=== PATIENT | female | born 1930 | race Caucasian/White ===

== ENCOUNTER 2017-01-08 12:24 | Emergency (ER) | payer MEDICARE, OTHER ==
[~2017-01-08] VITALS: Ht 167.6 cm; Wt 46.7 kg
[~2017-01-08 12:24] MED LIST: ACDPT; ASPI-999 PO; CPR250T; HYDR-757 PO; HYDR12.5 PO; HYDR12.56 PO; LEVO100T46; LEVO112T24; LEVO125T6 PO; LEVO150T PO; LISI10TA2 PO; METO-272 PO; MTP25TSR; MULT-608; PIND5TAB PO
--- OUTSIDE RECORDS SUMMARY | 2017-01-08 12:29 | XMS REPORT | Continuity of Care Document ---
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 Supervisor Name Role Phone LB BENITEZ MD PCP Insurance Providers Payer Name Policy Number Subscriber Name Relationship [employer] [id number] Kayleigh Mello 18 Self / Same As Patient Comm Crossover Enter Ins Name [id number] Diana,Mrs Irwin Yip 18 Self / Same As Patient For Life [id number] Irwin Mello 01 Advance Directives Directive Response Recorded Date/Time Advance Directives Yes 08/28/16 2:48am Resuscitation Status Full Code 08/28/16 2:48am Chief Complaint and Reason for Visit Chief Complaint SVT-UTI-HTN Reason for Visit Hypertension SVT (supraventricular tachycardia) UTI (urinary tract infection) Problems Active Problems Medical Problem Onset Date Status Fracture of phalanx of hand Unknown Acute Hypertension Unknown Acute SVT (supraventricular tachycardia) Unknown Acute UTI (urinary tract infection) Unknown Acute Medications Current Home Medications Medication Dose Units Route Directions Days/Qty Instructions Start Date Lisinopril 10 Mg 10 Mg Oral Daily 08/28/16 Hydrochlorothiazide 12.5 Mg 12.5 Mg Oral Daily 08/28/16 Metoprolol Succinate 50 Mg 50 Mg Oral Daily 30 08/29/16 Aspirin 81 Mg 81 Mg Oral Daily 30 08/29/16 Levothyroxine Sodium 150 Mcg 150 Mcg Oral Daily@0630 30 08/29/16 Past Home Medications Medication Directions Ordered Status Ciprofloxacin Hcl 250 Mg Tablet, 05/10/09 Discontinued Multivitamins 1 Tab Tablet, 05/10/09 Discontinued Levothyroxine Sodium 112 Mcg Tablet, 05/10/09 Discontinued Levothyroxine Sodium 100 Mcg Tablet, 05/10/09 Discontinued Metoprolol Succinate (Metoprolol Er 25MG) 25 Mg Tab, 05/10/09 Discontinued Acetaminophen/Diphenhydramine 1 Ea Tab, 05/10/09 Discontinued Hydrocodone Bit/Acetaminophen 1 Each Tablet, 1 Ea Oral Every 6 Hours as needed for Mild Pain 10/10/13 Discontinued Hydrochlorothiazide 12.5 Mg Tablet, 12.5 Mg Oral Daily 08/28/16 Discontinued Pindolol 5 Mg Tablet, 5 Mg Oral Daily 08/28/16 Discontinued Levothyroxine Sodium 125 Mcg Tablet, 125 Mcg Oral Daily 08/28/16 Discontinued Social History Social History Problem Response Recorded Date/Time Alcohol Use Occasionally Uses 10/10/2013 3:44pm Recreational Drug Use Yes 10/10/2013 3:44pm Recent Foreign Travel No 08/28/2016 2:52am Recent Infectious Disease Exposure No 08/28/2016 2:52am Smoking Status Current Everyday Smoker 08/28/2016 2:51am Type Used Cigarettes 08/29/2016 11:23am Recent Hopitalizations Yes 08/28/2016 2:49am Query Response Start Date Stop Date Smoking Status Current Everyday Smoker Hospital Discharge Instructions Patient Instructions Physician Instructions New, Converted or Re-Newed RX: Transmitted to Pharmacy Goal/Follow Up Appt: Dr Benitez next week Dr Durham in 2 weeks Patient Instructions: Stop smoking Take medicine as directed Discharge Diet: Cardiac Diet Activity as Tolerated: Yes Care Plan Patient Instructions:: Stop smokingTake medicine as directed Goal:: Dr Benitez next weekDr Durham in 2 weeks Plan of Care Discharge Date 08/29/16 11:05am Disposition 01 HOME, SELF-CARE Instructions/Education Provided Palpitations (GEN) Prescriptions See Medication Section Care Plan and Goals See Discharge Instructions Section Functional Status Query Response Date Recorded Patient Orientation Person Place Time Situation Normal For Age August 29, 2016 11:22am Comprehension Ability Understands Concepts August 29, 2016 9:34am Allergies, Adverse Reactions, Alerts No known allergies. Immunizations Name Given Type FLU TRIvalent 5 years - Adult 08/29/16 Administered Vital Signs Acute Vital Signs Vital Response Date/Time Temperature (Fahrenheit) 96.2 degrees F (97.6 - 99.5) 08/29/2016 11:05am Temperature (Calculated Celsius) 35.48203 degrees C (36.4 - 37.5) 08/29/2016 8:00am Temperature Source Tympanic 08/29/2016 11:05am Pulse Rate (adult) 61 bpm (60 - 90) 08/29/2016 11:05am Respiratory Rate 19 bpm (12 - 24) 08/29/2016 11:05am O2 Sat by Pulse Oximetry 97 % (88 - 100) 08/29/2016 11:05am Blood Pressure 166/81 mm Hg 08/29/2016 11:05am Blood Pressure Mean 109 mm Hg 08/29/2016 8:00am Pain Numeric Pain Scale 0-No Pain 08/29/2016 11:05am Height (Feet) 5 feet 08/28/2016 2:52am Height (Inches) 5.00 inches 08/28/2016 2:52am Height (Calculated Centimeters) 165.523135 cm 08/28/2016 2:52am Weight (Pounds) 103 pounds 08/28/2016 6:00am Weight (Ounces) 3.0 oz 08/28/2016 6:00am Weight (Calculated Grams) 47828.063 gm 08/28/2016 6:00am Weight (Calculated Kilograms) 46.962002 kilograms 08/28/2016 6:00am Calculated BMI 17.2 08/28/2016 2:52am Capillary Refill Capillary Refill Less Than 3 Seconds 08/29/2016 9:34am Results Laboratory Results Test Name Result Units Flags Reference Collection Date/Time Result Date/ Time Comments White Blood Count 4.4 10^3/uL 4.3-11.0 08/29/2016 5:38am 08/29/2016 5: 51am Red Blood Count 3.63 10^6/uL L 4.35-5.85 08/29/2016 5:38am 08/29/2016 5: 51am Hemoglobin 11.8 G/DL 11.5-16.0 08/29/2016 5:38am 08/29/2016 5:51am Hematocrit 36 % 35-52 08/29/2016 5:38am 08/29/2016 5:51am Mean Corpuscular Volume 100 FL H 80-99 08/29/2016 5:38am 08/29/2016 5: 51am Mean Corpuscular Hemoglobin 33 PG 25-34 08/29/2016 5:38am 08/29/2016 5: 51am Mean Corpuscular Hemoglobin Concent 33 G/DL 32-36 08/29/2016 5:38am 5:51am Red Cell Distribution Width 13.1 % 10.0-14.5 08/29/2016 5:38am 2015 5:51am Platelet Count 196 10^3/uL 130-400 08/29/2016 5:38am 08/29/2016 5:51am Mean Platelet Volume 9.6 FL 7.4-10.4 08/29/2016 5:38am 08/29/2016 5: 51am Neutrophils (%) (Auto) 60 % 42-75 08/29/2016 5:38am 08/29/2016 5:51am Lymphocytes (%) (Auto) 23 % 12-44 08/29/2016 5:38am 08/29/2016 5:51am Monocytes (%) (Auto) 8 % 0-12 08/29/2016 5:38am 08/29/2016 5:51am Eosinophils (%) (Auto) 8 % 0-10 08/29/2016 5:38am 08/29/2016 5:51am Basophils (%) (Auto) 1 % 0-10 08/29/2016 5:38am 08/29/2016 5:51am Neutrophils # (Auto) 2.7 X 10^3 1.8-7.8 08/29/2016 5:38am 08/29/2016 5: 51am Lymphocytes # (Auto) 1.0 X 10^3 1.0-4.0 08/29/2016 5:38am 08/29/2016 5: 51am Monocytes # (Auto) 0.4 X 10^3 0.0-1.0 08/29/2016 5:38am 08/29/2016 5: 51am Eosinophils # (Auto) 0.4 10^3/uL H 0.0-0.3 08/29/2016 5:38am 08/29/2016 5 :51am Basophils # (Auto) 0.0 10^3/uL 0.0-0.1 08/29/2016 5:38am 08/29/2016 5: 51am D-Dimer 0.39 UG/ML 0.00-0.49 08/27/2016 11:45pm 08/28/2016 12:46am Urine Color YELLOW 08/27/2016 11:59pm 08/28/2016 12:18am Urine Clarity CLEAR 08/27/2016 11:59pm 08/28/2016 12:18am Urine pH 8 5-9 08/27/2016 11:59pm 08/28/2016 12:18am Urine Specific [place] 1.015 * 1.016-1.022 08/27/2016 11:59pm 2015 12:18am Urine Protein NEGATIVE NEGATIVE 08/27/2016 11:59pm 08/28/2016 12: 18am Urine Glucose (UA) NEGATIVE NEGATIVE 08/27/2016 11:59pm 08/28/2016 12 :18am Urine RBC (Auto) 1+ * NEGATIVE 08/27/2016 11:59pm 08/28/2016 12:18am Urine Ketones 1+ * NEGATIVE 08/27/2016 11:59pm 08/28/2016 12:18am Urine Nitrite POSITIVE * NEGATIVE 08/27/2016 11:59pm 08/28/2016 12: 18am Urine Bilirubin NEGATIVE NEGATIVE 08/27/2016 11:59pm 08/28/2016 12: 18am Urine Urobilinogen NORMAL MG/DL NORMAL 08/27/2016 11:59pm 08/28/2016 12 :18am Urine Leukocyte Esterase 1+ * NEGATIVE 08/27/2016 11:59pm 08/28/2016 12 :18am Urine RBC 0-2 /HPF 08/27/2016 11:59pm 08/28/2016 12:18am Urine WBC 0-2 /HPF 08/27/2016 11:59pm 08/28/2016 12:18am Urine Bacteria LARGE /HPF * 08/27/2016 11:59pm 08/28/2016 12:18am Urine Crystals NONE /LPF 08/27/2016 11:59pm 08/28/2016 12:18am Urine Casts NONE /LPF 08/27/2016 11:59pm 08/28/2016 12:18am Urine Mucus NEGATIVE /LPF 08/27/2016 11:59pm 08/28/2016 12:18am Urine Culture Indicated YES 08/27/2016 11:59pm 08/28/2016 12:18am Sodium Level 142 MMOL/L 135-145 08/29/2016 5:38am 08/29/2016 6:11am Potassium Level 4.0 MMOL/L 3.6-5.0 08/29/2016 5:38am 08/29/2016 6:11am Chloride Level 113 MMOL/L H 98-107 08/29/2016 5:38am 08/29/2016 6:11am Carbon Dioxide Level 23 MMOL/L 21-32 08/29/2016 5:38am 08/29/2016 6: 11am Anion Gap 6 MMOL/L 5-14 08/29/2016 5:38am 08/29/2016 6:11am Blood Urea Nitrogen 13 MG/DL 7-18 08/29/2016 5:38am 08/29/2016 6:11am Creatinine 0.68 MG/DL 0.60-1.30 08/29/2016 5:38am 08/29/2016 6:11am BUN/Creatinine Ratio 19 08/29/2016 5:38am 08/29/2016 6:11am Estimat Glomerular Filtration Rate > 60 08/29/2016 5:38am 2015 6:11am GFR INTERPRETIVE DATA UNITS FOR ESTIMATED GFR (eGFR): mL/min/1.73 M2 REFERENCE RANGE FOR ESTIMATED GFR (eGFR) eGFR NORMAL eGFR >60 MODERATELY DECREASED eGFR 30-59 SEVERLY DECREASED eGFR 15-29 KIDNEY FAILURE <15 (OR DIALYSIS) Glucose Level 92 MG/DL 70-105 08/29/2016 5:38am 08/29/2016 6:11am Calcium Level 8.1 MG/DL L 8.5-10.1 08/29/2016 5:38am 08/29/2016 6:11am Magnesium Level 2.2 MG/DL 1.8-2.4 08/29/2016 5:38am 08/29/2016 6:11am Total Bilirubin 0.4 MG/DL 0.1-1.0 08/27/2016 11:45pm 08/28/2016 12: 26am Alkaline Phosphatase 74 U/L 40-136 08/27/2016 11:45pm 08/28/2016 12: 26am Aspartate Amino Transf (AST/SGOT) 61 U/L H 5-34 08/27/2016 11:45pm 2015 12:26am Alanine Aminotransferase (ALT/SGPT) 42 U/L 0-55 08/27/2016 11:45pm 10/2016 12:26am Troponin I < 0.30 NG/ML <0.30 08/27/2016 11:45pm 08/28/2016 12:46am B-Type Natriuretic Peptide 166.4 PG/ML H <100.0 08/27/2016 11:45pm 2015 12:46am Total Protein 6.8 G/DL 6.4-8.2 08/27/2016 11:45pm 08/28/2016 12:26am Albumin 4.1 G/DL 3.2-4.5 08/27/2016 11:45pm 08/28/2016 12:26am Thyroid Stimulating Hormone (TSH) 42.55 UIU/ML H 0.35-4.94 08/27/2016 11: 45pm 08/28/2016 12:46am Free Thyroxine 0.81 NG/DL 0.70-1.48 08/28/2016 10:05am 08/28/2016 10: 50am Microbiology Results Procedure Source Result Collection Date/Time Result Date/Time Urine Culture Urine, Clean Catch KLEBSIELLA PNEUMONIAE 08/27/2016 11:59pm 08/29/2016 11:13am Procedures Procedure Status Date Provider(s) Tracing only of electrocardiogram Completed 08/27/16 MAYTE BAXTER DO Color Doppler echocardiography Active 08/28/16 KOBY DURHAM MD FAC FAC CCDS Encounters Encounter Location Arrival/Admit Date Discharge/Depart Date Attending Provider Discharged Inpatient (obs) [facility] 08/28/16 1:05am 11:05am LB BENITEZ MD Recent Diagnosis Hypertension SVT (supraventricular tachycardia) UTI (urinary tract infection)
--- NOTE | 2017-01-08 12:50 | ED Fall/Injury ---
General Chief Complaint: Trauma-Non Activation Stated Complaint: FALL/LEFT HIP PAIN Source: patient, family (DAUGHTERS), EMS History of Present Illness Time seen by provider: 12:24 Initial Comments PT ARRIVES VIA EMS FROM HOME PT STATES SHE WAS GETTING INTO BED AND MISSED THE BED AND FELL, LANDING ON LEFT HIP WAS ABLE TO GET HERSELF UP AT THAT TIME, BUT LATER SHE FELL AGAIN AND COULD NOT GET UP AND LAID ON THE FLOOR ALL NIGHT LONG C/O LEFT HIP PAIN ON STANDING. NO PAIN AT REST. HAS NOT TAKEN ANYTHING FOR PAIN STATES SHE DID NOT HIT HER HEAD AND NO LOSS OF CONSCIOUSNESS NO OTHER INJURIES OR PAIN NO PARESTHESIAS OR MOTOR DEFICITS PT STATES SHE HAS BALANCE PROBLEMS AND DOES FALL OCCASIONALLY, BUT REFUSES TO USE A WALKER OR CANE AND REFUSES TO GET A "LIFE ALERT" DEVICE--PT LIVES ALONE PT ALSO STATES SHE HAS BEEN SICK SINCE Friday01/03/17 WITH COUGH/CONGESTION AND FEVER OF AT LEAST 101--STATES "MIGHT HAVE BEEN HIGHER, BUT I DIDN'T CHECK IT ANY MORE" NO CHEST PAIN OR SHORTNESS OF BREATH NO NAUSEA/VOMITING/DIARRHEA PCP: DR. BENITEZ Allergies and Home Medications Allergies Coded Allergies: No Known Drug Allergies (Verified , 05/10/09) Home Medications Aspirin 81 Mg Tab.chew #30 81 MG PO DAILY Prescribed by: FUNMI LANDIN on 08/29/16 1031 Hydrochlorothiazide 12.5 Mg Capsule 12.5 MG PO DAILY (Reported) Ketorolac Tromethamine 10 Mg Tablet #15 10 MG PO Q6H Prescribed by: WES NICHOLAS on 01/08/17 1601 Levothyroxine Sodium 150 Mcg Tablet #30 150 MCG PO DAILY@0630 Prescribed by: FUNMI LANDIN on 08/29/16 1031 Lisinopril 10 Mg Tablet 10 MG PO DAILY (Reported) Metoprolol Succinate 50 Mg Tab.er.24h #30 50 MG PO DAILY Prescribed by: FUNMI LANDIN on 08/29/16 1031 Nitrofurantoin Monohyd/M-Cryst 100 Mg Capsule #20 100 MG PO BID Prescribed by: WES NICHOLAS on 01/08/17 1601 Tramadol HCl 50 Mg Tablet #20 50 MG PO Q4H Prescribed by: WES NICHOLAS on 01/08/17 1601 Constitutional: see HPI fever weakness Eyes: No Symptoms Reported Ears, Nose, Mouth, Throat: see HPI Respiratory: see HPI cough Cardiovascular: no symptoms reported other (HAS HISTORY OF IRREGULAR HEART BEAT BUT NO SYMPTOMS RECENTLY) Gastrointestinal: no symptoms reported Genitourinary: no symptoms reported Musculoskeletal: see HPINo neck pain Skin: no symptoms reported Psychiatric/Neurological: No Symptoms ReportedDenies Headache Past Jndphjp-Lyfyan-Tkrjbj Hx Patient Social History Alcohol Use: Occasionally Uses Recreational Drug Use: No Smoking Status: Current Everyday Smoker (1/2 PPD--USED TO SMOKE MORE BUT NOT SURE HOW MUCH--"DAY AND NIGHT") Type Used: Cigarettes Recent Hopitalizations: Yes Immunizations Up To Date Date of Pneumonia Vaccine: Sep 17, 2011 Seasonal Allergies Seasonal Allergies: No Surgeries HX Surgeries: Yes (HEMORROIDECTOMY, HYSTERECTOMY/BSO) Surgeries: Adenoidectomy, Appendectomy, Hysterectomy, Oophorectomy, Rectal, Tonsillectomy Respiratory Hx Respiratory Disorders: No Cardiovascular Hx Cardiac Disorders: Yes Cardiac Disorders: Hypertension, Irregular Heartbeat Neurological Hx Neurological Disorders: Yes (TREMORS) Reproductive System Hx 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, 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 Genitourinary Hx Genitourinary Disorders: No Gastrointestinal Hx Gastrointestinal Disorders: Yes Gastrointestinal Disorders: Chronic Constipation, Hemorrhoids Musculoskeletal Hx Musculoskeletal Disorders: Yes (RIGHT CARPAL TUNNEL--NO SURGERY) Musculoskeletal Disorders: Arthritis, Chronic Back Pain Endocrine Hx Endocrine Disorders: Yes Endocrine Disorders: Hypothyroidsim HEENT HX ENT Disorders: No Cancer Hx Cancer: No Psychosocial Hx Psychiatric Problems: No Integumentary HX Skin/Integumentary Disorder: No Blood Transfusions Hx Blood Disorders: Yes Physical Exam Vital Signs Vital Sign - Last 12Hours 01/08/17 12:42 Temp 100.5 Pulse 72 Resp 18 B/P 110/61 O2 Delivery Room Air O2 Flow Rate 2 Capillary Refill : General Appearance: no apparent distress thin HEENT: PERRL/EOMI normal ENT inspection Neck: non-tender full range of motion supple normal inspectionNo carotid bruit Cardiovascular: normal peripheral pulses regular rate, rhythm no edema no JVD no murmur Respiratory: no respiratory distress no accessory muscle use rales (IN RIGHT BASE) rhonchi (IN RIGHT BASE) Gastrointestinal: normal bowel sounds non tender soft Back: normal inspection no CVA tenderness no vertebral tenderness Extremities: no pedal edema no calf tenderness normal capillary refill other ( TENDERNESS OVER LEFT HIP; LEFT BUTTOCK WITH FIRM SWELLING AND MUCH TENDERNSS. 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 no motor/sensory deficits alert normal mood/affect oriented x 3 Skin: normal color warm/dry [place] Coma Score Best Eye Response: (4) Open Spontaneously Best Verbal Response: (5) Oriented Best Motor Response: (6) Obeys Commands Faith Total: 15 Progress/Results/Core Measures Results/Orders Lab Results Laboratory Tests Test 01/08/17 13:19 01/08/17 14:17 Range/Units Activated Partial Thromboplast Time 29 24-35 SEC Alanine Aminotransferase (ALT/SGPT) 19 0-55 U/L Albumin 3.7 3.2-4.5 G/DL Alkaline Phosphatase 55 40-136 U/L Anion Gap 12 5-14 MMOL/L Aspartate Amino Transf (AST/SGOT) 34 5-34 U/L BUN/Creatinine Ratio 26 Band Neutrophils 9 % Basophils # (Auto) 0.0 0.0-0.1 10^3/uL Basophils % (Manual) 0 % Basophils (%) (Auto) 0 0-10 % Blood Urea Nitrogen 23 H 7-18 MG/DL Calcium Level 8.3 L 8.5-10.1 MG/DL Carbon Dioxide Level 24 21-32 MMOL/L Chloride Level 98 98-107 MMOL/L Creatinine 0.88 0.60-1.30 MG/DL Eosinophils # (Auto) 0.0 0.0-0.3 10^3/uL Eosinophils % (Manual) 0 % Eosinophils (%) (Auto) 0 0-10 % Estimat Glomerular Filtration Rate > 60 Glucose Level 118 H 70-105 MG/DL Hematocrit 35 35-52 % Hemoglobin 11.7 11.5-16.0 G/DL INR Comment 1.1 0.8-1.4 Lymphocytes # (Auto) 0.5 L 1.0-4.0 X 10^3 Lymphocytes % (Manual) 8 % Lymphocytes (%) (Auto) 6 L 12-44 % Mean Corpuscular Hemoglobin 32 25-34 PG Mean Corpuscular Hemoglobin Concent 34 32-36 G/DL Mean Corpuscular Volume 95 80-99 FL Mean Platelet Volume 10.3 7.4-10.4 FL Monocytes # (Auto) 0.5 0.0-1.0 X 10^3 Monocytes % (Manual) 4 % Monocytes (%) (Auto) 6 0-12 % Neutrophils # (Auto) 7.3 1.8-7.8 X 10^3 Neutrophils % (Manual) 79 % Neutrophils (%) (Auto) 88 H 42-75 % Platelet Count 166 130-400 10^3/uL Poikilocytosis SLIGHT Potassium Level 4.2 3.6-5.0 MMOL/L Prothrombin Time 13.4 12.2-14.7 SEC Red Blood Count 3.67 L 4.35-5.85 10^6/uL Red Cell Distribution Width 13.3 10.0-14.5 % Sodium Level 134 L 135-145 MMOL/L Total Bilirubin 0.4 0.1-1.0 MG/DL Total Protein 6.1 L 6.4-8.2 G/DL White Blood Count 8.3 4.3-11.0 10^3/uL Urine Bacteria LARGE H /HPF Urine Bilirubin NEGATIVE NEGATIVE Urine Casts PRESENT /LPF Urine Clarity CLEAR Urine Color YELLOW Urine Crystals NONE /LPF Urine Culture Indicated YES Urine Glucose (UA) NEGATIVE NEGATIVE Urine Hyaline Casts 2-5 H /LPF Urine Ketones NEGATIVE NEGATIVE Urine Leukocyte Esterase 3+ H NEGATIVE Urine Mucus NEGATIVE /LPF Urine Nitrite NEGATIVE NEGATIVE Urine Protein 1+ H NEGATIVE Urine RBC 10-25 H /HPF Urine RBC (Auto) 4+ H NEGATIVE Urine Specific [place] 1.020 1.016-1.022 Urine Urobilinogen NORMAL NORMAL MG/DL Urine WBC 25-50 H /HPF Urine pH 5 5-9 Micro Results Microbiology 01/08/17 Influenza Types A,B Antigen (ROSALES) - Final, Complete My Orders Orders-WES NICHOLAS DO Saline Lock/Iv-Start (01/08/17 12:39) O2 (01/08/17 12:39) Monitor-Rhythm Ecg Trace Only (01/08/17 12:39) Cbc With Automated Diff (01/08/17 12:39) Comprehensive Metabolic Panel (01/08/17 12:39) Protime With Inr (01/08/17 12:39) Partial Thromboplastin Time (01/08/17 12:39) Ua Culture If Indicated (01/08/17 12:39) Blood Culture (01/08/17 12:39) Influenza A And B Antigens (01/08/17 12:39) Chest Pa/Lat (2 View) (01/08/17 12:39) Pelvis (01/08/17 12:39) Hip, Left, 2 Views (01/08/17 12:39) Ketorolac Injection (Toradol Injection) (01/08/17 13:30) Manual Differential (01/08/17 13:19) Ct Chest/Abdomen/Pelvis W (01/08/17 13:58) Iohexol Injection (Omnipaque 350 Mg/Ml 1 (01/08/17 14:30) Ns (Ivpb) (Sodium Chloride 0.9% Ivpb Bag (01/08/17 14:30) Urine Culture (01/08/17 14:17) Ceftriaxone Injection (Rocephin Injectio (01/08/17 15:45) Walker (01/08/17 16:02) Accucheck Stat ONCE (01/08/17 16:06) Saline Lock/Iv-Start (01/08/17 16:06) Medications Given in ED Current Medications Medications Dose Ordered Sig/Lesly Route Start Time Stop Time Status Last Admin Dose Admin Ceftriaxone Sodium/Sodium Chloride 50 ml @ 100 mls/hr ONCE ONCE IV 01/08/17 15:45 01/08/17 16:14 01/08/17 15:51 100 MLS/HR Iohexol 100 ml ONCE ONCE IV 01/08/17 14:30 01/08/17 14:31 DC 01/08/17 14:30 100 ML Ketorolac Tromethamine 30 mg ONCE ONCE IVP 01/08/17 13:30 01/08/17 13:31 DC 01/08/17 13:32 30 MG Sodium Chloride 100 ml 100 ml ONCE ONCE IV 01/08/17 14:30 01/08/17 14:31 DC 01/08/17 14:30 100 ML Vital Signs/I&O Vital Sign - Last 12Hours 01/08/17 01/08/17 12:42 12:42 Temp 100.5 Pulse 72 Resp 18 B/P 110/61 O2 Delivery Room Air Nasal Cannula O2 Flow Rate 2 Progress Note : Progress Note PAIN EASED WITH PAIN MEDICATION--TORADOL PT AND FAMILY COMFORTABLE WITH PT GOING HOME--WILL SEND PT HOME WITH A WALKER Diagnostic Imaging Comments CXR--NO ACUTE PROCESS XRAYS PELVIS AND LEFT HIP--NO ACUTE PROCESS PER RADIOLOGIST REPORTS @ 1350 CT CHEST / ABDOMEN/ PELVIS--LEFT BUTTOCK HEMATOMA, OTHERWISE NO ACUTE PROCESS, PER RADIOLOGIST REPORT @ 1553 Reviewed: Reviewed by Me Departure Impression Impression: Primary Impression: Status post fall Additional Impressions: Contusion of left hip, initial encounter HEMATOMA LEFT BUTTOCK UTI (urinary tract infection) Disposition: 01 HOME, SELF-CARE Condition: Stable Departure-Patient Inst. Referrals: LB BENITEZ MD (PCP/Family) Primary Care Physician Patient Instructions: Contusion (DC), Getting Up From a Fall, HEMATOMA, Preventing Falls in the Older Adult, Urinary Tract Infection, Adult (DC) Add. Discharge Instructions: USE WALKER AT ALL TIMES ALTERNATE ICE AND HEAT TO SORE AREAS AT 20 MINUTE INTERVALS FOLLOW UP WITH YOUR DR IN 3-4 DAYS FOR FURTHER CARE All discharge instructions reviewed with patient and/or family. Voiced understanding. Scripts Tramadol HCl (Ultram)50 Mg [id number] Mg PO Q4H #20 TAB Prov:WES NICHOLAS DO 01/08/17 Ketorolac Tromethamine 10 Mg [id number] Mg PO Q6H Pain #15 TAB Prov:WES NICHOLAS DO 01/08/17 Nitrofurantoin Monohyd/M-Cryst (Macrobid 100 mg Capsule)100 Mg [id number] Mg PO BID #20 CAP Prov:WES NICHOLAS DO 01/08/17 WES NICHOLAS DO Jan 08, 2017 12:50
--- NOTE | 2017-01-08 13:29 | Diagnostic Imaging Report ---
INDICATION: Fall with left hip pain. TECHNIQUE: AP and oblique views of the left hip were obtained. FINDINGS: No fracture or acute bony abnormality is seen. There is no dislocation. There is mild joint space narrowing. IMPRESSION: No acute fracture is visualized. Mild joint space narrowing of the left hip. Dictated by: Dictated on workstation # [id number]
--- NOTE | 2017-01-08 13:29 | Diagnostic Imaging Report ---
INDICATION: Status post fall with chest discomfort. TECHNIQUE: PA and lateral views of the chest were obtained at 1:15 PM. FINDINGS: The heart and mediastinal silhouette are unremarkable. There is hyperinflation, compatible with COPD. There is no acute infiltrate, pneumothorax, or pleural fluid. There is no overt bony abnormality in the chest. IMPRESSION: COPD changes with no acute process in the chest. Dictated by: Dictated on workstation # [id number]
--- NOTE | 2017-01-08 13:29 | Diagnostic Imaging Report ---
INDICATION: Fall with left pelvic and hip pain. FINDINGS: No symphyseal or SI joint diastasis. Obturator rings intact. The femoral head is directed into the acetabula. Fracture is not identified. No pathological displacement of air-containing pelvic bowel loops. IMPRESSION: Unremarkable AP pelvic radiograph complete. Dictated by: Dictated on workstation # [id number]
[2017-01-08 13:30] LABS: BASOPHILS % (AUTO) 0 % (0-10); EOSINOPHILS % (AUTO) 0 % (0-10); LYMPHOCYTES # (AUTO) 0.5 X 10^3 (1.0-4.0); LYMPHOCYTES % (AUTO) 6 % (12-44); MEAN CORPUSCULAR HEMOGLOBIN 32 PG (25-34); MEAN CORPUSCULAR HGB CONC 34 G/DL (32-36); MEAN CORPUSCULAR VOLUME 95 FL (80-99); MEAN PLATELET VOLUME 10.3 FL (7.4-10.4); MONOCYTES # (AUTO) 0.5 X 10^3 (0.0-1.0); MONOCYTES % (AUTO) 6 % (0-12); NEUTROPHILS # (AUTO) 7.3 X 10^3 (1.8-7.8); NEUTROPHILS % (AUTO) 88 % (42-75); PLATELET COUNT 166 10^3/uL (130-400); RED BLOOD COUNT 3.67 10^6/uL (4.35-5.85); RED CELL DISTRIBUTION WIDTH 13.3 % (10.0-14.5); WHITE BLOOD COUNT 8.3 10^3/uL (4.3-11.0)
[2017-01-08] MEDS ORDERED: KETOROLAC 30 MG/ML VIAL IVP ONE (13:30)
[2017-01-08 13:49] LABS: INR 1.1 (0.8-1.4); PROTHROMBIN TIME PATIENT 13.4 SEC (12.2-14.7)
[2017-01-08 13:57] LABS: ALANINE AMINOTRANSFERASE 19 U/L (0-55); ALBUMIN 3.7 G/DL (3.2-4.5); ANION GAP 12 MMOL/L (5-14); ASPARTATE AMINO TRANSFERASE 34 U/L (5-34); BILIRUBIN,TOTAL 0.4 MG/DL (0.1-1.0); BLOOD UREA NITROGEN 23 MG/DL (7-18); BUN/CREATININE RATIO 26; CALCIUM 8.3 MG/DL (8.5-10.1); CARBON DIOXIDE 24 MMOL/L (21-32); CHLORIDE 98 MMOL/L (98-107); CREATININE SERUM 0.88 MG/DL (0.60-1.30); GFR ESTIMATED > 60; GLUCOSE 118 MG/DL (70-105); POTASSIUM 4.2 MMOL/L (3.6-5.0); SODIUM 134 MMOL/L (135-145); TOTAL PROTEIN 6.1 G/DL (6.4-8.2)
[2017-01-08 14:25] LABS: BILIRUBIN,URINE NEGATIVE (NEGATIVE); KETONES,URINE NEGATIVE (NEGATIVE); LEUKOCYTE ESTERASE ,URINE 3+ (NEGATIVE); NITRITE,URINE NEGATIVE (NEGATIVE); PH,URINE 5 (5-9); PROTEIN,URINE 1+ (NEGATIVE); UROBILINOGEN,URINE NORMAL (NORMAL)
[2017-01-08 14:26] LABS: BAND NEUTROPHILS 9 %; BASOPHILS % (MANUAL) 0 %; EOSINOPHILS % (MANUAL) 0 %; LYMPHOCYTES % (MANUAL) 8 %; NEUTROPHILS % (MANUAL) 79 %; POIKILOCYTOSIS SLIGHT
[2017-01-08] MEDS ORDERED: NS 100 ML (IVPB) BAG IV ONE (14:30)
[2017-01-08] MEDS ORDERED: IOHEXOL 350 MG/ML 100 ML (OMNIPAQUE 350) VIAL IV ONE (14:30)
[2017-01-08 14:33] LABS: WBC,URINE 25-50 /HPF
[2017-01-08] MEDS ORDERED: cefTRIAXone INJECTION 1,000 MG in NS (IVPB) 50 ML IV ONE (15:45)
--- NOTE | 2017-01-08 15:49 | Diagnostic Imaging Report ---
PROCEDURE: CT chest, abdomen, and pelvis with contrast. TECHNIQUE: Multiple contiguous axial images were obtained through the chest, abdomen, and pelvis after the administration of intravenous contrast. INDICATION: Fall with left hip and chest pain. COMPARISON: Exam compared with chest CT study of 05/10/2009. FINDINGS: Chest: There is no pneumothorax. There is no hemothorax. Cyst formation, most notably in the left lower lobe, is a chronic finding. No findings suggestive of lung contusion. There is trace dependent basilar atelectasis, greater on the left. The atherosclerotic aorta is nonaneurysmal, intact, and showed no intimal injury or rupture. There is no rib fracture deformity. No evidence for pleural hematoma. No mass or lymphadenopathy. The pericardium is unremarkable. Partially visualized shoulders are nonacute, where included in the [id number]. Abdomen and pelvis: There is no intraperitoneal fluid or findings of hemoperitoneum. There is no evidence of a hollow viscus rupture. There is atherosclerosis. Dense calcifications and ectasia of the splenic arterial structures. The spleen itself is unremarkable with old benign granulomatous disease noted. Liver and spleen are nonacute and the kidneys are unobstructed and appeared well perfused. There is no adrenal mass or hematoma. The pancreas is normal. The atherosclerotic abdominal aorta shows some fusiform ectasia of its infrarenal segment at the level of the takeoff of the ANNA measuring 2.4 cm. No chiqui aneurysm formation. There is no extravasation of contrast from the urinary bladder on the delayed images. The bladder appeared unremarkable. Superior and inferior pubic rami are intact. Symphyseal and SI joint degenerative changes are chronic without diastasis. No pelvic or hip fractures identified. There is swelling and enlargement of the left gluteus medius and arlette musculature with some mild induration of the superficial subcutaneous fat in the left buttock. There was no extravasation of contrast media to suggest active bleeding and the adjacent osseous structures aside from degenerative change appeared otherwise unremarkable. IMPRESSION: 1. Chest: Chronic cystic changes. Atherosclerosis. No fracture deformity or findings of pulmonary parenchymal or pleural injury. No mediastinal hematoma or acute traumatic sequelae. 2. Abdomen and pelvis: Left gluteal swelling, in the setting of trauma presumed from intramuscular hemorrhage. No extravasation of contrast to suggest active bleeding at the time of the study and no demonstrated pelvic fracture. 3. No findings of abdominopelvic solid or hollow visceral injury. No hemoperitoneum. Dictated by: Dictated on workstation # [id number]
[2017-01-08] MEDS ORDERED: KETO10TA PO (16:01)
[2017-01-08] MEDS ORDERED: TRAM-42 PO (16:01)
[2017-01-08] MEDS ORDERED: NITR-65 PO (16:01)
[2017-01-08] MEDS ORDERED: NS IV 1000 ML 1,000 ML IV ONE (16:06)
[2017-01-08] MEDS ORDERED: inSUlin (REGULAR) HUMAN 1 UNIT/0.01 ML (CHARGE PER UNIT) IV ONE (16:15)
[2017-01-08 16:30] VITALS: BP 113/76
== END 2017-01-08 16:30 | disposition home or self-care (01) ==
LOC: EDUNIT# 12:24 → ER 12:26
DX: S70.02XA Contusion of left hip, initial encounter (principal); N39.0 Urinary tract infection, site not specified; I70.91 Generalized atherosclerosis; I10 Essential (primary) hypertension; J44.9 Chronic obstructive pulmonary disease, unspecified; F17.210 Nicotine dependence, cigarettes, uncomplicated; Z79.82 Long term (current) use of aspirin; Z79.899 Other long term (current) drug therapy; W01.0XXA Fall on same level from slipping, tripping and stumbling without subsequent striking against object, initial encounter; Y92.013 Bedroom of single-family (private) house as the place of occurrence of the external cause; Y99.8 Other external cause status
CPT/HCPCS: 36415; 71020; 71260; 72170; 73502; 74177; 80053; 81000; 85007; 85027; 85610; 85730; 87040; 87088; 87186; 87804; 93041; 96365; 96375

== ENCOUNTER 2017-04-12 06:19 | Emergency (ER) | payer MEDICARE, OTHER ==
[~2017-04-12] VITALS: Ht 165.1 cm; Wt 46.3 kg
[~2017-04-12 06:19] MED LIST changes: +KETO10TA PO; +NITR-65 PO; +TRAM-42 PO
[2017-04-12 06:50] LABS: BASOPHILS % (AUTO) 1 % (0-10); EOSINOPHILS # (AUTO) 0.4 10^3/uL (0.0-0.3); EOSINOPHILS % (AUTO) 8 % (0-10); LYMPHOCYTES # (AUTO) 1.1 X 10^3 (1.0-4.0); LYMPHOCYTES % (AUTO) 19 % (12-44); MEAN CORPUSCULAR HEMOGLOBIN 32 PG (25-34); MEAN CORPUSCULAR HGB CONC 33 G/DL (32-36); MEAN CORPUSCULAR VOLUME 97 FL (80-99); MONOCYTES # (AUTO) 0.4 X 10^3 (0.0-1.0); MONOCYTES % (AUTO) 8 % (0-12); NEUTROPHILS # (AUTO) 3.6 X 10^3 (1.8-7.8); NEUTROPHILS % (AUTO) 65 % (42-75); PLATELET COUNT 269 10^3/uL (130-400); RED BLOOD COUNT 4.02 10^6/uL (4.35-5.85); WHITE BLOOD COUNT 5.5 10^3/uL (4.3-11.0)
[2017-04-12 07:02] LABS: ALANINE AMINOTRANSFERASE 19 U/L (0-55); ALBUMIN 3.9 G/DL (3.2-4.5); ANION GAP 11 MMOL/L (5-14); ASPARTATE AMINO TRANSFERASE 28 U/L (5-34); BILIRUBIN,TOTAL 0.2 MG/DL (0.1-1.0); BLOOD UREA NITROGEN 15 MG/DL (7-18); BUN/CREATININE RATIO 20; CALCIUM 9.2 MG/DL (8.5-10.1); CARBON DIOXIDE 24 MMOL/L (21-32); CHLORIDE 105 MMOL/L (98-107); CREATININE SERUM 0.74 MG/DL (0.60-1.30); GFR ESTIMATED > 60; GLUCOSE 99 MG/DL (70-105); POTASSIUM 3.9 MMOL/L (3.6-5.0); SODIUM 140 MMOL/L (135-145); TOTAL PROTEIN 6.7 G/DL (6.4-8.2)
[2017-04-12 07:07] LABS: TROPONIN I < 0.30 NG/ML (<0.30)
[2017-04-12 07:10] LABS: BILIRUBIN,URINE NEGATIVE (NEGATIVE); KETONES,URINE NEGATIVE (NEGATIVE); LEUKOCYTE ESTERASE ,URINE 1+ (NEGATIVE); NITRITE,URINE NEGATIVE (NEGATIVE); PH,URINE 7 (5-9); PROTEIN,URINE NEGATIVE (NEGATIVE); UROBILINOGEN,URINE NORMAL (NORMAL)
[2017-04-12 07:26] LABS: HYALINE CASTS, URINE RARE /LPF; SQUAMOUS EPITHELIAL CELL,UR RARE /HPF
--- NOTE | 2017-04-12 07:26 | ED Cardiac General ---
History of Present Illness General Chief Complaint: Cardiac/General Problems Stated Complaint: CP Nursing Triage Note: Pt brought to ED by EMS with c/o intermittent chest heaviness that began at approx 0200.Hx of afib, was in afib upon EMS arrival with HR of 148. Source: patient Exam Limitations: no limitations History of Present Illness Time seen by provider: 07:22 Initial Comments The patient is an 86-year-old white female who presented by ambulance this morning. She is a bit loose on the chronology but apparently she became aware at about 0200 of a pounding in her chest. She has a past history of atrial fibrillation but states she has never had pounding before. After a bit she noted a pressure sensation in her chest and felt short of breath. She denies sweating or radiation of pain. There is no past history of heart attack or stroke. 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 Timing/Duration: 4-6 hours Location: central Prior CP/Workup: echocardiography Allergies and Home Medications Allergies Coded Allergies: No Known Drug Allergies (Verified , 05/10/09) Home Medications Aspirin 81 Mg Tab.chew, 81 MG PO DAILY, #30 Prescribed by: FUNMI LANDIN on 08/29/16 1031 Hydrochlorothiazide 12.5 Mg Capsule, 12.5 MG PO DAILY, (Reported) Ketorolac Tromethamine 10 Mg Tablet, 10 MG PO Q6H, #15 Prescribed by: WES NICHOLAS on 01/08/17 1601 Levothyroxine Sodium 150 Mcg Tablet, 150 MCG PO DAILY@0630, #30 Prescribed by: FUNMI LANDIN on 08/29/16 1031 Lisinopril 10 Mg Tablet, 10 MG PO DAILY, (Reported) Metoprolol Succinate 50 Mg Tab.er.24h, 50 MG PO DAILY, #30 Prescribed by: FUNMI LANDIN on 08/29/16 1031 Review of Systems Constitutional: see HPI EENTM: No Symptoms Reported Respiratory: SOA at Rest Cardiovascular: Chest Pain, Palpitations Gastrointestinal: No Symptoms Reported Genitourinary: No Symptoms Reported Musculoskeletal: no symptoms reported Skin: no symptoms reported Psychiatric/Neurological: No Symptoms Reported Endocrine: No Symptoms Reported Past Oqjrolv-Xufjsj-Brurba Hx Patient Social History Alcohol Use: Occasionally Uses Recreational Drug Use: Yes Smoking Status: Current Everyday Smoker Type Used: Cigarettes 2nd Hand Smoke Exposure: No Recent Foreign Travel: No Contact w/Someone Who Travel: No Recent Infectious Disease Expo: No Recent Hopitalizations: No Immunizations Up To Date Tetanus Booster (TDap): Less than 5yrs Date of Pneumonia Vaccine: Sep 17, 2011 Seasonal Allergies Seasonal Allergies: No Surgeries HX Surgeries: Yes (HEMORROIDECTOMY, HYSTERECTOMY/BSO) Surgeries: Adenoidectomy, Appendectomy, Hysterectomy, Oophorectomy, Rectal, Tonsillectomy Respiratory Hx Respiratory Disorders: No Cardiovascular Hx Cardiac Disorders: Yes Cardiac Disorders: Hypertension, Irregular Heartbeat Neurological Hx Neurological Disorders: Yes (TREMORS) Reproductive System Hx 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 Genitourinary Hx Genitourinary Disorders: No Gastrointestinal Hx Gastrointestinal Disorders: Yes Gastrointestinal Disorders: Chronic Constipation, Hemorrhoids Musculoskeletal Hx Musculoskeletal Disorders: Yes (RIGHT CARPAL TUNNEL--NO SURGERY) Musculoskeletal Disorders: Arthritis, Chronic Back Pain Endocrine Hx Endocrine Disorders: Yes Endocrine Disorders: Hypothyroidsim HEENT HX ENT Disorders: No Cancer Hx Cancer: No Psychosocial Hx Psychiatric Problems: No Integumentary HX Skin/Integumentary Disorder: No Blood Transfusions Hx Blood Disorders: Yes Physical Exam Vital Signs Vital Sign - Last 12Hours 04/12/17 06:20 Temp 97.8 Pulse 57 Resp 18 B/P (MAP) 156/86 Pulse Ox 98 Capillary Refill : Less Than 3 Seconds General Appearance: Mild Distress HEENT: Normal ENT Inspection Neck: Normal Inspection Respiratory: Chest Non Tender, Lungs Clear, Normal Breath Sounds, No Accessory Muscle Use, No Respiratory Distress Cardiovascular: Regular Rate, Rhythm, No Edema, No Gallop, No JVD, No Murmur, Normal Peripheral Pulses Gastrointestinal: Normal Bowel Sounds, No Organomegaly, No Pulsatile Mass, Non Tender Extremity: Normal Capillary Refill, Normal Inspection, Normal Range of Motion, Non Tender, No Calf Tenderness, No Pedal Edema Neurologic/Psychiatric: Alert, Oriented x3, No Motor/Sensory Deficits, Normal Mood/Affect Skin: Normal Color, Warm/Dry Lymphatic: No Adenopathy Other comments The patient had a monitor strip on EMS arrival which was nearly regular and was consistent with atrial fibrillation-flutter and RVR. The initial strip in the emergency room was that of sinus rhythm. Progress/Results/Core Measures Results/Orders Lab Results Laboratory Tests Test 04/12/17 06:20 04/12/17 06:53 Range/Units White Blood Count 5.5 4.3-11.0 10^3/uL Red Blood Count 4.02 L 4.35-5.85 10^6/uL Hemoglobin 12.8 11.5-16.0 G/DL Hematocrit 39 35-52 % Mean Corpuscular Volume 97 80-99 FL Mean Corpuscular Hemoglobin 32 25-34 PG Mean Corpuscular Hemoglobin Concent 33 32-36 G/DL Red Cell Distribution Width 13.0 10.0-14.5 % Platelet Count 269 130-400 10^3/uL Mean Platelet Volume 10.0 7.4-10.4 FL Neutrophils (%) (Auto) 65 42-75 % Lymphocytes (%) (Auto) 19 12-44 % Monocytes (%) (Auto) 8 0-12 % Eosinophils (%) (Auto) 8 0-10 % Basophils (%) (Auto) 1 0-10 % Neutrophils # (Auto) 3.6 1.8-7.8 X 10^3 Lymphocytes # (Auto) 1.1 1.0-4.0 X 10^3 Monocytes # (Auto) 0.4 0.0-1.0 X 10^3 Eosinophils # (Auto) 0.4 H 0.0-0.3 10^3/uL Basophils # (Auto) 0.0 0.0-0.1 10^3/uL Sodium Level 140 135-145 MMOL/L Potassium Level 3.9 3.6-5.0 MMOL/L Chloride Level 105 98-107 MMOL/L Carbon Dioxide Level 24 21-32 MMOL/L Anion Gap 11 5-14 MMOL/L Blood Urea Nitrogen 15 7-18 MG/DL Creatinine 0.74 0.60-1.30 MG/DL Estimat Glomerular Filtration Rate > 60 BUN/Creatinine Ratio 20 Glucose Level 99 70-105 MG/DL Calcium Level 9.2 8.5-10.1 MG/DL Total Bilirubin 0.2 0.1-1.0 MG/DL Aspartate Amino Transf (AST/SGOT) 28 5-34 U/L Alanine Aminotransferase (ALT/SGPT) 19 0-55 U/L Alkaline Phosphatase 62 40-136 U/L Troponin I < 0.30 <0.30 NG/ML Total Protein 6.7 6.4-8.2 G/DL Albumin 3.9 3.2-4.5 G/DL Urine Color YELLOW Urine Clarity SLIGHTLY CLOUDY Urine pH 7 5-9 Urine Specific [place] 1.010 L 1.016-1.022 Urine Protein NEGATIVE NEGATIVE Urine Glucose (UA) NEGATIVE NEGATIVE Urine Ketones NEGATIVE NEGATIVE Urine Nitrite NEGATIVE NEGATIVE Urine Bilirubin NEGATIVE NEGATIVE Urine Urobilinogen NORMAL NORMAL MG/DL Urine Leukocyte Esterase 1+ H NEGATIVE Urine RBC (Auto) NEGATIVE NEGATIVE Urine RBC NONE /HPF Urine WBC 2-5 /HPF Urine Squamous Epithelial Cells RARE /HPF Urine Crystals NONE /LPF Urine Bacteria MODERATE H /HPF Urine Casts PRESENT /LPF Urine Hyaline Casts RARE /LPF Urine Mucus NEGATIVE /LPF Urine Culture Indicated YES My Orders Orders - ALISSON KOVACS MD Cbc With Automated Diff (04/12/17 06:41) Comprehensive Metabolic Panel (04/12/17 06:41) Troponin I (04/12/17 06:41) Ekg Tracing (04/12/17 06:41) Chest 1 View, Ap/Pa Only (04/12/17 06:41) Ua Culture If Indicated (04/12/17 07:05) Urine Culture (04/12/17 06:53) Vital Signs/I&O Vital Sign - Last 12Hours 04/12/17 06:20 Temp 97.8 Pulse 57 Resp 18 B/P (MAP) 156/86 Pulse Ox 98 Blood Pressure Mean: 109 Departure Communication Progress Notes The laboratory shows nothing of import. The troponin is negative. The patient remains in sinus rhythm. She takes metoprolol but at a minimum dose and this will be increased Impression Impression: Primary Impression: paroxysmal atrial fibrillation with RVR Disposition: 01 HOME, SELF-CARE Condition: Improved Departure-Patient Inst. Decision time for Depature: 08:12 Referrals: LB BENITEZ MD (PCP/Family) Primary Care Physician Patient Instructions: Paroxysmal Supraventricular Tachycardia (DC) Add. Discharge Instructions: All discharge instructions reviewed with patient and/or family. Voiced understanding. Increase your metoprolol to twice daily beginning today Make an appointment for with your provider for next week to discuss blood thinners If recurrence return to ER ALISSON KOVACS MD April 12, 2017 07:26
--- NOTE | 2017-04-12 09:50 | Diagnostic Imaging Report ---
INDICATION: Chest pain. COMPARISON: 01/08/2017. FINDINGS: Right basilar ill-defined reticulonodular opacities are new since prior examination. No pleural effusion or pneumothorax. Stable borderline cardiomegaly. Atherosclerotic aorta is unchanged. Normal pulmonary vasculature. IMPRESSION: 1. New ill-defined reticulonodular opacities in the right lung base are likely due to an infectious bronchiolitis or aspiration bronchiolitis. Dictated by: Dictated on workstation # [id number]
[2017-04-12 10:15] VITALS: BP 138/75
== END 2017-04-12 10:15 | disposition home or self-care (01) ==
LOC: EDUNIT# 06:19 → ER 06:20
DX: I48.0 Paroxysmal atrial fibrillation (principal); E03.9 Hypothyroidism, unspecified; F17.210 Nicotine dependence, cigarettes, uncomplicated; Z79.899 Other long term (current) drug therapy; Z79.82 Long term (current) use of aspirin
CPT/HCPCS: 36415; 71010; 80053; 81000; 84484; 85025; 87077; 87088; 87186; 93005

== ENCOUNTER → 2017-04-23 | Outpatient (CLI) | payer MEDICARE, OTHER ==
--- NOTE | 2017-04-23 14:28 | Diagnostic Imaging Report ---
EXAMINATION: PA and lateral views of the chest. INDICATION: Shortness of breath. FINDINGS: The lungs are hyperinflated. The previously seen interstitial thickening in the right lung base has resolved with remaining linear atelectasis. There is minimal atelectasis and scarring suggested in the left lung base. Tiny bilateral effusions are noted. The heart size is at the upper limits of normal. No pneumothorax. IMPRESSION: COPD. Tiny pleural effusions with bibasilar atelectasis. Dictated by: Dictated on workstation # [id number]
== END ==
LOC: RAD 09:43
PROVIDERS: ATTEND Nurse Practitioner
DX: J44.0 Chronic obstructive pulmonary disease with (acute) lower respiratory infection (principal); J18.9 Pneumonia, unspecified organism
CPT/HCPCS: 71020

== ENCOUNTER → 2017-04-30 | Outpatient (CLI) | payer MEDICARE, OTHER ==
--- NOTE | 2017-04-30 12:55 | Diagnostic Imaging Report ---
INDICATION: Lower respiratory infection. PA and lateral chest. Heart size and pulmonary vascularity are normal. Lungs are clear. There are no effusions or pneumothoraces. IMPRESSION: Negative chest. Dictated by: Dictated on workstation # [id number]
== END ==
LOC: RAD 12:24
PROVIDERS: ATTEND Nurse Practitioner
DX: J18.9 Pneumonia, unspecified organism (principal)
CPT/HCPCS: 71020

== ENCOUNTER 2018-01-19 07:29 | Inpatient (IN) | payer MEDICARE, OTHER ==
[~2018-01-19] VITALS: Ht 165.1 cm; Wt 46.0 kg
[2018-01-19] VITALS (15 sets, daily range): BP systolic 106–164; BP diastolic 72–91
[~2018-01-19 07:29] MED LIST changes: -METO-272 PO; +METO-370 PO
--- OUTSIDE RECORDS SUMMARY | 2018-01-19 07:35 | XMS REPORT | Continuity of Care Document ---
Author Author [facility] Organization [facility] Address Unknown Phone Unavailable Allergies Active Description Code Type Severity Reaction Onset Reported/Identified Relationship to Patient Clinical Status Yes No Known Drug Allergies [id number] Drug Allergy Unknown N/A 05/10/2009 Medications There is no data. 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 08/29/2016 LB BENITEZ MD Ot I10 ESSENTIAL (PRIMARY) HYPERTENSION 08/29/2016 LB BENITEZ MD Ot I47.1 SUPRAVENTRICULAR TACHYCARDIA 08/29/2016 LB BENITEZ MD Ot R07.89 OTHER CHEST PAIN 08/29/2016 LB BENITEZ MD Ot R63.6 UNDERWEIGHT 08/29/2016 LB BENITEZ MD Ot R94.31 ABNORMAL ELECTROCARDIOGRAM [ECG] [EKG] 08/29/2016 LB BENITEZ MD Ot Z23 ENCOUNTER FOR IMMUNIZATION 08/29/2016 LB BENITEZ MD Ot Z68.1 BODY MASS INDEX (BMI) 19 OR LESS, ADULT 08/29/2016 LB BENITEZ MD Ot Z91.14 PATIENT'S OTHER NONCOMPLIANCE WITH MEDIC 09/25/2016 JESUS SMALL FACC, KOBY CUNHAP CCDS Ot I47.1 SUPRAVENTRICULAR TACHYCARDIA 09/25/2016 JESUS SMALL FACC, ALI GUERLINEP CCDS Ot R07.89 OTHER CHEST PAIN 09/25/2016 JESUS SMALL FACC, KOBY FACP CCDS Ot Z72.0 TOBACCO USE 10/15/2016 LB BENITEZ MD Ot E03.9 HYPOTHYROIDISM, UNSPECIFIED 10/15/2016 LB BENITEZ MD Ot F17.210 NICOTINE DEPENDENCE, CIGARETTES, UNCOMPL 10/15/2016 LB BENITEZ MD Ot 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 10/15/2016 LB BENITEZ MD Ot I10 ESSENTIAL (PRIMARY) HYPERTENSION 10/15/2016 LB BENITEZ MD Ot I47.1 SUPRAVENTRICULAR TACHYCARDIA 10/15/2016 LB BENITEZ MD Ot R07.89 OTHER CHEST PAIN 10/15/2016 LB BENITEZ MD Ot R63.6 UNDERWEIGHT 10/15/2016 LB BENITEZ MD Ot R94.31 ABNORMAL ELECTROCARDIOGRAM [ECG] [EKG] 10/15/2016 LB BENITEZ MD Ot Z23 ENCOUNTER FOR IMMUNIZATION 10/15/2016 LB BENITEZ MD Ot Z68.1 BODY MASS INDEX (BMI) 19 OR LESS, ADULT 10/15/2016 LB BENITEZ MD Ot Z91.14 PATIENT'S OTHER NONCOMPLIANCE WITH MEDIC 10/17/2016 JESUS SMALL FACC, KOBY FACP CCDS Ot I47.1 SUPRAVENTRICULAR TACHYCARDIA 10/17/2016 JESUS SMALL FACC, KOBY FACP CCDS Ot R07.89 OTHER CHEST PAIN 10/17/2016 JESUS SMALL FACC, ALI FACP CCDS Ot Z72.0 TOBACCO USE 11/12/2016 JESUS SMALL FACC ALI FACP CCDS Ot I47.1 SUPRAVENTRICULAR TACHYCARDIA 11/12/2016 JESUS SMALL FACC, ALI FACP CCDS Ot R07.89 OTHER CHEST PAIN 11/12/2016 JESUS SMALL FACC, ALI FACP CCDS Ot Z72.0 TOBACCO USE 01/08/2017 JESUS SMALL FACC, ALI FACP CCDS Ot I47.1 SUPRAVENTRICULAR TACHYCARDIA 01/08/2017 JESUS SMALL FACC, ALI FACP CCDS Ot R07.89 OTHER CHEST PAIN 01/08/2017 JESUS SMALL FACC, ALI FACP CCDS Ot Z72.0 TOBACCO USE 01/08/2017 WES NICHOLAS DO Ot F17.210 NICOTINE DEPENDENCE, CIGARETTES, UNCOMPL 01/08/2017 WES NICHOLAS DO Ot I10 ESSENTIAL (PRIMARY) HYPERTENSION 01/08/2017 YU OSCARWES Ot I70.91 GENERALIZED ATHEROSCLEROSIS 01/08/2017 YU OSCAR WES Leann Ot J44.9 CHRONIC OBSTRUCTIVE PULMONARY DISEASE, U 01/08/2017 WES NICHOLAS DO Leann Cook N39.0 URINARY TRACT INFECTION, SITE NOT SPECIF 01/08/2017 WES NICHOLAS DO Leann Ot S70.02XA CONTUSION OF LEFT HIP, INITIAL ENCOUNTER 01/08/2017 YU OSCAR WES Leann Cook S79.912A UNSPECIFIED INJURY OF LEFT HIP, INITIAL 01/08/2017 YU OSCAR WES Leann Ot W01.0XXA FALL SAME LEV FROM SLIP/TRIP W/O STRIKE 01/08/2017 YU OSCARWES Ot Y92.013 BEDROOM OF SINGLE-FAMILY (PRIVATE) HOUSE 01/08/2017 YU OSCAR WES K Ot Y99.8 OTHER EXTERNAL CAUSE STATUS 01/08/2017 YU DOWES Ot Z79.82 CORRECTION (CURRENT) USE OF ASPIRIN 01/08/2017 WES NICHOLAS DO Ot 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 01/08/2017 JESUS SMALL FAC, ALI FACP CCDS Ot I47.1 SUPRAVENTRICULAR TACHYCARDIA 01/08/2017 JESUS SMALL FACC, ALI FACP CCDS Ot R07.89 OTHER CHEST PAIN 01/08/2017 JESUS SMALL FAC, ALI FACP CCDS Ot Z72.0 TOBACCO USE 04/12/2017 ALISSON KOVACS MD Ot E03.9 HYPOTHYROIDISM, UNSPECIFIED 04/12/2017 ALISSON KOVACS MD Ot F17.210 NICOTINE DEPENDENCE, CIGARETTES, UNCOMPL 04/12/2017 ALISSON KOVACS MD Ot I48.0 PAROXYSMAL ATRIAL FIBRILLATION 04/12/2017 ALISSON KOVACS MD Ot R07.9 CHEST PAIN, UNSPECIFIED 04/12/2017 ALISSON KOVACS MD Ot Z79.82 CORRECTION (CURRENT) USE OF ASPIRIN 04/12/2017 ALISSON KOVACS MD Ot Z79.899 OTHER CORRECTION (CURRENT) DRUG THERAPY 04/15/2017 ALISSON KOVACS MD Ot E03.9 HYPOTHYROIDISM, UNSPECIFIED 04/15/2017 ALISSON KOVACS MD Ot F17.210 NICOTINE DEPENDENCE, CIGARETTES, UNCOMPL 04/15/2017 ALISSON KOVACS MD Ot I48.0 PAROXYSMAL ATRIAL FIBRILLATION 04/15/2017 ALISSON KOVACS MD Ot R07.9 CHEST PAIN, UNSPECIFIED 04/15/2017 ALISSON KOVACS MD Ot 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 04/15/2017 ALISSON KOVACS MD Ot Z79.899 OTHER CORRECTION (CURRENT) DRUG THERAPY 04/16/2017 ALISSON KOVACS MD Ot E03.9 HYPOTHYROIDISM, UNSPECIFIED 04/16/2017 ALISSON KOVACS MD Ot F17.210 NICOTINE DEPENDENCE, CIGARETTES, UNCOMPL 04/16/2017 ALISSON KOVACS MD Ot I48.0 PAROXYSMAL ATRIAL FIBRILLATION 04/16/2017 ALISSON KOVACS MD Ot R07.9 CHEST PAIN, UNSPECIFIED 04/16/2017 ALISSON KOVACS MD Ot Z79.82 CORRECTION (CURRENT) USE OF ASPIRIN 04/16/2017 ALISSON KOVACS MD Ot Z79.899 OTHER CORRECTION (CURRENT) DRUG THERAPY 04/25/2017 ROSALINO [employer]BER Ot J18.9 PNEUMONIA, UNSPECIFIED ORGANISM 04/25/2017 ROASLINO [employer] Ot J44.0 CHRONIC OBSTRUCTIVE PULMON DISEASE [facility] 05/02/2017 ROSALINO [employer] Ot J18.9 PNEUMONIA, UNSPECIFIED ORGANISM 05/22/2017 ROSALINO [employer] Ot J18.9 PNEUMONIA, UNSPECIFIED ORGANISM 05/22/2017 ROSALINO [employer]BER Ot J44.0 CHRONIC OBSTRUCTIVE PULMON DISEASE [facility] 05/26/2017 ROSALINO [employer] Ot J18.9 PNEUMONIA, UNSPECIFIED ORGANISM 06/23/2017 KIRSTY [employer]BER Ot J18.9 PNEUMONIA, UNSPECIFIED ORGANISM 06/23/2017 ROSALINO [employer] Ot J18.9 PNEUMONIA, UNSPECIFIED ORGANISM 06/23/2017 ROSALINO [employer]BER Ot J44.0 CHRONIC OBSTRUCTIVE PULMON DISEASE W [facility] 06/23/2017 ROSALINO [employer] Ot J18.9 PNEUMONIA, UNSPECIFIED ORGANISM Procedures There is no data. Results Test Result Range Complete blood count (CBC) with automated white blood cell (WBC) differential - 08/27/16 23:45 Blood leukocytes automated count (number/volume) 4.9 10*3/uL 4.3-11.0 Blood erythrocytes automated count (number/volume) 3.97 10*6/uL 4.35-5.85 Venous blood hemoglobin measurement (mass/volume) 12.9 g/dL 11.5-16.0 Blood hematocrit (volume fraction) 39 % 35-52 Automated erythrocyte mean corpuscular volume 98 [foz_us] 80-99 Automated erythrocyte mean corpuscular hemoglobin (mass per erythrocyte) 33 pg 25-34 Automated erythrocyte mean corpuscular hemoglobin concentration measurement ( mass/volume) 33 g/dL 32-36 Automated erythrocyte distribution width ratio 12.9 % 10.0-14.5 Automated blood platelet count (count/volume) 204 10*3/uL 130-400 Automated blood platelet mean volume measurement 10.2 [foz_us] 7.4-10.4 Automated blood neutrophils/100 leukocytes 54 % 42-75 Automated blood lymphocytes/100 leukocytes 30 % 12-44 Blood monocytes/100 leukocytes 9 % 0-12 Automated blood eosinophils/100 leukocytes 8 % 0-10 Automated blood basophils/100 leukocytes 1 % 0-10 Blood neutrophils automated count (number/volume) 2.6 10*3 1.8-7.8 Blood lymphocytes automated count (number/volume) 1.5 10*3 1.0-4.0 Blood monocytes automated count (number/volume) 0.4 10*3 0.0-1.0 Automated eosinophil count 0.4 10*3/uL 0.0-0.3 Automated blood basophil count (count/volume) 0.0 10*3/uL 0.0-0.1 Comprehensive metabolic panel - 08/27/16 23:45 Serum or plasma sodium measurement (moles/volume) 138 mmol/L 135-145 Serum or plasma potassium measurement (moles/volume) 4.3 mmol/L 3.6-5.0 Serum or plasma chloride measurement (moles/volume) 104 mmol/L 98-107 Carbon dioxide 19 mmol/L 21-32 Serum or plasma anion gap determination (moles/volume) 15 mmol/L 5-14 Serum or plasma urea nitrogen measurement (mass/volume) 23 mg/dL 7-18 Serum or plasma creatinine measurement (mass/volume) 0.86 mg/dL 0.60-1.30 Serum or plasma urea nitrogen/creatinine mass ratio 27 NRG Serum or plasma creatinine measurement with calculation of estimated glomerular filtration rate > NRG Serum or plasma glucose measurement (mass/volume) 127 mg/dL 70-105 Serum or plasma calcium measurement (mass/volume) 9.4 mg/dL 8.5-10.1 Serum or plasma total bilirubin measurement (mass/volume) 0.4 mg/dL 0.1-1.0 Serum or plasma alkaline phosphatase measurement (enzymatic activity/volume) 74 U/L 40-136 Serum or plasma aspartate aminotransferase measurement (enzymatic activity/ volume) 61 U/L 5-34 Serum or plasma alanine aminotransferase measurement (enzymatic activity/volume ) 42 U/L 0-55 Serum or plasma protein measurement (mass/volume) 6.8 g/dL 6.4-8.2 Serum or plasma albumin measurement (mass/volume) 4.1 g/dL 3.2-4.5 Magnesium - 08/27/16 23:45 Magnesium 2.3 mg/dL 1.8-2.4 Fibrin D-dimer FEU measurement in platelet poor plasma (mass/volume) - 23:45 Fibrin D-dimer FEU measurement in platelet poor plasma (mass/volume) 0.39 ug/mL 0.00-0.49 Serum or plasma lithium measurement (moles/volume) - 08/27/16 23:45 BNP level 166.4 pg/mL <100.0 Serum or plasma troponin i.cardiac measurement (mass/volume) - 08/27/16 23:45 Serum or plasma troponin i.cardiac measurement (mass/volume) < ng/ mL <0.30 THYROID STIMULATING HORMONE - 08/27/16 23:45 THYROID STIMULATING HORMONE 42.55 u[iU]/mL 0.35-4.94 Complete urinalysis with reflex to culture - 08/27/16 23:59 Urine color determination YELLOW NRG Urine clarity determination CLEAR NRG Urine pH measurement by test strip 8 5-9 Specific gravity of urine by test strip 1.015 1.016- 1.022 Urine protein assay by test strip, semi-quantitative NEGATIVE NEGATIVE Urine glucose detection by automated test strip NEGATIVE NEGATIVE Erythrocytes detection in urine sediment by light microscopy 1+ NEGATIVE Urine ketones detection by automated test strip 1+ NEGATIVE Urine nitrite detection by test strip POSITIVE NEGATIVE Urine total bilirubin detection by test strip NEGATIVE NEGATIVE Urine urobilinogen measurement by automated test strip (mass/volume) NORMAL NORMAL Urine leukocyte esterase detection by dipstick 1+ NEGATIVE Automated urine sediment erythrocyte count by microscopy (number/high power field) [HPF] NRG Automated urine sediment leukocyte count by microscopy (number/high power field ) [HPF] NRG Bacteria detection in urine sediment by light microscopy LARGE NRG Crystals detection in urine sediment by light microscopy NONE NRG Casts detection in urine sediment by light microscopy NONE NRG Mucus detection in urine sediment by light microscopy NEGATIVE NRG Complete urinalysis with reflex to culture YES NRG Bacterial urine culture - 08/27/16 23:59 Bacterial urine culture [id number] NRG COLONY COUNT >100,000/ML NRG FTX;REPORTABLE SENSITIVITY REPORTED AT 1744, 08-28-16 NRG URINE CULTURE RESULTS PLUS NRG Bacterial susceptibility panel - 08/27/16 23:59 Gentamicin susceptibility test by minimum inhibitory concentration < = NRG Trimethoprim/sulfamethoxazole susceptibility test by minimum inhibitoryconcentration <= NRG Ampicillin susceptibility test by minimum inhibitory concentration R NRG Tobramycin susceptibility test by minimum inhibitory concentration < = NRG Cefazolin susceptibility test by minimum inhibitory concentration < = NRG Ceftriaxone susceptibility test by minimum inhibitory concentration <= NRG Ampicillin/sulbactam susceptibility test by minimum inhibitory concentration 4 NRG Piperacillin/tazobactam susceptibility test by minimum inhibitory concentration <= NRG Ciprofloxacin susceptibility test by minimum inhibitory concentration <= NRG Meropenem susceptibility test by minimum inhibitory concentration < = NRG Nitrofurantoin susceptibility test by minimum inhibitory concentration <= NRG Aztreonam susceptibility test by minimum inhibitory concentration < = NRG Extended spectrum beta lactamase (ESBL) producing bacteria susceptibility test by minimum inhibitory concentration - NRG Serum or plasma thyroxine (T4) free measurement (mass/volume) - 08/28/16 10:05 Serum or plasma thyroxine (T4) free measurement (mass/volume) 0.81 ng/dL 0.70-1.48 Complete blood count (CBC) with automated white blood cell (WBC) differential - 08/29/16 05:38 Blood leukocytes automated count (number/volume) 4.4 10*3/uL 4.3-11.0 Blood erythrocytes automated count (number/volume) 3.63 10*6/uL 4.35-5.85 Venous blood hemoglobin measurement (mass/volume) 11.8 g/dL 11.5-16.0 Blood hematocrit (volume fraction) 36 % 35-52 Automated erythrocyte mean corpuscular volume 100 [foz_us] 80-99 Automated erythrocyte mean corpuscular hemoglobin (mass per erythrocyte) 33 pg 25-34 Automated erythrocyte mean corpuscular hemoglobin concentration measurement ( mass/volume) 33 g/dL 32-36 Automated erythrocyte distribution width ratio 13.1 % 10.0-14.5 Automated blood platelet count (count/volume) 196 10*3/uL 130-400 Automated blood platelet mean volume measurement 9.6 [foz_us] 7.4-10.4 Automated blood neutrophils/100 leukocytes 60 % 42-75 Automated blood lymphocytes/100 leukocytes 23 % 12-44 Blood monocytes/100 leukocytes 8 % 0-12 Automated blood eosinophils/100 leukocytes 8 % 0-10 Automated blood basophils/100 leukocytes 1 % 0-10 Blood neutrophils automated count (number/volume) 2.7 10*3 1.8-7.8 Blood lymphocytes automated count (number/volume) 1.0 10*3 1.0-4.0 Blood monocytes automated count (number/volume) 0.4 10*3 0.0-1.0 Automated eosinophil count 0.4 10*3/uL 0.0-0.3 Automated blood basophil count (count/volume) 0.0 10*3/uL 0.0-0.1 Whole blood basic metabolic panel - 08/29/16 05:38 Serum or plasma sodium measurement (moles/volume) 142 mmol/L 135-145 Serum or plasma potassium measurement (moles/volume) 4.0 mmol/L 3.6-5.0 Serum or plasma chloride measurement (moles/volume) 113 mmol/L 98-107 Carbon dioxide 23 mmol/L 21-32 Serum or plasma anion gap determination (moles/volume) 6 mmol/L 5-14 Serum or plasma urea nitrogen measurement (mass/volume) 13 mg/dL 7-18 Serum or plasma creatinine measurement (mass/volume) 0.68 mg/dL 0.60-1.30 Serum or plasma urea nitrogen/creatinine mass ratio 19 NRG Serum or plasma creatinine measurement with calculation of estimated glomerular filtration rate > NRG Serum or plasma glucose measurement (mass/volume) 92 mg/dL 70-105 Serum or plasma calcium measurement (mass/volume) 8.1 mg/dL 8.5-10.1 Magnesium - 08/29/16 05:38 Magnesium 2.2 mg/dL 1.8-2.4 Complete blood count (CBC) with automated white blood cell (WBC) differential - 01/08/17 13:19 Blood leukocytes automated count (number/volume) 8.3 10*3/uL 4.3-11.0 Blood erythrocytes automated count (number/volume) 3.67 10*6/uL 4.35-5.85 Venous blood hemoglobin measurement (mass/volume) 11.7 g/dL 11.5-16.0 Blood hematocrit (volume fraction) 35 % 35-52 Automated erythrocyte mean corpuscular volume 95 [foz_us] 80-99 Automated erythrocyte mean corpuscular hemoglobin (mass per erythrocyte) 32 pg 25-34 Automated erythrocyte mean corpuscular hemoglobin concentration measurement ( mass/volume) 34 g/dL 32-36 Automated erythrocyte distribution width ratio 13.3 % 10.0-14.5 Automated blood platelet count (count/volume) 166 10*3/uL 130-400 Automated blood platelet mean volume measurement 10.3 [foz_us] 7.4-10.4 Automated blood neutrophils/100 leukocytes 88 % 42-75 Automated blood lymphocytes/100 leukocytes 6 % 12-44 Blood monocytes/100 leukocytes 6 % 0-12 Automated blood eosinophils/100 leukocytes 0 % 0-10 Automated blood basophils/100 leukocytes 0 % 0-10 Blood neutrophils automated count (number/volume) 7.3 10*3 1.8-7.8 Blood lymphocytes automated count (number/volume) 0.5 10*3 1.0-4.0 Blood monocytes automated count (number/volume) 0.5 10*3 0.0-1.0 Automated eosinophil count 0.0 10*3/uL 0.0-0.3 Automated blood basophil count (count/volume) 0.0 10*3/uL 0.0-0.1 Comprehensive metabolic panel - 01/08/17 13:19 Serum or plasma sodium measurement (moles/volume) 134 mmol/L 135-145 Serum or plasma potassium measurement (moles/volume) 4.2 mmol/L 3.6-5.0 Serum or plasma chloride measurement (moles/volume) 98 mmol/L 98-107 Carbon dioxide 24 mmol/L 21-32 Serum or plasma anion gap determination (moles/volume) 12 mmol/L 5-14 Serum or plasma urea nitrogen measurement (mass/volume) 23 mg/dL 7-18 Serum or plasma creatinine measurement (mass/volume) 0.88 mg/dL 0.60-1.30 Serum or plasma urea nitrogen/creatinine mass ratio 26 NRG Serum or plasma creatinine measurement with calculation of estimated glomerular filtration rate > NRG Serum or plasma glucose measurement (mass/volume) 118 mg/dL 70-105 Serum or plasma calcium measurement (mass/volume) 8.3 mg/dL 8.5-10.1 Serum or plasma total bilirubin measurement (mass/volume) 0.4 mg/dL 0.1-1.0 Serum or plasma alkaline phosphatase measurement (enzymatic activity/volume) 55 U/L 40-136 Serum or plasma aspartate aminotransferase measurement (enzymatic activity/ volume) 34 U/L 5-34 Serum or plasma alanine aminotransferase measurement (enzymatic activity/volume ) 19 U/L 0-55 Serum or plasma protein measurement (mass/volume) 6.1 g/dL 6.4-8.2 Serum or plasma albumin measurement (mass/volume) 3.7 g/dL 3.2-4.5 PT panel in platelet poor plasma by coagulation assay - 01/08/17 13:19 Prothrombin time (PT) in platelet poor plasma by coagulation assay 13.4 s 12.2-14.7 INR in platelet poor plasma or blood by coagulation assay 1.1 0.8-1.4 Activated partial thromboplastin time (aPTT) in platelet poor plasma bycoagulation assay - 01/08/17 13:19 Activated partial thromboplastin time (aPTT) in platelet poor plasma bycoagulation assay 29 s 24-35 Blood manual differential performed detection - 01/08/17 13:19 Blood monocytes/100 leukocytes 4 % NR Manual blood segmented neutrophils/100 leukocytes 79 % NR Blood band neutrophils/100 leukocytes 9 % NR Manual blood lymphocytes/100 leukocytes 8 % NR Manual eosinophils/100 leukocytes in nose 0 % NR Manual blood basophils/100 leukocytes 0 % [facility] Blood poikilocytosis detection by light microscopy SLIGHT [facility] Bacterial blood culture - 01/08/17 13:19 Bacterial blood culture NG [facility] Influenza virus A and B antigen detection - 01/08/17 13:23 FLU RESULT NEGATIVE FOR INFLUENZA A AND B ANTIGENS BY IA [facility] Bacterial blood culture - 01/08/17 13:49 Bacterial blood culture NG NRG Complete urinalysis with reflex to culture - 01/08/17 14:17 Urine color determination YELLOW NRG Urine clarity determination CLEAR NRG Urine pH measurement by test strip 5 5-9 Specific gravity of urine by test strip 1.020 1.016- 1.022 Urine protein assay by test strip, semi-quantitative 1+ NEGATIVE Urine glucose detection by automated test strip NEGATIVE NEGATIVE Erythrocytes detection in urine sediment by light microscopy 4+ NEGATIVE Urine ketones detection by automated test strip NEGATIVE NEGATIVE Urine nitrite detection by test strip NEGATIVE NEGATIVE Urine total bilirubin detection by test strip NEGATIVE NEGATIVE Urine urobilinogen measurement by automated test strip (mass/volume) NORMAL NORMAL Urine leukocyte esterase detection by dipstick 3+ NEGATIVE Automated urine sediment erythrocyte count by microscopy (number/high power field) [HPF] NRG Automated urine sediment leukocyte count by microscopy (number/high power field ) [HPF] NRG Bacteria detection in urine sediment by light microscopy LARGE NRG Crystals detection in urine sediment by light microscopy NONE NRG Casts detection in urine sediment by light microscopy PRESENT NRG Mucus detection in urine sediment by light microscopy NEGATIVE NRG Complete urinalysis with reflex to culture YES NRG Hyaline casts detection in urine sediment by light microscopy 2-5 NRG Bacterial urine culture - 01/08/17 14:17 Bacterial urine culture [id number] NRG COLONY COUNT >100,000/ML NRG FTX;REPORTABLE SENSITIVITY REPORTED AT 1704, 01-09-17 NR URINE CULTURE RESULTS PLUS [facility] Bacterial susceptibility panel - 01/08/17 14:17 Gentamicin susceptibility test by minimum inhibitory concentration < = NRG Trimethoprim/sulfamethoxazole susceptibility test by minimum inhibitoryconcentration <= NRG Ampicillin susceptibility test by minimum inhibitory concentration 4 NRG Tobramycin susceptibility test by minimum inhibitory concentration < = NRG Cefazolin susceptibility test by minimum inhibitory concentration < = NRG Ceftriaxone susceptibility test by minimum inhibitory concentration <= NRG Ampicillin/sulbactam susceptibility test by minimum inhibitory concentration 4 NRG Piperacillin/tazobactam susceptibility test by minimum inhibitory concentration <= NRG Ciprofloxacin susceptibility test by minimum inhibitory concentration <= NRG Meropenem susceptibility test by minimum inhibitory concentration < = NRG Nitrofurantoin susceptibility test by minimum inhibitory concentration <= NRG Aztreonam susceptibility test by minimum inhibitory concentration < = NRG Extended spectrum beta lactamase (ESBL) producing bacteria susceptibility test by minimum inhibitory concentration - NRG Complete blood count (CBC) with automated white blood cell (WBC) differential - 04/12/17 06:20 Blood leukocytes automated count (number/volume) 5.5 10*3/uL 4.3-11.0 Blood erythrocytes automated count (number/volume) 4.02 10*6/uL 4.35-5.85 Venous blood hemoglobin measurement (mass/volume) 12.8 g/dL 11.5-16.0 Blood hematocrit (volume fraction) 39 % 35-52 Automated erythrocyte mean corpuscular volume 97 [foz_us] 80-99 Automated erythrocyte mean corpuscular hemoglobin (mass per erythrocyte) 32 pg 25-34 Automated erythrocyte mean corpuscular hemoglobin concentration measurement ( mass/volume) 33 g/dL 32-36 Automated erythrocyte distribution width ratio 13.0 % 10.0-14.5 Automated blood platelet count (count/volume) 269 10*3/uL 130-400 Automated blood platelet mean volume measurement 10.0 [foz_us] 7.4-10.4 Automated blood neutrophils/100 leukocytes 65 % 42-75 Automated blood lymphocytes/100 leukocytes 19 % 12-44 Blood monocytes/100 leukocytes 8 % 0-12 Automated blood eosinophils/100 leukocytes 8 % 0-10 Automated blood basophils/100 leukocytes 1 % 0-10 Blood neutrophils automated count (number/volume) 3.6 10*3 1.8-7.8 Blood lymphocytes automated count (number/volume) 1.1 10*3 1.0-4.0 Blood monocytes automated count (number/volume) 0.4 10*3 0.0-1.0 Automated eosinophil count 0.4 10*3/uL 0.0-0.3 Automated blood basophil count (count/volume) 0.0 10*3/uL 0.0-0.1 Comprehensive metabolic panel - 04/12/17 06:20 Serum or plasma sodium measurement (moles/volume) 140 mmol/L 135-145 Serum or plasma potassium measurement (moles/volume) 3.9 mmol/L 3.6-5.0 Serum or plasma chloride measurement (moles/volume) 105 mmol/L 98-107 Carbon dioxide 24 mmol/L 21-32 Serum or plasma anion gap determination (moles/volume) 11 mmol/L 5-14 Serum or plasma urea nitrogen measurement (mass/volume) 15 mg/dL 7-18 Serum or plasma creatinine measurement (mass/volume) 0.74 mg/dL 0.60-1.30 Serum or plasma urea nitrogen/creatinine mass ratio 20 NRG Serum or plasma creatinine measurement with calculation of estimated glomerular filtration rate > NRG Serum or plasma glucose measurement (mass/volume) 99 mg/dL 70-105 Serum or plasma calcium measurement (mass/volume) 9.2 mg/dL 8.5-10.1 Serum or plasma total bilirubin measurement (mass/volume) 0.2 mg/dL 0.1-1.0 Serum or plasma alkaline phosphatase measurement (enzymatic activity/volume) 62 U/L 40-136 Serum or plasma aspartate aminotransferase measurement (enzymatic activity/ volume) 28 U/L 5-34 Serum or plasma alanine aminotransferase measurement (enzymatic activity/volume ) 19 U/L 0-55 Serum or plasma protein measurement (mass/volume) 6.7 g/dL 6.4-8.2 Serum or plasma albumin measurement (mass/volume) 3.9 g/dL 3.2-4.5 Serum or plasma troponin i.cardiac measurement (mass/volume) - 04/12/17 06:20 Serum or plasma troponin i.cardiac measurement (mass/volume) < ng/ mL <0.30 Complete urinalysis with reflex to culture - 04/12/17 06:53 Urine color determination YELLOW NRG Urine clarity determination SLIGHTLY CLOUDY NRG Urine pH measurement by test strip 7 5-9 Specific gravity of urine by test strip 1.010 1.016- 1.022 Urine protein assay by test strip, semi-quantitative NEGATIVE NEGATIVE Urine glucose detection by automated test strip NEGATIVE NEGATIVE Erythrocytes detection in urine sediment by light microscopy NEGATIVE NEGATIVE Urine ketones detection by automated test strip NEGATIVE NEGATIVE Urine nitrite detection by test strip NEGATIVE NEGATIVE Urine total bilirubin detection by test strip NEGATIVE NEGATIVE Urine urobilinogen measurement by automated test strip (mass/volume) NORMAL NORMAL Urine leukocyte esterase detection by dipstick 1+ NEGATIVE Automated urine sediment erythrocyte count by microscopy (number/high power field) NONE NRG Automated urine sediment leukocyte count by microscopy (number/high power field ) [HPF] NRG Bacteria detection in urine sediment by light microscopy MODERATE NRG Squamous epithelial cells detection in urine sediment by light microscopy RARE NRG Crystals detection in urine sediment by light microscopy NONE NRG Casts detection in urine sediment by light microscopy PRESENT NRG Mucus detection in urine sediment by light microscopy NEGATIVE NRG Complete urinalysis with reflex to culture YES NRG Hyaline casts detection in urine sediment by light microscopy RARE NRG Bacterial urine culture - 04/12/17 06:53 Bacterial urine culture [id number] NRG COLONY COUNT >100,000/ML NRG FTX;REPORTABLE SENSITIVITY REPORTED 04/14/17 9:45 NRG FREE TEXT ENTRY 2 PLUS, NRG FREE TEXT ENTRY 3 MIXED GRAM POSITIVES <10,000/ML NRG Bacterial susceptibility panel - 04/12/17 06:53 Gentamicin susceptibility test by minimum inhibitory concentration < = NRG Trimethoprim/sulfamethoxazole susceptibility test by minimum inhibitoryconcentration <= NRG Ampicillin susceptibility test by minimum inhibitory concentration R NRG Tobramycin susceptibility test by minimum inhibitory concentration < = NRG Cefazolin susceptibility test by minimum inhibitory concentration < = NRG Ceftriaxone susceptibility test by minimum inhibitory concentration <= NRG Ampicillin/sulbactam susceptibility test by minimum inhibitory concentration 4 NRG Piperacillin/tazobactam susceptibility test by minimum inhibitory concentration <= NRG Ciprofloxacin susceptibility test by minimum inhibitory concentration <= NRG Meropenem susceptibility test by minimum inhibitory concentration < = NRG Nitrofurantoin susceptibility test by minimum inhibitory concentration 32 NRG Aztreonam susceptibility test by minimum inhibitory concentration < = NRG Extended spectrum beta lactamase (ESBL) producing bacteria susceptibility test by minimum inhibitory concentration - NRG Encounters ACCT No. Visit Date/Time Discharge Status Pt. Type Provider Facility Loc./Unit Complaint [id number] 04/30/2017 12:24:00 04/30/2017 23:59:59 CLS Outpatient ROSALINO SEPULVEDA APRN [facility] RAD PNEUMONIA [id number] 04/23/2017 09:43:00 04/23/2017 23:59:59 CLS Outpatient ROSALINO SEPULVEDA APRN [facility] RAD PNEUMONIA [id number] 04/12/2017 06:20:00 04/12/2017 10:15:00 DIS Emergency ALISSON KOVACS MD [facility] ER CP [id number] 01/08/2017 12:26:00 01/08/2017 16:30:00 DIS Emergency WES NICHOLAS DO [facility] ER FALL/LEFT HIP PAIN [id number] 09/24/2016 11:32:00 09/24/2016 23:59:59 CLS Outpatient JESUS MD FACC, KOBY SKINNER CCDS [facility] CARD AVNRT, TOBACCO USER,CHEST DISCOMFORT [id number] 08/27/2016 23:48:00 08/29/2016 10:31:00 DIS Inpatient LB BENITEZ MD [facility] 4TH SVT-UTI-HTN [id number] 10/10/2013 15:39:00 10/10/2013 16:36:00 DIS Emergency TORRIE ALCALA APRN [facility] ER LEFT HAND PAIN [id number] 08/28/2016 01:47:00 Document Registration
[2018-01-19 07:56] LABS: BASOPHILS % (AUTO) 1 % (0-10); EOSINOPHILS # (AUTO) 0.7 10^3/uL (0.0-0.3); EOSINOPHILS % (AUTO) 12 % (0-10); HEMATOCRIT 41 % (35-52); HEMOGLOBIN 13.7 G/DL (11.5-16.0); LYMPHOCYTES # (AUTO) 1.1 X 10^3 (1.0-4.0); LYMPHOCYTES % (AUTO) 19 % (12-44); MEAN CORPUSCULAR HEMOGLOBIN 33 PG (25-34); MEAN CORPUSCULAR HGB CONC 34 G/DL (32-36); MEAN CORPUSCULAR VOLUME 97 FL (80-99); MEAN PLATELET VOLUME 10.4 FL (7.4-10.4); MONOCYTES # (AUTO) 0.4 X 10^3 (0.0-1.0); MONOCYTES % (AUTO) 8 % (0-12); NEUTROPHILS # (AUTO) 3.5 X 10^3 (1.8-7.8); NEUTROPHILS % (AUTO) 61 % (42-75); PLATELET COUNT 249 10^3/uL (130-400); RED BLOOD COUNT 4.21 10^6/uL (4.35-5.85); RED CELL DISTRIBUTION WIDTH 13.2 % (10.0-14.5); WHITE BLOOD COUNT 5.8 10^3/uL (4.3-11.0)
[2018-01-19] MEDS ORDERED: DILTIAZEM 25 MG/5 ML INJ (CARDIZEM) VIAL IVP ONE (08:00)
[2018-01-19] MEDS ORDERED: DILTIAZEM IV FOR DRIP 125 MG in NS (IVPB) 100 ML IV SCH ×2 (08:00→11:00)
[2018-01-19 08:08] LABS: PROTHROMBIN TIME PATIENT 13.7 SEC (12.2-14.7)
[2018-01-19 08:10] LABS: ALANINE AMINOTRANSFERASE 11 U/L (0-55); ALKALINE PHOSPHATASE 67 U/L (40-136); BILIRUBIN,TOTAL 0.5 MG/DL (0.1-1.0); BUN/CREATININE RATIO 25; CALCIUM 9.1 MG/DL (8.5-10.1); CARBON DIOXIDE 26 MMOL/L (21-32); CHLORIDE 106 MMOL/L (98-107); CREATININE SERUM 0.77 MG/DL (0.60-1.30); GFR ESTIMATED > 60; GLUCOSE 100 MG/DL (70-105); MAGNESIUM 2.1 MG/DL (1.8-2.4); POTASSIUM 3.8 MMOL/L (3.6-5.0); SODIUM 139 MMOL/L (135-145); TOTAL PROTEIN 6.9 GM/DL (6.4-8.2)
[2018-01-19 08:17] LABS: MYOGLOBIN SERUM 78.1 NG/ML (10.0-92.0)
--- NOTE | 2018-01-19 08:22 | Diagnostic Imaging Report ---
INDICATION: Arrythmia. Portable chest at 8:10 AM. Heart size and pulmonary vascularity are normal. Lungs are clear. There are no effusions or pneumothoraces. IMPRESSION: Negative chest. Dictated by: Dictated on workstation # [id number]
[2018-01-19] MEDS ORDERED: ASPIRIN 81 MG CHEW (CHILDREN'S ASA) PO ONE (09:00)
[2018-01-19 09:31] LABS: FREE T4 (FREE THYROXINE) 1.22 NG/DL (0.70-1.48)
[2018-01-19] MEDS ORDERED: NS IV 1000 ML 1,000 ML IV SCH (09:42)
[2018-01-19] MEDS ORDERED: APIXABAN 2.5 MG (ELIQUIS) TABLET PO ONE ×2 (09:45→21:00)
--- NOTE | 2018-01-19 09:59 | ED Chest Pain ---
General Chief Complaint: Cardiac/General Problems Stated Complaint: INCREASED HEARTRATE Nursing Triage Note: c/o rapid heart rate with chest pressure. Onset this morning around 0630 upon awakening. Nursing Sepsis Screen: No Definite Risk Source: patient Exam Limitations: no limitations History of Present Illness Date Seen by Provider: Jan 19, 2018 Time Seen by Provider: 07:41 Initial Comments This 87-year-old woman presents to emergency room with complaints of "pounding chest" starting this morning at around 06:30. She reports less intense episodes intermittently from her atrial fibrillation. She is not anticoagulated at this time. Review of her chart notes she has also had episodes of SVT. She is noted to have a heart rate near 160 on assessment. Initial EKG appears to be atrial fibrillation. Her primary care provider is Dr. Benitez but she has not seen him in quite some time. 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 Patient admits that she sometimes forgets to take her medications. She lives alone. Allergies and Home Medications Allergies Coded Allergies: No Known Drug Allergies (Verified , 05/10/09) Home Medications Aspirin 81 Mg Tab.chew, 81 MG PO DAILY Prescribed by: FUNMI LANDIN on 08/29/16 1031 Hydrochlorothiazide 12.5 Mg Capsule, 12.5 MG PO DAILY, (Reported) Levothyroxine Sodium 125 Mcg Tablet, 125 MCG PO DAILY, (Reported) Lisinopril 10 Mg Tablet, 10 MG PO DAILY, (Reported) Metoprolol Succinate 50 Mg Tab.er.24h, 50 MG PO DAILY Prescribed by: FUNMI LANDIN on 08/29/16 1031 Patient Home Medication List Home Medication List Reviewed: Yes Review of Systems Constitutional: no symptoms reported EENTM: No Symptoms Reported Respiratory: No Symptoms Reported Cardiovascular: See HPI Gastrointestinal: No Symptoms Reported Genitourinary: No Symptoms Reported Musculoskeletal: no symptoms reported Skin: no symptoms reported Psychiatric/Neurological: No Symptoms Reported Endocrine: No Symptoms Reported Past Hqwwjbx-Dguvif-Iilwlo Hx Patient Social History Alcohol Use: Denies Use Number of Drinks Today: Alcohol Beverage of Choice: Wine Recreational Drug Use: No Smoking Status: Current Everyday Smoker Type Used: Cigarettes 2nd Hand Smoke Exposure: No Recent Foreign Travel: No Contact w/Someone Who Travel: No Recent Infectious Disease Expo: No Recent Hopitalizations: No Immunizations Up To Date Tetanus Booster (TDap): Less than 5yrs Date of Pneumonia Vaccine: Sep 17, 2011 Seasonal Allergies Seasonal Allergies: No Surgeries History of Surgeries: Yes Surgeries: Appendectomy Respiratory History of Respiratory Disorde: No Currently Using CPAP: No Currently Using BIPAP: No Cardiovascular History of Cardiac Disorders: Yes (SVT) Cardiac Disorders: Atrial Fibrillation Neurological History of Neurological Disord: Yes (tremors) Reproductive System : No Hx Reproductive Disorders: Yes 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 Genitourinary History of Genitourinary Disor: No Gastrointestinal History of Gastrointestinal Di: Yes (contstipation) Gastrointestinal Disorders: Chronic Constipation, Hemorrhoids Musculoskeletal History of Musculoskeletal Dis: Yes (RIGHT CARPAL TUNNEL--NO SURGERY) Musculoskeletal Disorders: Arthritis Endocrine History of Endocrine Disorders: Yes Endocrine Disorders: Hypothyroidsim Cancer History of Cancer: No Psychosocial History of Psychiatric Problem: No Integumentary History of Skin or Integumenta: No Blood Transfusions History of Blood Disorders: Yes Physical Exam Vital Signs Vital Signs - First Documented 01/19/18 07:51 Temp 97.5 Pulse 157 Resp 20 B/P (MAP) 141/98 (112) Pulse Ox 96 O2 Delivery Room Air Capillary Refill : Less Than 3 Seconds General Appearance: No Apparent Distress, Thin HEENT: PERRL/EOMI, Normal ENT Inspection, Pharynx Normal Neck: Normal Inspection Respiratory: Lungs Clear, Normal Breath Sounds, No Accessory Muscle Use, No Respiratory Distress Cardiovascular: No Edema, No Murmur, Tachycardia Gastrointestinal: Normal Bowel Sounds, Non Tender, Soft Extremity: Normal Inspection, No Pedal Edema Neurologic/Psychiatric: Alert, Oriented x3, No Motor/Sensory Deficits, Normal Mood/Affect, machine stoppage frequency checker II-XII Norm as Tested Skin: Normal Color, Warm/Dry Progress/Results/Core Measures Results/Orders Lab Results Laboratory Tests Test 01/19/18 07:35 01/19/18 09:50 Range/Units White Blood Count 5.8 4.3-11.0 10^3/uL Red Blood Count 4.21 L 4.35-5.85 10^6/uL Hemoglobin 13.7 11.5-16.0 G/DL Hematocrit 41 35-52 % Mean Corpuscular Volume 97 80-99 FL Mean Corpuscular Hemoglobin 33 25-34 PG Mean Corpuscular Hemoglobin Concent 34 32-36 G/DL Red Cell Distribution Width 13.2 10.0-14.5 % Platelet Count 249 130-400 10^3/uL Mean Platelet Volume 10.4 7.4-10.4 FL Neutrophils (%) (Auto) 61 42-75 % Lymphocytes (%) (Auto) 19 12-44 % Monocytes (%) (Auto) 8 0-12 % Eosinophils (%) (Auto) 12 H 0-10 % Basophils (%) (Auto) 1 0-10 % Neutrophils # (Auto) 3.5 1.8-7.8 X 10^3 Lymphocytes # (Auto) 1.1 1.0-4.0 X 10^3 Monocytes # (Auto) 0.4 0.0-1.0 X 10^3 Eosinophils # (Auto) 0.7 H 0.0-0.3 10^3/uL Basophils # (Auto) 0.0 0.0-0.1 10^3/uL Prothrombin Time 13.7 12.2-14.7 SEC INR Comment 1.0 0.8-1.4 Activated Partial Thromboplast Time 29 24-35 SEC Sodium Level 139 135-145 MMOL/L Potassium Level 3.8 3.6-5.0 MMOL/L Chloride Level 106 98-107 MMOL/L Carbon Dioxide Level 26 21-32 MMOL/L Anion Gap 7 5-14 MMOL/L Blood Urea Nitrogen 19 H 7-18 MG/DL Creatinine 0.77 0.60-1.30 MG/DL Estimat Glomerular Filtration Rate > 60 BUN/Creatinine Ratio 25 Glucose Level 100 70-105 MG/DL Calcium Level 9.1 8.5-10.1 MG/DL Magnesium Level 2.1 1.8-2.4 MG/DL Total Bilirubin 0.5 0.1-1.0 MG/DL Aspartate Amino Transf (AST/SGOT) 21 5-34 U/L Alanine Aminotransferase (ALT/SGPT) 11 0-55 U/L Alkaline Phosphatase 67 40-136 U/L Myoglobin 78.1 10.0-92.0 NG/ML Troponin I < 0.30 <0.30 NG/ML Total Protein 6.9 6.4-8.2 GM/DL Albumin 4.0 3.2-4.5 GM/DL Thyroid Stimulating Hormone (TSH) 7.44 H 0.35-4.94 UIU/ML Free Thyroxine 1.22 0.70-1.48 NG/DL Urine Color YELLOW Urine Clarity CLEAR Urine pH 8 5-9 Urine Specific [place] 1.010 L 1.016-1.022 Urine Protein NEGATIVE NEGATIVE Urine Glucose (UA) NEGATIVE NEGATIVE Urine Ketones NEGATIVE NEGATIVE Urine Nitrite POSITIVE H NEGATIVE Urine Bilirubin NEGATIVE NEGATIVE Urine Urobilinogen NORMAL NORMAL MG/DL Urine Leukocyte Esterase 3+ H NEGATIVE Urine RBC (Auto) 1+ H NEGATIVE Urine RBC RARE /HPF Urine WBC 25-50 H /HPF Urine Squamous Epithelial Cells 5-10 /HPF Urine Crystals NONE /LPF Urine Bacteria LARGE H /HPF Urine Casts NONE /LPF Urine Mucus NEGATIVE /LPF Urine Culture Indicated YES My Orders Orders - STACI BARNETT MD Cbc With Automated Diff (01/19/18 07:47) Magnesium (01/19/18 07:47) Chest 1 View, Ap/Pa Only (01/19/18 07:47) Ekg Tracing (01/19/18 07:47) Cardiac Profile 1 (01/19/18 07:47) Comprehensive Metabolic Panel (01/19/18 07:47) Myoglobin Serum (01/19/18 07:47) Protime With Inr (01/19/18 07:47) Partial Thromboplastin Time (01/19/18 07:47) O2 (01/19/18 07:47) Monitor-Rhythm Ecg Trace Only (01/19/18 07:47) Lipid Panel (01/20/18 06:00) Saline Lock/Iv-Start (01/19/18 07:47) Diltiazem Injection (Cardizem Injection) (01/19/18 08:00) Ns (Ivpb) (Sodium C... W/Diltiazem Iv Fo (01/19/18 08:00) Thyroid Stimulating Hormone (01/19/18 08:43) Free T4 (Free Thyroxine) (01/19/18 08:43) Aspirin Chewable Tablet (Baby Aspirin Ch (01/19/18 09:00) Apixaban Tablet (Eliquis Tablet) (01/19/18 09:45) Ns Iv 1000 Ml (Sodium Chloride 0.9%) (01/19/18 09:42) Ua Culture If Indicated (01/19/18 09:47) Medications Given in ED Current Medications Medications Dose Ordered Sig/Lesly Route Start Time Stop Time Status Last Admin Dose Admin Apixaban 2.5 mg ONCE ONCE PO 01/19/18 09:45 01/19/18 09:46 DC 01/19/18 11:19 2.5 MG Aspirin 243 mg ONCE ONCE PO 01/19/18 09:00 01/19/18 09:01 DC 01/19/18 09:18 243 MG Diltiazem HCl 10 mg ONCE ONCE IVP 01/19/18 08:00 01/19/18 08:01 DC 01/19/18 08:06 10 MG Vital Signs/I&O Vital Sign - Last 12Hours 01/19/18 01/19/18 01/19/18 07:51 08:07 09:18 Temp 97.5 97.5 97.5 Pulse 157 157 Resp 20 20 B/P (MAP) 141/98 (112) 141/98 Pulse Ox 96 96 O2 Delivery Room Air Blood Pressure Mean: 112 Progress Note : Time: 10:08 Progress Note Patient was started on a Cardizem drip and remains tachycardic. Cardizem drip is being titrated. She was given a bolus of Cardizem as well on onset. A liter of IV fluids is also infusing. Workup was relatively unremarkable. Patient is feeling better on a Cardizem even though her heart rate remains high. Case was reviewed with Dr. Durham who requests continuing heart exam drip and starting Elequis 2.5 mg. First dose was ordered to be given in the ER. Patient initially requested to be full code but then changed her mind and requested to be DO NOT RESUSCITATE. Patient's condition was discussed with her daughter at 09:55. Daughter confirms that patient is not very compliant and does not see her providers frequently. ECG Initial ECG Impression Date: Jan 19, 2018 Initial ECG Impression Time: 07:41 Initial ECG Rate: 194 Initial ECG Rhythm: A Fib/Flutter Comment Rhythm appears to be atrial fibrillation with rapid ventricular rate. Nonspecific ST depression, probably rate related. No ST elevation. Diagnostic Imaging Diagonstic Imaging: Xray Plain Films/CT/US/NM/MRI: chest Comments Chest x-ray viewed by me and report reviewed. See report below: NAME: [facility] REC#: [id number] PT STATUS: REG ER : [id number] PHYSICIAN: STACI BARNETT MD ADMIT DATE: 01/19/18/ER Signed Date of Exam: 01/19/18 CHEST 1 VIEW, AP/PA ONLY INDICATION: Arrythmia. Portable chest at 8:10 AM. Heart size and pulmonary vascularity are normal. Lungs are clear. There are no effusions or pneumothoraces. IMPRESSION: Negative chest. Dictated by: Dictated on workstation # [id number] Dict: 01/19/18816 Trans: 01/19/18936 Interpreted by: HERMINIO HERRERA MD Electronically signed by: HERMINIO HERRERA MD 01/19/1837 Departure Communication (Admissions) Time/Spoke to Admitting Phy: 09:[address] Roldan Time/Spoke to Consulting Phy: 09:40 Communication/Consulting Dr. Durham Impression Impression: Primary Impression: Atrial fibrillation with RVR Additional Impression: Chest discomfort Disposition: ADMITTED INPATIENT Condition: Improved Admissions Decision to Admit Reason: Admit from ER (General) Decision to Admit/Date: Jan 19, 2018 Time/Decision to Admit Time: 07:45 Departure-Patient Inst. Referrals: LB BENITEZ MD (PCP/Family) Primary Care Physician STACI BARNETT MD Jan 19, 2018 09:59
[2018-01-19 10:00] LABS: BILIRUBIN,URINE NEGATIVE (NEGATIVE); CLARITY,URINE CLEAR; COLOR,URINE YELLOW; GLUCOSE, URINE (UA) NEGATIVE (NEGATIVE); KETONES,URINE NEGATIVE (NEGATIVE); LEUKOCYTE ESTERASE ,URINE 3+ (NEGATIVE); NITRITE,URINE POSITIVE (NEGATIVE); PH,URINE 8 (5-9); PROTEIN,URINE NEGATIVE (NEGATIVE); UROBILINOGEN,URINE NORMAL (NORMAL)
[2018-01-19 10:12] LABS: BACTERIA,URINE LARGE /HPF; RBC,URINE RARE /HPF; WBC,URINE 25-50 /HPF
--- OUTSIDE RECORDS SUMMARY | 2018-01-19 10:52 | XMS REPORT | Continuity of Care Document ---
Author Author [facility] Organization [facility] Address Unknown Phone Unavailable Allergies Active Description Code Type Severity Reaction Onset Reported/Identified Relationship to Patient Clinical Status Yes No Known Drug Allergies [id number] Drug Allergy Unknown N/A 05/10/2009 Medications There [...] CAUSE STATUS 01/08/2017 YU DOWES Ot Z79.82 MCC (CURRENT) USE OF ASPIRIN 01/08/2017 WES NICHOLAS DO Ot Z79.899 OTHER WELT BUTTER HAND (CURRENT) DRUG THERAPY 01/08/2017 JESUS SMALL FAC, [...] UNSPECIFIED 04/12/2017 ALISSON KOVACS MD Ot Z79.82 MCC (CURRENT) USE OF ASPIRIN 04/12/2017 ALISSON KOVACS MD Ot Z79.899 OTHER MCC (CURRENT) DRUG THERAPY 04/15/2017 ALISSON KOVACS MD Ot E03.9 HYPOTHYROIDISM, UNSPECIFIED 04/15/2017 ALISSON KOVACS MD Ot F17.210 NICOTINE DEPENDENCE, CIGARETTES, UNCOMPL 04/15/2017 ALISSON KOVACS MD Ot I48.0 PAROXYSMAL ATRIAL FIBRILLATION 04/15/2017 ALISSON KOVACS MD Ot R07.9 CHEST PAIN, UNSPECIFIED 04/15/2017 ALISSON KOVACS MD Ot Z79.82 WELT BUTTER HAND (CURRENT) USE OF ASPIRIN 04/15/2017 ALISSON KOVACS MD Ot Z79.899 OTHER MCC (CURRENT) DRUG THERAPY 04/16/2017 ALISSON KOVACS MD Ot E03.9 HYPOTHYROIDISM, UNSPECIFIED 04/16/2017 ALISSON KOVACS MD Ot F17.210 NICOTINE DEPENDENCE, CIGARETTES, UNCOMPL 04/16/2017 ALISSON KOVACS MD Ot I48.0 PAROXYSMAL ATRIAL FIBRILLATION 04/16/2017 ALISSON KOVACS MD Ot R07.9 CHEST PAIN, UNSPECIFIED 04/16/2017 ALISSON KOVACS MD Ot Z79.82 MCC (CURRENT) USE OF ASPIRIN 04/16/2017 ALISSON KOVACS MD Ot Z79.899 OTHER MCC (CURRENT) DRUG THERAPY 04/25/2017 ROSALINO SEPULVEDA CONSTRUCTION PROJECT COORDINATOR Ot J18.9 PNEUMONIA, UNSPECIFIED ORGANISM 04/25/2017 ROSALINO SEPULVEDA R CONSTRUCTION PROJECT COORDINATOR Ot J44.0 CHRONIC OBSTRUCTIVE PULMON DISEASE W [facility] 05/02/2017 ROSALINO SEPULVEDA R CONSTRUCTION PROJECT COORDINATOR Ot J18.9 PNEUMONIA, UNSPECIFIED ORGANISM 05/22/2017 ROSALINO SEPULVEDA R CONSTRUCTION PROJECT COORDINATOR Ot J18.9 PNEUMONIA, UNSPECIFIED ORGANISM 05/22/2017 ROSALINO SEPULVEDA R CONSTRUCTION PROJECT COORDINATOR Ot J44.0 CHRONIC OBSTRUCTIVE PULMON DISEASE [facility] 05/26/2017 ROSALINO SEPULVEDA R CONSTRUCTION PROJECT COORDINATOR Ot J18.9 PNEUMONIA, UNSPECIFIED ORGANISM 06/23/2017 KIRSTY SEPULVEDAN R CONSTRUCTION PROJECT COORDINATOR Ot J18.9 PNEUMONIA, UNSPECIFIED ORGANISM 06/23/2017 ROSALINO SEPULVEDA R CONSTRUCTION PROJECT COORDINATOR Ot J18.9 PNEUMONIA, UNSPECIFIED ORGANISM 06/23/2017 ROSALINO SEPULVEDA R CONSTRUCTION PROJECT COORDINATOR Ot J44.0 CHRONIC OBSTRUCTIVE PULMON DISEASE W [facility] 06/23/2017 ROSALINO SEPULVEDA R CONSTRUCTION PROJECT COORDINATOR Ot J18.9 PNEUMONIA, UNSPECIFIED ORGANISM Procedures There [...] culture - 08/27/16 23:59 Bacterial urine culture [id number] NRG COLONY COUNT >100,000/ML NRG FTX;REPORTABLE SENSITIVITY [...] NR Manual blood basophils/100 leukocytes 0 % [facility] Blood poikilocytosis detection by light microscopy SLIGHT [facility] Bacterial blood culture - 01/08/17 13:19 Bacterial blood culture NG [facility] Influenza virus A and B antigen detection - 01/08/17 13:23 FLU RESULT NEGATIVE FOR INFLUENZA A AND B ANTIGENS BY IA [facility] Bacterial blood culture - 01/08/17 13:49 Bacterial [...] culture - 01/08/17 14:17 Bacterial urine culture [id number] NRG COLONY COUNT >100,000/ML NRG FTX;REPORTABLE SENSITIVITY REPORTED AT 1704, 01-09-17 NR URINE CULTURE RESULTS PLUS [facility] Bacterial susceptibility panel - 01/08/17 14:17 Gentamicin [...] culture - 04/12/17 06:53 Bacterial urine culture [id number] NRG COLONY COUNT >100,000/ML NRG FTX;REPORTABLE SENSITIVITY [...] automated white blood cell (WBC) differential - 01/19/18 07:35 Blood leukocytes automated count (number/volume) 5.8 10*3/uL 4.3-11.0 Blood erythrocytes automated count (number/volume) 4.21 10*6/uL 4.35-5.85 Venous blood hemoglobin measurement (mass/volume) 13.7 g/dL 11.5-16.0 Blood hematocrit (volume fraction) 41 % 35-52 Automated erythrocyte mean corpuscular volume 97 [foz_us] 80-99 Automated erythrocyte mean corpuscular hemoglobin (mass per erythrocyte) 33 pg 25-34 Automated erythrocyte mean corpuscular hemoglobin concentration measurement ( mass/volume) 34 g/dL 32-36 Automated erythrocyte distribution width ratio 13.2 % 10.0-14.5 Automated blood platelet count (count/volume) 249 10*3/uL 130-400 Automated blood platelet mean volume measurement 10.4 [foz_us] 7.4-10.4 Automated blood neutrophils/100 leukocytes 61 % 42-75 Automated blood lymphocytes/100 leukocytes 19 % 12-44 Blood monocytes/100 leukocytes 8 % 0-12 Automated blood eosinophils/100 leukocytes 12 % 0-10 Automated blood basophils/100 leukocytes 1 % 0-10 Blood neutrophils automated count (number/volume) 3.5 10*3 1.8-7.8 Blood lymphocytes automated count (number/volume) 1.1 10*3 1.0-4.0 Blood monocytes automated count (number/volume) 0.4 10*3 0.0-1.0 Automated eosinophil count 0.7 10*3/uL 0.0-0.3 Automated blood basophil count (count/volume) 0.0 10*3/uL 0.0-0.1 Comprehensive metabolic panel - 01/19/18 07:35 Serum or plasma sodium measurement (moles/volume) 139 mmol/L 135-145 Serum or plasma potassium measurement (moles/volume) 3.8 mmol/L 3.6-5.0 Serum or plasma chloride measurement (moles/volume) 106 mmol/L 98-107 Carbon dioxide 26 mmol/L 21-32 Serum or plasma anion gap determination (moles/volume) 7 mmol/L 5-14 Serum or plasma urea nitrogen measurement (mass/volume) 19 mg/dL 7-18 Serum or plasma creatinine measurement (mass/volume) 0.77 mg/dL 0.60-1.30 Serum or plasma urea nitrogen/creatinine mass ratio 25 NRG Serum or plasma creatinine measurement with calculation of estimated glomerular filtration rate > NRG Serum or plasma glucose measurement (mass/volume) 100 mg/dL 70-105 Serum or plasma calcium measurement (mass/volume) 9.1 mg/dL 8.5-10.1 Serum or plasma total bilirubin measurement (mass/volume) 0.5 mg/dL 0.1-1.0 Serum or plasma alkaline phosphatase measurement (enzymatic activity/volume) 67 U/L 40-136 Serum or plasma aspartate aminotransferase measurement (enzymatic activity/ volume) 21 U/L 5-34 Serum or plasma alanine aminotransferase measurement (enzymatic activity/volume ) 11 U/L 0-55 Serum or plasma protein measurement (mass/volume) 6.9 g/dL 6.4-8.2 Serum or plasma albumin measurement (mass/volume) 4.0 g/dL 3.2-4.5 Magnesium - 01/19/18 07:35 Magnesium 2.1 mg/dL 1.8-2.4 PT panel in platelet poor plasma by coagulation assay - 01/19/18 07:35 Prothrombin time (PT) in platelet poor plasma by coagulation assay 13.7 s 12.2-14.7 INR in platelet poor plasma or blood by coagulation assay 1.0 0.8-1.4 Activated partial thromboplastin time (aPTT) in platelet poor plasma bycoagulation assay - 01/19/18 07:35 Activated partial thromboplastin time (aPTT) in platelet poor plasma bycoagulation assay 29 s 24-35 Serum or plasma troponin i.cardiac measurement (mass/volume) - 01/19/18 07:35 Serum or plasma troponin i.cardiac measurement (mass/volume) < ng/ mL <0.30 Myoglobin, serum - 01/19/18 07:35 Myoglobin, serum 78.1 ng/mL 10.0-92.0 Encounters ACCT No. Visit Date/Time Discharge Status Pt. Type Provider Facility Loc./Unit Complaint [id number] 04/30/2017 12:24:00 04/30/2017 23:59:59 CLS Outpatient ROSALINO SEPULVEDA APRN [facility] RAD PNEUMONIA [id number] 04/23/2017 09:43:00 04/23/2017 23:59:59 CLS Outpatient ROSALINO SEPULVEDA CONSTRUCTION PROJECT COORDINATOR [facility] RAD PNEUMONIA [id number] 04/12/2017 06:20:00 04/12/2017 10:15:00 DIS Emergency ALISSON KOVACS MD [facility] ER CP [id number] 01/08/2017 12:26:00 01/08/2017 16:30:00 DIS Emergency WES NICHOLAS DO [facility] ER FALL/LEFT HIP PAIN [id number] 09/24/2016 11:32:00 09/24/2016 23:59:59 CLS Outpatient JESUS SMALL FACC, KOBY SKINNER CCDS [facility] CARD AVNRT, TOBACCO USER,CHEST DISCOMFORT [id number] 08/27/2016 23:48:00 08/29/2016 10:31:00 DIS Inpatient LB BENITEZ MD [facility] 4TH SVT-UTI-HTN [id number] 10/10/2013 15:39:00 10/10/2013 16:36:00 DIS Emergency TORRIE ALCALA APRN [facility] ER LEFT HAND PAIN [id number] 01/19/2018 07:57:00 Document Registration [id number] 08/28/2016 01:47:00 Document Registration
[2018-01-19] MEDS ORDERED: DILTIAZEM 240 MG (CARDIZEM CD) CAP PO NR (12:30)
[2018-01-19] MEDS ORDERED: DILTIAZEM INJECTION 125 MG in NS (IVPB) 100 ML IV SCH (12:45)
--- NOTE | 2018-01-19 12:51 | Consultation-Cardiology ---
HPI-Cardiology Cardiology Consultation: Date of Consultation 01/19/18 Time Seen by Provider: 12:50 Date of Admission Attending Physician Eileen Roldan MD Admitting Physician Nick Lau MD Consulting Physician KOBY LEE MD, MA, FACP, FACC, FSCAI, CCDS HPI: Chief Complaint: Palpitations HPI: 87 yo woman with palpitations at rest (woke her from her sleep this morning): feeling of rapid heart beat associated with a feeling of shortness of breath. No chest discomfort. Had dizziness w/o syncope Review of Systems-Cardiology Review of Systems Constitutional: malaise, tiredness, weight loss (slow, chronic) Eyes: No vision change Ears/Nose/Throat: No ear discharge, No nasal drainage, No recent hearing loss Respiratory: As described under HPI Cardiovascular: As described under HPI Gastrointestinal: No constipation, No diarrhea, No nausea, No vomiting Genitourinary: No dysuria, No hematuria, No urine frequency changes Musculoskeletal: back pain (chronic), joint pain (chronic) Skin: No rash, No ulcerations Psychiatric/Neurological: No seizure, No focal weakness, No syncope Hematologic: No bleeding abnormalities ZAF-Vfotww-Vnuycx Hx Patient Social History Alcohol Use: Denies Use Recreational Drug Use: No Smoking Status: Current Everyday Smoker Type Used: Cigarettes 2nd Hand Smoke Exposure: No Recent Foreign Travel: No Recent Infectious Disease Expo: No Physical Abuse Screen: No Sexual Abuse: No Immunizations Up To Date Tetanus Booster (TDap): Less than 5yrs Date of Pneumonia Vaccine: Sep 17, 2011 Date of Influenza Vaccine: Sep 25, 2017 Past Medical History PMH As described under Assessment. Family Medical History Family Medical History: Her parents of [place], mother in her 80s, father in his 70s Allergies and Home Medications Allergies Coded Allergies: No Known Drug Allergies (Verified , 05/10/09) Home Medications Aspirin 81 Mg Tab.chew, 81 MG PO DAILY Prescribed by: FUNMI LANDIN on 08/29/16 1031 Hydrochlorothiazide 12.5 Mg Capsule, 12.5 MG PO DAILY, (Reported) Ketorolac Tromethamine 10 Mg Tablet, 10 MG PO Q6H Prescribed by: WES NICHOLAS on 01/08/17 1601 Levothyroxine Sodium 150 Mcg Tablet, 150 MCG PO DAILY@0630 Prescribed by: FUNMI LANDIN on 08/29/16 1031 Lisinopril 10 Mg Tablet, 10 MG PO DAILY, (Reported) Metoprolol Succinate 50 Mg Tab.er.24h, 50 MG PO DAILY Prescribed by: FUNMI LANDIN on 08/29/16 1031 Patient Home Medication List Home Medication List Reviewed: Yes Physical Exam-Cardiology Physical Exam Vital Signs/I&O Vital Sign - Last 12Hours 01/19/18 01/19/18 01/19/18 01/19/18 07:51 08:07 09:18 10:42 Temp 97.5 97.5 97.5 98.1 Pulse 157 157 150 Resp 20 20 20 B/P (MAP) 141/98 (112) 141/98 108/80 Pulse Ox 96 96 97 O2 Delivery Room Air 01/19/18 01/19/18 01/19/18 01/19/18 10:45 10:58 11:15 12:00 Temp 96.9 Pulse 147 161 134 70 Resp 9 13 12 18 B/P (MAP) 119/91 (100) 119/91 (100) 111/85 (94) 126/80 (95) Pulse Ox 98 98 98 95 O2 Delivery Room Air Room Air Room Air Room Air Capillary Refill : Less Than 3 Seconds Data Review Labs Laboratory Tests 01/19/18 07:35: White Blood Count 5.8, Red Blood Count 4.21L, Hemoglobin 13.7, Hematocrit 41, Mean Corpuscular Volume 97, Mean Corpuscular Hemoglobin 33, Mean Corpuscular Hemoglobin Concent 34, Red Cell Distribution Width 13.2, Platelet Count 249, Mean Platelet Volume 10.4, Neutrophils (%) (Auto) 61, Lymphocytes (%) (Auto) 19 , Monocytes (%) (Auto) 8, Eosinophils (%) (Auto) 12H, Basophils (%) (Auto) 1, Neutrophils # (Auto) 3.5, Lymphocytes # (Auto) 1.1, Monocytes # (Auto) 0.4, Eosinophils # (Auto) 0.7H, Basophils # (Auto) 0.0, Prothrombin Time 13.7, INR Comment 1.0, Activated Partial Thromboplast Time 29, Sodium Level 139, Potassium Level 3.8, Chloride Level 106, Carbon Dioxide Level 26, Anion Gap 7, Blood Urea Nitrogen 19H, Creatinine 0.77, Estimat Glomerular Filtration Rate > 60, BUN/Creatinine Ratio 25, Glucose Level 100, Calcium Level 9.1, Magnesium Level 2.1, Total Bilirubin 0.5, Aspartate Amino Transf (AST/SGOT) 21, Alanine Aminotransferase (ALT/SGPT) 11, Alkaline Phosphatase 67, Myoglobin 78.1, Troponin I < 0.30, Total Protein 6.9, Albumin 4.0, Thyroid Stimulating Hormone ( TSH) 7.44H, Free Thyroxine 1.22 01/19/18 09:50: Urine Color YELLOW, Urine Clarity CLEAR, Urine pH 8, Urine Specific Franklin 1.010L, Urine Protein NEGATIVE, Urine Glucose (UA) NEGATIVE, Urine Ketones NEGATIVE, Urine Nitrite POSITIVEH, Urine Bilirubin NEGATIVE, Urine Urobilinogen NORMAL, Urine Leukocyte Esterase 3+H, Urine RBC (Auto) 1+H, Urine RBC RARE, Urine WBC 25-50H, Urine Squamous Epithelial Cells 5-10, Urine Crystals NONE, Urine Bacteria LARGEH, Urine Casts NONE, Urine Mucus NEGATIVE, Urine Culture Indicated YES A/P-Cardiology Assessment/Admission Diagnosis PAF with RVR, first documented on this admission of 01/19/18 Abnormal ECG on which ischemia cannot be excluded (01/19/18) H/o PSVT, short RP tachycardia, likely AVNRT, diagnosed during a hosp adm of Aug 2016 at [place], [place] Chest discomfort during an episode of tachycardia on 10/27/16 MPI of September 24, 2016 showed no evidence of myocardial ischemia or infarction. Normal regional wall motionLVEF 73%. Normal LV cavity size Hypertension Chronic tobacco use Hypothyroidism, treated with thyroid replacement therapy, but she has been intermittently noncompliant Chronic insomnia Low body wgt. Reports slow wgt loss over several years Chronic head tremor, followed by her pcp H/o carpal tunnel syndrome Discussion and Recomendations * Dilt for rate control * Apixaban for stroke prophylaxis. Low dose because age approaching 88 and BMI only 17 * Follow labs * Echo to eval for cardiomyopathy or valve disorder Clinical Quality Measures DVT/VTE Risk/Contraindication: Risk Factor Score Per Nursin RFS Level Per Nursing on Admit: 3=High KOBY LEE MD FACP FAC CCDS Jan 19, 2018 12:51
[2018-01-19] MEDS ORDERED: LEVO125T6 PO (14:22)
[2018-01-19] MEDS ORDERED: METO-370 PO ×2 (14:26)
[2018-01-19] MEDS ORDERED: ASPI-983 PO (14:26)
--- NOTE | 2018-01-19 16:04 | History & Physical-Hospitalist ---
HPI History of Present Illness: HPI/Chief Complaint Pt is an 87yoCF with a PMH of a fib, hypothyroidism, and HTN who presented to the ER due to SOB and heart palpitations. She states she woke up due to the SOB this morning and it continued to worsen prompting her to seek evaluation in the ER. She was found to be in a-fib with RVR. She has not had any previous episodes of a-fib with RVR but does have known a-fib. She takes metoprolol BID for this but sometimes misses her evening dose. She is unsure if she took it last night or not. She reports she is feeling much better now. She is no longer SOB and has no palpitations. She denies any chest pain. Source: patient Exam Limitations: no limitations Date Seen 01/19/18 Time Seen by Provider: 15:45 Attending Physician Luis Enrique Roldan MD PCP Nick Lau MD Referring Physician Date of Admission Jan 19, 2018 at 10:02 Home Medications & Allergies Home Medications Reviewed patient Home Medication Reconciliation Form Allergies Allergies Coded Allergies No Known Drug Allergies (Verified05/10/09) Past Nqajhsu-Gnxrkd-Xosstn Hx Patient Social History Employed/Student: retired Alcohol Use: Denies Use Alcohol Beverage of Choice: Wine Recreational Drug Use: No Smoking Status: Current Everyday Smoker Cigaretts per day: 4 Type Used: Cigarettes 2nd Hand Smoke Exposure: No Physical Abuse Screen: No Sexual Abuse: No Recent Foreign Travel: No Contact w/other who traveled: No Recent Hopitalizations: No Recent Infectious Disease Expo: No Immunizations Up To Date Tetanus Booster (TDap): Less than 5yrs Date of Pneumonia Vaccine: Sep 17, 2011 Date of Influenza Vaccine: Sep 25, 2017 Seasonal Allergies Seasonal Allergies: No Surgeries Yes Appendectomy Respiratory No Currently Using CPAP: No Currently Using BIPAP: No Cardiovascular Yes (SVT) Atrial Fibrillation Neurological Yes (tremors) Reproductive System : No Hx Reproductive Disorders: Yes [employer]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 Genitourinary No Gastrointestinal Yes Chronic Constipation, Hemorrhoids Musculoskeletal Yes (RIGHT CARPAL TUNNEL--NO SURGERY) Arthritis Endocrine History of Endocrine Disorders: Yes Endocrine Disorders: Hypothyroidsim HEENT History of HEENT Disorders: Yes Hearing Impairment: Hard of Hearing Cancer No Psychosocial History of Psychiatric Problem: Yes Behavioral Health Disorders: Sleep Difficulties Integumentary History of Skin or Integumenta: No Blood Transfusions History of Blood Disorders: Yes Family Medical History Significant Family History: No Pertinent Family Hx Review of Systems Constitutional: No chills, No fever EENTM: No blurred vision, No double vision, No nose congestion, No throat pain Respiratory: cough, No dyspnea on exertion, No phlegm, short of breath Cardiovascular: No chest pain, No edema, palpitations Gastrointestinal: No abdominal pain, No constipation, No diarrhea, No nausea, No vomiting Genitourinary: No dysuria, No frequency Musculoskeletal: No joint pain, No muscle pain Skin: No lesions, No rash Psychiatric/Neurological: Denies Headache, Denies Numbness, Denies Tingling Physical Exam Physical Exam Vital Signs Vital Signs - First Documented 01/19/18 07:51 Temp 97.5 Pulse 157 Resp 20 B/P (MAP) 141/98 (112) Pulse Ox 96 O2 Delivery Room Air Capillary Refill : Less Than 3 Seconds General Appearance: No Apparent Distress, WD/WN HEENT: PERRL/EOMI, Moist Mucous Membranes Neck: Non Tender, Supple, No Thyromegaly Respiratory: Lungs Clear, No Respiratory Distress Cardiovascular: Regular Rate, Rhythm, No Murmur Gastrointestinal: Normal Bowel Sounds, Non Tender, Soft Extremity: Normal Capillary Refill, No Calf Tenderness Neurologic/Psychiatric: Alert, Oriented x3, Normal Mood/Affect Skin: Normal Color, Warm/Dry Results Results/Procedures Lab Laboratory Tests 01/19/18 07:35 Assessment/Plan Admission Diagnosis A-fib with RVR Admission Status: Inpatient Order (span 2 midnights) Reason for Inpatient Admission: a-fib with RVR necessitating cardizem gtt Diagnosis/Problems Diagnosis/Problems (1) Atrial fibrillation with RVR Status: Acute Assessment & Plan: Originally started on cardizem gtt but was titrated off by my exam in sinus rhythm per telemetry Started on eliquis Will resume home Metoprolol Cardiology consulted, appreciate recs (2) Asymptomatic bacteriuria Assessment & Plan: bacteria noted in urine but 5-10 squams as well No fever, no leukocytosis asymptomatic, will await culture (3) HTN (hypertension) Assessment & Plan: BP well controlled- will resume metoprolol hold HCTZ/Lisinopril currently Qualifiers: Qualified Codes: I10 - Essential (primary) hypertension (4) Hypothyroidism Status: Chronic Assessment & Plan: TSH elevated but T4 normal Given a-fib with RVR will not increase- will discuss with PCP for monitoring as outpatient Qualifiers: Qualified Codes: E03.9 - Hypothyroidism, unspecified (5) Prophylactic measure Assessment & Plan: rBooks mistry Clinical Quality Measures DVT/VTE Risk/Contraindication: Risk Factor Score Per Nursin RFS Level Per Nursing on Admit: 3=High LUIS ENRIQUE ROLDAN MD Jan 19, 2018 16:04
[2018-01-19] MEDS ORDERED: MELATONIN 3 MG TABLET PO PRN (17:15)
[2018-01-19] MEDS ORDERED: ANTACID SUSP 30 ML UDC (MYLANTA) PO PRN (17:15)
[2018-01-19] MEDS ORDERED: ONDANSETRON 4 MG/2 ML (SDV) Z0FRAN IV PRN (17:15)
[2018-01-19] MEDS ORDERED: MILK OF MAGNESIA 400 MG/5 ML 30 ML UDC PO PRN (17:15)
[2018-01-19] MEDS ORDERED: BENZONATATE 100 MG (TESSALON) CAPSULE PO PRN (17:15)
[2018-01-19] MEDS ORDERED: ACETAMINOPHEN 325 MG TABLET/CAPLET (TYLENOL) PO PRN (17:30)
[2018-01-19] MEDS ORDERED: APIXABAN 2.5 MG (ELIQUIS) TABLET PO SCH (21:00)
[2018-01-19] MEDS: APIXABAN 2.5 MG (ELIQUIS) TABLET PO SCH (21:51)
[2018-01-20] VITALS (7 sets, daily range): BP systolic 149–180; BP diastolic 83–92
[2018-01-20 03:59] LABS: BASOPHILS % (AUTO) 1 % (0-10); EOSINOPHILS # (AUTO) 0.8 10^3/uL (0.0-0.3); EOSINOPHILS % (AUTO) 14 % (0-10); HEMATOCRIT 38 % (35-52); HEMOGLOBIN 12.5 G/DL (11.5-16.0); LYMPHOCYTES # (AUTO) 1.2 X 10^3 (1.0-4.0); LYMPHOCYTES % (AUTO) 22 % (12-44); MEAN CORPUSCULAR HEMOGLOBIN 33 PG (25-34); MEAN CORPUSCULAR HGB CONC 33 G/DL (32-36); MEAN CORPUSCULAR VOLUME 98 FL (80-99); MEAN PLATELET VOLUME 10.3 FL (7.4-10.4); MONOCYTES # (AUTO) 0.4 X 10^3 (0.0-1.0); MONOCYTES % (AUTO) 7 % (0-12); NEUTROPHILS # (AUTO) 3.2 X 10^3 (1.8-7.8); NEUTROPHILS % (AUTO) 57 % (42-75); PLATELET COUNT 231 10^3/uL (130-400); RED BLOOD COUNT 3.85 10^6/uL (4.35-5.85); RED CELL DISTRIBUTION WIDTH 13.3 % (10.0-14.5); WHITE BLOOD COUNT 5.7 10^3/uL (4.3-11.0)
[2018-01-20 04:22] LABS: BUN/CREATININE RATIO 25; CALCIUM 8.5 MG/DL (8.5-10.1); CARBON DIOXIDE 21 MMOL/L (21-32); CHLORIDE 109 MMOL/L (98-107); CHOLESTEROL 197 MG/DL (< 200); CREATININE SERUM 0.71 MG/DL (0.60-1.30); GFR ESTIMATED > 60; GLUCOSE 89 MG/DL (70-105); HDL CHOLESTEROL 54 MG/DL (40-60); POTASSIUM 4.3 MMOL/L (3.6-5.0); SODIUM 141 MMOL/L (135-145); TRIGLYCERIDES 60 MG/DL (<150); VLDL CHOLESTEROL 12 MG/DL (5-40)
[2018-01-20] MEDS ORDERED: LEVOTHYROXINE 125 MCG (LEVOTHROID) TABLET PO SCH (06:30)
[2018-01-20] MEDS ORDERED: CEPH-507 PO (07:26)
[2018-01-20] MEDS ORDERED: ACID1TAB PO (07:26)
--- NOTE | 2018-01-20 07:31 | Discharge Summary-Hospitalist ---
Diagnosis/Chief Complaint Date of Admission Jan 19, 2018 at 10:02 Date of Discharge Discharge Date: Jan 20, 2018 Admission Diagnosis A-fib with RVR Discharge Diagnosis (1) Atrial fibrillation with RVR Status: Acute Assessment & Plan: Originally started on cardizem gtt but was titrated off by my exam in sinus rhythm per telemetry Started on eliquis Will resume home Metoprolol Cardiology consulted, appreciate recs (2) Asymptomatic bacteriuria Assessment & Plan: bacteria noted in urine but 5-10 squams as well Klebsiella growing >100,000CFU, will start rocephin and complete course with Keflex as outpatient (3) HTN (hypertension) Assessment & Plan: BP elevated overnight on Metoprolol, will resume Lisinopril today (4) Hypothyroidism Status: Chronic Assessment & Plan: TSH elevated but T4 normal Given a-fib with RVR will not increase- will discuss with PCP for monitoring as outpatient (5) Prophylactic measure Assessment & Plan: Eliquis HH diet Saline lock Discharge Summary Consultations Dr Durham- Cardiology Discharge Physical Examination Allergies: Coded Allergies: No Known Drug Allergies (Verified , 05/10/09) Vitals & I&Os Vital Signs Date Time Temp Pulse Resp B/P (MAP) Pulse Ox O2 Delivery O2 Flow Rate FiO2 01/20/18 12:10 97.5 55 19 169/88 (115) 95 Room Air Hospital Course Pt is an 87yoCF who presented to the Er with CC of SOB and palpitations. She was found to be in a-fib with RVR and admitted to the ICU on a cardizem drip for rate control. She quickly converted to sinus rhythm and was able to be titrate off the drip. Hisotry revealed she will forget to take her medications at times. She was restarted on her home metoprolol and rate remained well controlled. She was started on Eliquis for anticoagulation as well. She was found to have a UTI (klebseilla in urine) and treated with Rocephin while inpatient and switched to Keflex to complete course. Labs (last 24 hrs) Laboratory Tests 01/20/18 03:25: White Blood Count 5.7, Red Blood Count 3.85L, Hemoglobin 12.5, Hematocrit 38, Mean Corpuscular Volume 98, Mean Corpuscular Hemoglobin 33, Mean Corpuscular Hemoglobin Concent 33, Red Cell Distribution Width 13.3, Platelet Count 231, Mean Platelet Volume 10.3, Neutrophils (%) (Auto) 57, Lymphocytes (%) (Auto) 22 , Monocytes (%) (Auto) 7, Eosinophils (%) (Auto) 14H, Basophils (%) (Auto) 1, Neutrophils # (Auto) 3.2, Lymphocytes # (Auto) 1.2, Monocytes # (Auto) 0.4, Eosinophils # (Auto) 0.8H, Basophils # (Auto) 0.0, Sodium Level 141, Potassium Level 4.3, Chloride Level 109H, Carbon Dioxide Level 21, Anion Gap 11, Blood Urea Nitrogen 18, Creatinine 0.71, Estimat Glomerular Filtration Rate > 60, BUN/ Creatinine Ratio 25, Glucose Level 89, Calcium Level 8.5, Magnesium Level 2.0, Triglycerides Level 60, Cholesterol Level 197, LDL Cholesterol Direct 124, VLDL Cholesterol 12, HDL Cholesterol 54 Microbiology 01/19/18 Urine Culture - Preliminary, Resulted Probable Klebsiella/Enterobact Pending Labs Discussion & Recommendations Discharge Planning: >30 minutes discharge planning Discharge Home Medications: Active Scripts Active Keflex (Cephalexin) 500 Mg Capsule 500 Mg PO BID Floranex Tablet (L. Acidophilus/Bulgaricus) 1 Each Tablet 1 Tab.chew PO AC Reported Aspirin EC (Aspirin) 81 Mg Tablet.dr 81 Mg PO DAILY Metoprolol Succinate 50 Mg Tab.er.24h 25 Mg PO HS FORGETS TO TAKE BEDTIME DOSE FREQUENTLY TAKES 1/2 (50MG) TABLET Metoprolol Succinate 50 Mg Tab.er.24h 50 Mg PO DAILY Levothyroxine Sodium 125 Mcg Tablet 125 Mcg PO DAILY Hydrochlorothiazide 12.5 Mg Capsule 12.5 Mg PO DAILY Lisinopril 10 Mg Tablet 10 Mg PO DAILY Instructions to patient/family Please see electronic discharge instructions given to patient. Clinical Quality Measures DVT/VTE Risk/Contraindication: Risk Factor Score Per Nursin RFS Level Per Nursing on Admit: 3=High Copy Copies To 1: LB BENITEZ MD Problem Qualifiers (1) HTN (hypertension): Hypertension type: essential hypertension Qualified Codes: I10 - Essential ( primary) hypertension (2) Hypothyroidism: Hypothyroidism type: unspecified Qualified Codes: E03.9 - Hypothyroidism, unspecified LUIS ENRIQUE PEREIRA MD Jan 20, 2018 07:31
--- NOTE | 2018-01-20 08:51 | Progress Note-Cardiology ---
Cardiology SOAP Progress Note Subjective: Sitting up in bed. States she did not sleep well last noc. Wants to go home. No c/o CP, palpitations, syncope or near syncope. Objective: I&O/Vital Signs Vital Sign - Last 12Hours 01/20/18 01/20/18 01/20/18 01/20/18 06:00 07:00 08:45 09:00 Temp 98.1 97.2 Pulse 54 66 57 Resp 22 22 B/P (MAP) 180/92 (121) 152/83 (106) Pulse Ox 99 94 94 O2 Delivery Room Air Room Air Room Air 01/20/18 01/20/18 01/20/18 12:10 12:30 15:55 Temp 97.5 Pulse 55 55 Resp 19 19 B/P (MAP) 169/88 (115) 169/88 Pulse Ox 95 95 95 O2 Delivery Room Air Room Air Room Air Intake and Output 01/20/18 00:00 Intake Total 1450 ml Output Total 900 ml Balance 550 ml Weight (Pounds): 101 Weight (Ounces): 5.0 Weight (Calculated Kilograms): 45.488000 Constitutional: AAO x 3, other (thin) Respiratory: No accessory muscle use, No respiratory distress, lungs clear to auscultation Cardiovascular: regular rate-rhythm, No JVD, S1 and S2, systolic murmur Gastrointestional: No tender, soft, audible bowel sounds Extremities: no lower extremity edema bilateral Neurologic/Psychiatric: grossly intact Skin: No rash, No ulcerations Results/Procedures: Labs Laboratory Tests 01/20/18 03:25: White Blood Count 5.7, Red Blood Count 3.85L, Hemoglobin 12.5, Hematocrit 38, Mean Corpuscular Volume 98, Mean Corpuscular Hemoglobin 33, Mean Corpuscular Hemoglobin Concent 33, Red Cell Distribution Width 13.3, Platelet Count 231, Mean Platelet Volume 10.3, Neutrophils (%) (Auto) 57, Lymphocytes (%) (Auto) 22 , Monocytes (%) (Auto) 7, Eosinophils (%) (Auto) 14H, Basophils (%) (Auto) 1, Neutrophils # (Auto) 3.2, Lymphocytes # (Auto) 1.2, Monocytes # (Auto) 0.4, Eosinophils # (Auto) 0.8H, Basophils # (Auto) 0.0, Sodium Level 141, Potassium Level 4.3, Chloride Level 109H, Carbon Dioxide Level 21, Anion Gap 11, Blood Urea Nitrogen 18, Creatinine 0.71, Estimat Glomerular Filtration Rate > 60, BUN/ Creatinine Ratio 25, Glucose Level 89, Calcium Level 8.5, Magnesium Level 2.0, Triglycerides Level 60, Cholesterol Level 197, LDL Cholesterol Direct 124, VLDL Cholesterol 12, HDL Cholesterol 54 Microbiology 01/19/18 MRSA Screen - Final, Complete MRSA not isolated 01/19/18 Urine Culture - Preliminary, Resulted Klebsiella pneumoniae Probable E.coli A/P: Assessment: PAF with RVR, first documented on this admission of 01/19/18 - converted to SR Abnormal ECG on which ischemia cannot be excluded (01/19/18). No clinical evidence of ACS Echo of 01/19/18: LVEF 70-75%, mild to mod biatrial enlargement, AoV sclerosis w/ o stenosis, PASP 40-45 mmHg H/o PSVT, short RP tachycardia, likely AVNRT, diagnosed during a hosp adm of Aug 2016 at [place], [place] Chest discomfort during an episode of tachycardia on 10/27/16 MPI of September 24, 2016 showed no evidence of myocardial ischemia or infarction. Normal regional wall motion LVEF 73%. Normal LV cavity size Hypertension Chronic tobacco use Hypothyroidism, treated with thyroid replacement therapy, but she has been intermittently noncompliant Chronic insomnia Low body wgt. Reports slow wgt loss over several years Chronic head tremor, followed by her pcp H/o carpal tunnel syndrome Plan: * Dilt for rate control - converted to SR * Apixaban for stroke prophylaxis. Low dose because age approaching 88 and BMI only 17 * Follow labs * Echo to eval for cardiomyopathy or valve disorder - pending * TSH 7.44 this a.m. - management of thyroid as per medical services * HTN - BP not well controlled - home meds of Lisinopril and Toprol XL have been resumed this morning - adjust as indicated Physician Assessment Physician Assessment Feels well today; no cp, no palp, no syncope, no shortness of breath Cor: reg Lungs: good bilat air entry Ext: no c/c/e A&R * As documented in our note above that I updated (italics) as the time of this writing * I discussed her cardiac w/u, hosp course, and med changes with her. We discussed the rationale of med changes and potential side effects * We advised compliance with meds * We advised outpatient f/u * I answered her and her family's questions DWAYNE COLLINS Jan 20, 2018 08:51 KOBY LEE MD [facility] Jan 20, 2018 17:06
[2018-01-20] MEDS ORDERED: cefTRIAXone INJECTION 1,000 MG in NS (IVPB) 100 ML IV SCH (09:00)
[2018-01-20] MEDS ORDERED: lisINopril 10 MG (PRINIVIL) TABLET PO SCH (09:00)
[2018-01-20] MEDS ORDERED: meTOproloL SUCCINATE 50 MG (TOPROL XL) TAB PO SCH (09:00)
[2018-01-20] MEDS: APIXABAN 2.5 MG (ELIQUIS) TABLET PO SCH (09:05)
--- NOTE | 2018-01-20 09:14 | D/C HH Face to Face Order ---
D/C Face to Face Orders Instructions for Patient Patient Instructions/FollowUp: Please continue to take your medications as written. It is important to follow up with your PCP to follow up this hospital stay. If you symptoms return or worsen please seek evaluation. Physician to follow Patient: Dr Lau Discharge Diet for Home: Cardiac Diet Patient Data-Allergies,Ht & Wt Patient Allergies: Coded Allergies: No Known Drug Allergies (Verified , 05/10/09) Height (Feet): 5 Height (Inches): 5.00 Weight (Pounds): 101 Weight (Ounces): 5.0 Home Health Need/Face to Face Date of Face to Face: Jan 20, 2018 Clinical Findings: Unsteady gait I have seen Pt [id number]: Yes Discharged To: Home Diagnosis/Conditions: History of hip fracture, unsteady gait, a-fib with RVR Problems/Diagnosis/Condition: Patient is Homebound due to: Yovana fall risk due to instabilty Homebound Status Due to the above stated illness, injury or surgical procedure (medical condition or diagnosis) and associated clinical findings, the patient is homebound because of his/her inability to leave home except with aid of a supportive device and/or person AND leaving the home requires a considerable and taxing effort or is medically contraindicated. Pt req the following assistanc: [facility] Nursing Orders Home Health Services Order: Nursing Services, Physical Therapy-Evaluate & Treat Home Health Infusion Therapy Line Start Date: Jan 19, 2018 Line Start Time: 728 Line Type: Saline Lock Site Location: Forearm Therapy Orders Therapy Orders: PT to assess for OT Therapy Specific Orders: Eval assistive deivces, Teach enviro modifications/ safety, Gait training, Increase strength/endurance Certify Stmt I certify that this patient is under my care and that I, a nurse practitioner or a physician; a pediatric assistant working with me, had a face to face encounter that - meets the physician face to face encounter requirements with this patient as dated. LUIS ENRIQUE PEREIRA MD Jan 20, 2018 9:13 am
--- NOTE | 2018-01-20 09:24 | Physical Therapy Evaluation ---
PT Evaluation-General Medical Diagnosis Admission Date Jan 19, 2018 at 10:02 Medical Diagnosis: A-fib with RVR Onset Date: Jan 19, 2018 Therapy Diagnosis Therapy Diagnosis: debility/weakness Height/Weight Height (Feet): 5 Height (Inches): 5.00 Weight (Pounds): 101 Weight (Ounces): 5.0 Precautions Precautions/Isolations: Standard Precautions Weight Bear Status Right Lower Extremity: Right Weight Bearing/Tolerated Left Lower Extremity: Left Weight Bearing/Tolerated Referral Physician: Kimberly Reason for Referral: Evaluation/Treatment Medical History Pertinent Medical History: Atrial Fib, HTN, Hypothroidism, Smoking Current History ED secondary to SOB Reviewed History: Yes Social History Home: Multilevel Current Living Status: Alone Entry Into Home: Stairs With Railing PT Steps Into Home: 4 PT Steps Inside Home: 12 Prior/Core FIM Prior Level of Function Functional Tros[place] Measure 0=Not Assessed/NA 4=Minimal Assistance 1=Total Assistance 5=Supervision or Setup 2=Maximal Assistance 6=Modified Trosper 3=Moderate Assistance 7=Complete Trosper Bed Mobility: 6 Transfers (B,C,W/C) (FIM): 6 Gait: 6 uses cane, however, needs FWW PT Evaluation-Current Subjective Patient agrees to PT. Pain Numeric Pain Scale: 0-No Pain Location: No Pain Reported Objective Patient Orientation: Normal For Age Problem Solving: Fair ROM/Strength ROM Lower Extremities bilateral LE WNL Strength Lower Extremities 4/5 grossly bilaterally Integumentary/Posture Integumentary refer to nursing notes Sensory Vision: Functional Hearing: Impaired Sensation Right Lower Extremit: Intact Sensation Left Lower Extremity: Intact Transfers Functional Trosper Measure 0=Not Assessed/NA 4=Minimal Assistance 1=Total Assistance 5=Supervision or Setup 2=Maximal Assistance 6=Modified Trosper 3=Moderate Assistance 7=Complete Trosper Transfers (B, C, W/C) (FIM): 6 Scootin Rollin Supine to/from Sit: 6 Sit to/from Stand: 6 Gait Mode of Locomotion: Walk Anticipated Mode of Locomotion: Walk Gait (FIM): 6 Distance (FIM): 3=150 ft Distance: 350' Gait Level of Assist: 6 Gait Assistive Device: FWW Comments/Gait Description steady, safe gait sequence with FWW Balance Sitting Static: Normal Sitting Dynamic: Normal Standing Static: Fair Standing Dynamic: Fair Assessment/Needs 87 y.o. female, is determined to return to home on this date. PT educated patient on safety concerns and to utilize FWW at home to prevent falls. Patient reports it will be difficult to use at home due to it is too cumbersome. PT highly encouraged patient to use FWW. This PT recommends home health PT to ensure safe return to home. Rehab Potential: Fair PT Plan Problem List Problem List: Safety Treatment/Plan Treatment Plan: Discontinue PT, goals met Treatment Plan: Other Treatment Duration: Jan 20, 2018 Frequency: 1 time per week Estimated Hrs Per Day: .5 hour per day Patient and/or Family Agrees t: Yes Safety Risks/Education Patient Education: Gait Training, Safety Issues Teaching Recipient: Patient Teaching Methods: Demonstration, Discussion Response to Teaching: Return Demonstration, Reinforcement Needed Discharge Recommendations Therapy D/C Recommendations: Physical Therapy Home Care Time/GCodes Time In: 815 Time Out: 835 Total Billed Treatment Time: 20 Total Billed Treatment 1 visit EVModC 20 min G Codes Necessary: Yes PT/OT Therapy GCodes Therapy Functional Limitation: Physical Therapy Test(s)/Tool used to determine: Level of Assistance Scale Functional Limitation-Current Charge Code: MOBCUR Modifier: CI Functional Limitation-Goal Charge Code: MOBGOAL Modifier: CI Functional Limitation-D/C Charge Codes: MOBDC Modifier: CI JOE AUGUSTINE PT Jan 20, 2018 09:24
--- NOTE | 2018-01-20 09:29 | Occupational Therapy Eval ---
OT Evaluation-General/PLF Medical Diagnosis Admission Date Jan 19, 2018 at 10:02 Medical Diagnosis: A-fib with RVR Onset Date: Jan 19, 2018 Therapy Diagnosis Therapy Diagnosis: decr act tolerance, decr self care Height/Weight Height (Feet): 5 Height (Inches): 5.00 Weight (Pounds): 101 Weight (Ounces): 5.0 Precautions Precautions/Isolations: Standard Precautions Safety Interventions: None Referral Physician: Kimberly Referral Reason: Evaluation/Treatment Medical History Pertinent Medical History: Atrial Fib, Arthritis, HTN, Hypothroidism, Smoking Additional Medical History Tremors. Chronic constipation. R carpal tunnel problems but no surgery. Current History Admitted with increased heart rate and a fib. Pt stated that, when her a fib hits, it "flutters all around in my chest" and she usually goes "goes down". Social History Home: Multilevel Current Living Status: Alone Entry Into Home: Stairs With Railing Steps Into Home: 4 Steps Inside Home: 12 ADL-Prior Level of Function ADL PLOF Comments Pt reported that she is able to manage her basic self care needs. Her daughters help with shopping, cleaning, etc. She still drives a little but not at night. She is retired. DME/Equipment: Bath Chair (does not use it) Drive Self: Yes (limited) OT Current Status Subjective Pt seen in room, up in bed, agreeable to OT. pt reported pain 0/10. Appearance Alert, cooperative. Visible tremors Mental Status/Objective Attachments: IV, Telemetry Current Glasses/Contacts: Yes Hand Dominance: Right Upper Extremity ROM Grossly WFL bilat Upper Extremity Sensation Pt reported some decreased sensation R hand from carpal tunnel problems and said it's beginning in her L hand. Upper Extremity Strength Grossly 4/5 bilat ADL-Treatment ADL-Current Pt was able to move from supine to sitting EOB without help. She could easily reach her slippers and take them off/put them on. She had just toileted and nursing/pt reported it was with SBA for hygiene and clothing management. Pt normally walks with cane, per her report, but agreed with PT recommendation for FWW. Pt was encouraged to use shower chair at home for safety and said that she dressed mostly while sitting. Suggested also that she ask her daughters to help with laundry for a few days since laundry facilities are in basement. Recommend home health OT, especially for bathroom safety assessment and recommendations. Functional Dent Measure 0=Not Assessed/NA 4=Minimal Assistance 1=Total Assistance 5=Supervision or Setup 2=Maximal Assistance 6=Modified Dent 3=Moderate Assistance 7=Complete IndependenceIRFPAI Quality Coding Scale 6 Independent with activity with or without an assistive device 5 Patient requires set up or clean up by helper. Patient completes activity by themselves 4 Supervision or touching assist (CGA). [place] provide cues , steadying assist 3 The helper provides less than half the effort to complete the activity 2 The helper provides more than half the effort to complete the activity 1 Dependent. The helper does all the effort to complete an activity 7 Patient refused to complete or attempt activity 9 The patient did not perform the activity before the current illness or injury 88 Not attempted due to Medical conditions or safety concerns Education OT Patient Education: Purpose of tx/functional activities, Rehab process, Safety issues Teaching Recipient: Patient Teaching Methods: Discussion Response to Teaching: Verbalize Understanding OT Nursing Home Goals Nursing Home Goals Time Frame: Jan 20, 2018 recommendations for discharge - goal met OT Education/Plan Problem List/Assessment Assessment: Decreased Activ Tolerance, Decreased Safety Aware (for home safety) , Impaired Self-Care Skills Pt would benefit from skilled OT to increase her independence and safety at home after discharge. Recommendations provided and pt to DC to home today. DC OT Discharge Recommendations Plan/Recommendations: Discharge/Goals Met Therapy D/C Recommendations: Occupational Therapy Home Care Comment recommend front wheeled walker per PT, home health evaluation including bathroom safety Target Placement Home with family support Treatment Plan/Plan of Care Treatment,Training & Education: Yes Patient would benefit from OT for education, treatment and training to promote independence in ADL's, mobility, safety and/or upper extremity function for ADL' s. Plan of Care: OTHER (recommend home health OT for bathroom safety recommendations) Treatment Duration: Jan 20, 2018 Frequency: 1 time per week Estimated Hrs Per Day: .25 hour per day Agreement: Yes Rehab Potential: Good Time/GCodes Start Time: 09:00 Stop Time: 09:20 Total Time Billed (hr/min): 20 Billed Treatment Time visit, 20 minutes evaluation low intensity PT/OT Therapy GCodes Therapy Functional Limitation: Physical Therapy Test(s)/Tool used to determine: Level of Assistance Scale Functional Limitation-Current Charge Code: MOBCUR Modifier: CI Functional Limitation-Goal Charge Code: MOBGOAL Modifier: CI CARRIE SELF OT Jan 20, 2018 09:29
[2018-01-20] MEDS ORDERED: DILTIAZEM 240 MG (CARDIZEM CD) CAP PO NR (09:30)
[2018-01-20] MEDS ORDERED: LACTOBACILLUS Acidoph/Bulgar (LACTINEX/FLORANEX) TAB PO SCH (11:00)
[2018-01-20] MEDS ORDERED: DILT240C63 PO (12:39)
[2018-01-20] MEDS ORDERED: APIX2.5T PO (15:47)
[2018-01-21] MEDS ORDERED: DILTIAZEM 240 MG (CARDIZEM CD) CAP PO SCH (09:00)
== END 2018-01-20 15:55 | disposition home health service (06) | DRG 309 ==
LOC: EDUNIT# 07:29 → ER 07:30 → ICU 10:02
PROVIDERS: ADMIT Family Medicine; ATTEND Family Medicine
DX: I48.0 Paroxysmal atrial fibrillation (principal); R94.31 Abnormal electrocardiogram [ECG] [EKG]; I10 Essential (primary) hypertension; Z68.1 Body mass index [BMI] 19.9 or less, adult; R63.4 Abnormal weight loss; Z66 Do not resuscitate; R82.71 Bacteriuria; E03.9 Hypothyroidism, unspecified; H91.90 Unspecified hearing loss, unspecified ear; F51.04 Psychophysiologic insomnia; F17.210 Nicotine dependence, cigarettes, uncomplicated; R25.1 Tremor, unspecified; K59.09 Other constipation; K64.9 Unspecified hemorrhoids; G47.00 Insomnia, unspecified; Z91.14 Patient's other noncompliance with medication regimen; Z82.49 Family history of ischemic heart disease and other diseases of the circulatory system
CPT/HCPCS: 36415; 71045; 80048; 80053; 80061; 81000; 83735; 83874; 84439; 84443; 84484; 85025; 85610; 85730; 87077; 87081; 87088; 87186; 93005; 93041; 93306

== ENCOUNTER 2018-04-19 20:46 | Inpatient (IN) | payer MEDICARE, OTHER ==
[~2018-04-19] VITALS: Ht 165.1 cm; Wt 48.3 kg
[~2018-04-19 20:46] MED LIST changes: +ACID1TAB PO; +APIX2.5T PO; +ASPI-983 PO; +CEPH-507 PO; +DILT240C63 PO
--- OUTSIDE RECORDS SUMMARY | 2018-04-19 20:52 | XMS REPORT | Continuity of Care Document ---
Author Author [facility] Organization [facility] Address Unknown Phone Unavailable Allergies Active Description Code Type Severity Reaction Onset Reported/Identified Relationship to Patient Clinical Status Yes No Known Drug Allergies [id number] Drug Allergy Unknown N/A 05/10/2009 Medications There [...] CAUSE STATUS 01/08/2017 YU DOWES Ot Z79.82 ASSISTED (CURRENT) USE OF ASPIRIN 01/08/2017 WES NICHOLAS DO Ot Z79.899 OTHER PIERCER OPERATOR (CURRENT) DRUG THERAPY 01/08/2017 JESUS SMALL FAC, [...] UNSPECIFIED 04/12/2017 ALISSON KOVACS MD Ot Z79.82 ASSISTED (CURRENT) USE OF ASPIRIN 04/12/2017 ALISSON KOVACS MD Ot Z79.899 OTHER ASSISTED (CURRENT) DRUG THERAPY 04/15/2017 ALISSON KOVACS MD Ot E03.9 HYPOTHYROIDISM, UNSPECIFIED 04/15/2017 ALISSON KOVACS MD Ot F17.210 NICOTINE DEPENDENCE, CIGARETTES, UNCOMPL 04/15/2017 ALISSON KOVACS MD Ot I48.0 PAROXYSMAL ATRIAL FIBRILLATION 04/15/2017 ALISSON KOVACS MD Ot R07.9 CHEST PAIN, UNSPECIFIED 04/15/2017 ALISSON KOVACS MD Ot Z79.82 PIERCER OPERATOR (CURRENT) USE OF ASPIRIN 04/15/2017 ALISSON KOVACS MD Ot Z79.899 OTHER ASSISTED (CURRENT) DRUG THERAPY 04/16/2017 ALISSON KOVACS MD Ot E03.9 HYPOTHYROIDISM, UNSPECIFIED 04/16/2017 ALISSON KOVACS MD Ot F17.210 NICOTINE DEPENDENCE, CIGARETTES, UNCOMPL 04/16/2017 ALISSON KOVACS MD Ot I48.0 PAROXYSMAL ATRIAL FIBRILLATION 04/16/2017 ALISSON KOVACS MD Ot R07.9 CHEST PAIN, UNSPECIFIED 04/16/2017 ALISSON KOVACS MD Ot Z79.82 ASSISTED (CURRENT) USE OF ASPIRIN 04/16/2017 ALISSON KOVACS MD Ot Z79.899 OTHER ASSISTED (CURRENT) DRUG THERAPY 04/25/2017 ROSALINO SEPULVEDA R BRAIDING MACHINE TENDER Ot J18.9 PNEUMONIA, UNSPECIFIED ORGANISM 04/25/2017 ROSALINO SEPULVEDA R BRAIDING MACHINE TENDER Ot J44.0 CHRONIC OBSTRUCTIVE PULMON DISEASE [facility] 05/02/2017 ROSALINO SEPULVEDA R BRAIDING MACHINE TENDER Ot J18.9 PNEUMONIA, UNSPECIFIED ORGANISM 05/22/2017 ROSALINO SEPULVEDA R BRAIDING MACHINE TENDER Ot J18.9 PNEUMONIA, UNSPECIFIED ORGANISM 05/22/2017 COCOROSALINO R BRAIDING MACHINE TENDER Ot J44.0 CHRONIC OBSTRUCTIVE PULMON DISEASE [facility] 05/26/2017 ROSALINO SEPULVEDA R BRAIDING MACHINE TENDER Ot J18.9 PNEUMONIA, UNSPECIFIED ORGANISM 06/23/2017 COCO ROSALINO R BRAIDING MACHINE TENDER Ot J18.9 PNEUMONIA, UNSPECIFIED ORGANISM 06/23/2017 ROSALINO SEPULVEDA R BRAIDING MACHINE TENDER Ot J18.9 PNEUMONIA, UNSPECIFIED ORGANISM 06/23/2017 ROSALINO SEPULVEDA R BRAIDING MACHINE TENDER Ot J44.0 CHRONIC OBSTRUCTIVE PULMON DISEASE [facility] 06/23/2017 ROSALINO SEPULVEDA R BRAIDING MACHINE TENDER Ot J18.9 PNEUMONIA, UNSPECIFIED ORGANISM 01/20/2018 LUIS ENRIQUE PEREIRA MD Ot E03.9 HYPOTHYROIDISM, UNSPECIFIED 01/20/2018 LUIS ENRIQUE PEREIRA MD Ot F17.210 NICOTINE DEPENDENCE, CIGARETTES, UNCOMPL 01/20/2018 LUIS ENRIQUE PEREIRA MD Ot 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 01/20/2018 LUIS ENRIQUE PEREIRA MD, Ot G47.00 INSOMNIA, UNSPECIFIED 01/20/2018 LUIS ENRIQUE PEREIRA MD Ot H91.90 UNSPECIFIED HEARING LOSS, UNSPECIFIED EA 01/20/2018 LUIS ENRIQUE PEREIRA MD Ot I10 ESSENTIAL (PRIMARY) HYPERTENSION 01/20/2018 LUIS ENRIQUE PEREIRA MD Ot I48.0 PAROXYSMAL ATRIAL FIBRILLATION 01/20/2018 LUIS ENRIQUE PEREIRA MD Ot K59.09 OTHER CONSTIPATION 01/20/2018 LUIS ENRIQUE PEREIRA MD Ot K64.9 UNSPECIFIED HEMORRHOIDS 01/20/2018 LUIS ENRIQUE PEREIRA MD Ot R25.1 TREMOR, UNSPECIFIED 01/20/2018 LUIS ENRIQUE PEREIRA MD Ot R63.4 ABNORMAL WEIGHT LOSS 01/20/2018 LUIS ENRIQUE PEREIRA MD Ot R63.6 UNDERWEIGHT 01/20/2018 LUIS ENRIQUE PEREIRA MD Ot R82.71 BACTERIURIA 01/20/2018 LUIS ENRIQUE PEREIRA MD Ot R94.31 ABNORMAL ELECTROCARDIOGRAM [ECG] [EKG] 01/20/2018 LUIS ENRIQUE PEREIRA MD Ot Z66 DO NOT RESUSCITATE 01/20/2018 LUIS ENRIQUE PEREIRA MD Ot Z68.1 BODY MASS INDEX (BMI) 19.9 OR LESS, ADUL 01/20/2018 LUIS ENRIQUE PEREIRA MD Ot Z82.49 FAMILY HX OF ISCHEM HEART DIS AND OTH DI 01/20/2018 LUIS ENRIQUE PEREIRA MD, Ot Z91.14 PATIENT'S OTHER NONCOMPLIANCE WITH MEDIC Procedures There is no data. Results Test [...] culture - 08/27/16 23:59 Bacterial urine culture [id number] NRG COLONY COUNT >100,000/ML NRG FTX;REPORTABLE SENSITIVITY [...] NR Manual blood basophils/100 leukocytes 0 % [facility] Blood poikilocytosis detection by light microscopy SLIGHT [facility] Bacterial blood culture - 01/08/17 13:19 Bacterial blood culture NG [facility] Influenza virus A and B antigen detection - 01/08/17 13:23 FLU RESULT NEGATIVE FOR INFLUENZA A AND B ANTIGENS BY IA [facility] Bacterial blood culture - 01/08/17 13:49 Bacterial blood culture NG [facility] Complete urinalysis with reflex to culture - [...] culture - 01/08/17 14:17 Bacterial urine culture [id number] NRG COLONY COUNT >100,000/ML NRG FTX;REPORTABLE SENSITIVITY REPORTED AT 1704, 01-09-17 NRG URINE CULTURE RESULTS PLUS NRG Bacterial susceptibility panel - 01/08/17 14:17 Gentamicin [...] susceptibility test by minimum inhibitory concentration - NR Complete blood count (CBC) with automated white [...] culture - 04/12/17 06:53 Bacterial urine culture [id number] NRG COLONY COUNT >100,000/ML NRG FTX;REPORTABLE SENSITIVITY [...] susceptibility test by minimum inhibitory concentration - [facility] Complete blood count (CBC) with automated white [...] 01/19/18 07:35 Myoglobin, serum 78.1 ng/mL 10.0-92.0 THYROID STIMULATING HORMONE - 01/19/18 07:35 THYROID STIMULATING HORMONE 7.44 u[iU]/mL 0.35-4.94 Serum or plasma thyroxine (T4) free measurement (mass/volume) - 01/19/18 07:35 Serum or plasma thyroxine (T4) free measurement (mass/volume) 1.22 ng/dL 0.70-1.48 Complete urinalysis with reflex to culture - 01/19/18 09:50 Urine color determination YELLOW NRG Urine clarity [...] erythrocyte count by microscopy (number/high power field) RARE NRG Automated urine sediment leukocyte count by microscopy (number/high power field ) [HPF] NRG Bacteria detection in urine sediment by light microscopy LARGE NRG Squamous epithelial cells detection in urine sediment by light microscopy 5-10 NRG Crystals detection in urine sediment by light microscopy NONE NRG Casts detection in urine sediment by light microscopy NONE NRG Mucus detection in urine sediment by light microscopy NEGATIVE NRG Complete urinalysis with reflex to culture YES NRG Bacterial urine culture - 01/19/18 09:50 Bacterial urine culture [id number] NRG COLONY COUNT >100,000/ML NRG FTX;REPORTABLE SENSITIVITY REPORTED AT 1631, 3-7-18 NRG URINE CULTURE RESULTS PLUS [facility] Bacterial susceptibility panel - 01/19/18 09:50 Gentamicin susceptibility test by minimum inhibitory concentration < = NRG Trimethoprim/sulfamethoxazole susceptibility test by minimum inhibitoryconcentration S NRG Ampicillin susceptibility test by minimum inhibitory concentration R NRG Tobramycin susceptibility test by minimum inhibitory concentration < = NRG Cefazolin susceptibility test by minimum inhibitory concentration < = NRG Ceftriaxone susceptibility test by minimum inhibitory concentration <= NRG Ampicillin/sulbactam susceptibility test by minimum inhibitory concentration S NRG Piperacillin/tazobactam susceptibility test by minimum inhibitory concentration S NRG Ciprofloxacin susceptibility test by minimum inhibitory concentration <= NRG Meropenem susceptibility test by minimum inhibitory concentration < = NRG Nitrofurantoin susceptibility test by minimum inhibitory concentration 64 NRG Aztreonam susceptibility test by minimum inhibitory concentration < = NRG Extended spectrum beta lactamase (ESBL) producing bacteria susceptibility test by minimum inhibitory concentration - [facility] Bacterial susceptibility panel - 01/19/18 09:50 Gentamicin susceptibility test by minimum inhibitory concentration < = NRG Trimethoprim/sulfamethoxazole susceptibility test by minimum inhibitoryconcentration S NRG Ampicillin susceptibility test by minimum inhibitory concentration > = NRG Tobramycin susceptibility test by minimum inhibitory concentration < = NRG Cefazolin susceptibility test by minimum inhibitory concentration < = NRG Ceftriaxone susceptibility test by minimum inhibitory concentration <= NRG Ampicillin/sulbactam susceptibility test by minimum inhibitory concentration I NRG Piperacillin/tazobactam susceptibility test by minimum inhibitory concentration S NRG Ciprofloxacin susceptibility test by minimum inhibitory concentration <= NRG Meropenem susceptibility test by minimum inhibitory concentration < = NRG Nitrofurantoin susceptibility test by minimum inhibitory concentration 32 NRG Aztreonam susceptibility test by minimum inhibitory concentration < = NRG Extended spectrum beta lactamase (ESBL) producing bacteria susceptibility test by minimum inhibitory concentration - [facility] Methicillin resistant Staphylococcus aureus (MRSA) screening culture - 11:45 Methicillin resistant Staphylococcus aureus (MRSA) screening culture NEG NRG Complete blood count (CBC) with automated white blood cell (WBC) differential - 01/20/18 03:25 Blood leukocytes automated count (number/volume) 5.7 10*3/uL 4.3-11.0 Blood erythrocytes automated count (number/volume) 3.85 10*6/uL 4.35-5.85 Venous blood hemoglobin measurement (mass/volume) 12.5 g/dL 11.5-16.0 Blood hematocrit (volume fraction) 38 % 35-52 Automated erythrocyte mean corpuscular volume 98 [foz_us] 80-99 Automated erythrocyte mean corpuscular hemoglobin (mass per erythrocyte) 33 pg 25-34 Automated erythrocyte mean corpuscular hemoglobin concentration measurement ( mass/volume) 33 g/dL 32-36 Automated erythrocyte distribution width ratio 13.3 % 10.0-14.5 Automated blood platelet count (count/volume) 231 10*3/uL 130-400 Automated blood platelet mean volume measurement 10.3 [foz_us] 7.4-10.4 Automated blood neutrophils/100 leukocytes 57 % 42-75 Automated blood lymphocytes/100 leukocytes 22 % 12-44 Blood monocytes/100 leukocytes 7 % 0-12 Automated blood eosinophils/100 leukocytes 14 % 0-10 Automated blood basophils/100 leukocytes 1 % 0-10 Blood neutrophils automated count (number/volume) 3.2 10*3 1.8-7.8 Blood lymphocytes automated count (number/volume) 1.2 10*3 1.0-4.0 Blood monocytes automated count (number/volume) 0.4 10*3 0.0-1.0 Automated eosinophil count 0.8 10*3/uL 0.0-0.3 Automated blood basophil count (count/volume) 0.0 10*3/uL 0.0-0.1 Whole blood basic metabolic panel - 01/20/18 03:25 Serum or plasma sodium measurement (moles/volume) 141 mmol/L 135-145 Serum or plasma potassium measurement (moles/volume) 4.3 mmol/L 3.6-5.0 Serum or plasma chloride measurement (moles/volume) 109 mmol/L 98-107 Carbon dioxide 21 mmol/L 21-32 Serum or plasma anion gap determination (moles/volume) 11 mmol/L 5-14 Serum or plasma urea nitrogen measurement (mass/volume) 18 mg/dL 7-18 Serum or plasma creatinine measurement (mass/volume) 0.71 mg/dL 0.60-1.30 Serum or plasma urea nitrogen/creatinine mass ratio 25 NRG Serum or plasma creatinine measurement with calculation of estimated glomerular filtration rate > NRG Serum or plasma glucose measurement (mass/volume) 89 mg/dL 70-105 Serum or plasma calcium measurement (mass/volume) 8.5 mg/dL 8.5-10.1 Magnesium - 01/20/18 03:25 Magnesium 2.0 mg/dL 1.8-2.4 Lipid 1996 panel - 01/20/18 03:25 Serum or plasma triglyceride measurement (mass/volume) 60 mg/dL <150 Serum or plasma cholesterol measurement (mass/volume) 197 mg/dL < 200 Serum or plasma cholesterol in HDL measurement (mass/volume) 54 mg/ dL 40-60 Cholesterol in LDL [mass/volume] in serum or plasma by direct assay 124 mg/dL 1-129 Serum or plasma cholesterol in VLDL measurement (mass/volume) 12 mg/ dL 5-40 Encounters ACCT No. Visit Date/Time Discharge Status Pt. Type Provider Facility Loc./Unit Complaint [id number] 01/19/2018 10:02:00 01/20/2018 15:55:00 DIS Inpatient KELLI SMALL, LUIS ENRIQUE Quintero [facility] ICU A-FIB W/RVR [id number] 04/30/2017 12:24:00 04/30/2017 23:59:59 CLS Outpatient ROSALINO SEPULVEDA APRN [facility] RAD PNEUMONIA [id number] 04/23/2017 09:43:00 04/23/2017 23:59:59 CLS Outpatient ROSALINO SEPULVEDA APRN [facility] RAD PNEUMONIA [id number] 04/12/2017 06:20:00 04/12/2017 10:15:00 DIS Emergency ALISSON KOVACS MD [facility] ER CP [id number] 01/08/2017 12:26:00 01/08/2017 16:30:00 DIS Emergency WES NICHOLAS DO [facility] ER FALL/LEFT HIP PAIN [id number] 09/24/2016 11:32:00 09/24/2016 23:59:59 CLS Outpatient JESUS SMALL FACC, KOBY SKINNER CCDS [facility] CARD AVNRT, TOBACCO USER,CHEST DISCOMFORT [id number] 08/27/2016 23:48:00 08/29/2016 10:31:00 DIS Inpatient EMMANUEL SMALL, LB Barnard [facility] 4TH SVT-UTI-HTN [id number] 10/10/2013 15:39:00 10/10/2013 16:36:00 DIS Emergency TORRIE ALCALA APRN [facility] ER LEFT HAND PAIN [id number] 08/28/2016 01:47:00 Document Registration
[2018-04-19] MEDS ORDERED: morphine INJ 10 MG/ML 1ML (SYR OR VIAL) ONE (20:53)
[2018-04-19] MEDS ORDERED: ONDANSETRON 4 MG/2 ML (SDV) Z0FRAN ONE (20:55)
[2018-04-19] MEDS ORDERED: ADENOSINE 6 MG/2 ML (ADENOCARD) VIAL IV ONE (20:55)
[2018-04-19] MEDS ORDERED: DILTIAZEM (Omnicell drip kit) 5 X 25 MG VIALS ONE (20:57)
[2018-04-19] MEDS ORDERED: DILTIAZEM 25 MG/5 ML INJ (CARDIZEM) VIAL ONE (20:57)
[2018-04-19] MEDS ORDERED: morphine INJ 10 MG/ML 1ML (SYR OR VIAL) IVP STA ×2 (20:59→22:21)
[2018-04-19] MEDS ORDERED: NS (IVPB) 250 ML ONE (20:59)
[2018-04-19] MEDS ORDERED: DILTIAZEM 25 MG/5 ML INJ (CARDIZEM) VIAL IVP ONE ×2 (21:00→23:00)
[2018-04-19] MEDS ORDERED: ONDANSETRON 4 MG/2 ML (SDV) Z0FRAN IVP ONE (21:00)
[2018-04-19] MEDS ORDERED: DILTIAZEM INJECTION 125 MG in D5W 100 ML IVPB 100 ML IV SCH (21:00)
--- NOTE | 2018-04-19 21:14 | ED Chest Pain ---
General Stated Complaint: CHEST PAIN Source: patient Exam Limitations: no limitations History of Present Illness Date Seen by Provider: Apr 19, 2018 Time Seen by Provider: 20:52 Initial Comments Here by EMS with report of chest pain onset approximately 30-45 minutes ago. Came on the blue. Associated with nausea and shortness of air. Also associated with sweating. Does have history of atrial fibrillation. Did have reported the field of a high blood pressure although this didn't carry through when EMS arrived. 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 Heart rate in the 80s on EMS arrival. On arrival here to the emergency department she started having significant chest pain and palpitations and nausea and vomiting. She is noted to have heart rate in the 180s. This was an acute change. EMS did administer 324 mg of ASA as well as 2 nitroglycerin sublingual. The first nitroglycerin did help. The second nitroglycerin did not help much. 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 Acidophilus/Bulgaricus 1 Each Tablet, 1 TAB.CHEW PO AC Prescribed by: LUIS ENRIQUE ROLDAN on 01/20/18 0726 Levothyroxine Sodium 125 Mcg Tablet, 125 MCG PO DAILY, (Reported) Lisinopril 10 Mg Tablet, 10 MG PO DAILY, (Reported) Metoprolol Succinate 50 Mg Tab.er.24h, 50 MG PO DAILY, (Reported) Metoprolol Succinate 50 Mg Tab.er.24h, 25 MG PO HS, (Reported) FORGETS TO TAKE BEDTIME DOSE FREQUENTLY TAKES 1/2 (50MG) TABLET Patient Home Medication List Home Medication List Reviewed: Yes Review of Systems Constitutional: see HPI; No chills, No fever EENTM: No Symptoms Reported Respiratory: No Symptoms Reported; Denies Cough; Shortness of Air Cardiovascular: Chest Pain, Edema Gastrointestinal: Denies Abdominal Pain; Nausea, Vomiting Genitourinary: No Symptoms Reported Musculoskeletal: no symptoms reported Skin: no symptoms reported Psychiatric/Neurological: Anxiety; Denies Weakness All Other Systems Reviewed Negative Unless Noted: Yes Past Llxwvmc-Xwjmeb-Hudiqo Hx Past Med/Social Hx: Reviewed Nursing Past Med/Soc Hx Patient Social History Alcohol Use: Occasionally Uses Alcohol Beverage of Choice: Wine Recreational Drug Use: No Smoking Status: Current Everyday Smoker Type Used: Cigarettes 2nd Hand Smoke Exposure: No Recent Hopitalizations: No Immunizations Up To Date Tetanus Booster (TDap): Less than 5yrs Date of Pneumonia Vaccine: Sep 17, 2011 Date of Influenza Vaccine: Sep 25, 2017 Seasonal Allergies Seasonal Allergies: No Past Medical History Surgeries: Yes Appendectomy Respiratory: No Currently Using CPAP: No Currently Using BIPAP: No Cardiac: Yes (SVT) Atrial Fibrillation Neurological: Yes (tremors) 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 Genitourinary: No Gastrointestinal: Yes Chronic Constipation, Hemorrhoids Musculoskeletal: Yes (RIGHT CARPAL TUNNEL--NO SURGERY) Arthritis Endocrine: Yes Hypothyroidsim HEENT: Yes Hearing Impairment: Hard of Hearing Cancer: No Psychosocial: Yes Sleep Difficulties Integumentary: No Blood Disorders: Yes Family Medical History Reviewed Nursing Family Hx No Pertinent Family Hx Physical Exam Vital Signs Vital Signs - First Documented 04/19/18 20:47 Pulse Ox 96 O2 Delivery Nasal Cannula O2 Flow Rate 5.00 Capillary Refill : General Appearance: WD/WN, Anxious, Moderate Distress HEENT: PERRL/EOMI, Pharynx Normal Neck: Non Tender, Supple Respiratory: Lungs Clear, Normal Breath Sounds Cardiovascular: No Murmur, Irregularly Irregular, Tachycardia Gastrointestinal: Non Tender, Soft Extremity: Normal Range of Motion, Non Tender, Pedal Edema (one to 2+ edema to the lower extremities bilateral to the level of mid tibia.) Neurologic/Psychiatric: Alert, Oriented x3 Skin: Normal Color, Warm/Dry Progress/Results/Core Measures Results/Orders Lab Results Laboratory Tests Test 04/19/18 21:30 Range/Units White Blood Count 7.1 4.3-11.0 10^3/uL Red Blood Count 3.27 L 4.35-5.85 10^6/uL Hemoglobin 10.4 L 11.5-16.0 G/DL Hematocrit 32 L 35-52 % Mean Corpuscular Volume 97 80-99 FL Mean Corpuscular Hemoglobin 32 25-34 PG Mean Corpuscular Hemoglobin Concent 33 32-36 G/DL Red Cell Distribution Width 12.7 10.0-14.5 % Platelet Count 268 130-400 10^3/uL Mean Platelet Volume 9.7 7.4-10.4 FL Neutrophils (%) (Auto) 68 42-75 % Lymphocytes (%) (Auto) 18 12-44 % Monocytes (%) (Auto) 9 0-12 % Eosinophils (%) (Auto) 5 0-10 % Basophils (%) (Auto) 0 0-10 % Neutrophils # (Auto) 4.8 1.8-7.8 X 10^3 Lymphocytes # (Auto) 1.3 1.0-4.0 X 10^3 Monocytes # (Auto) 0.6 0.0-1.0 X 10^3 Eosinophils # (Auto) 0.3 0.0-0.3 10^3/uL Basophils # (Auto) 0.0 0.0-0.1 10^3/uL Prothrombin Time 14.8 H 12.2-14.7 SEC INR Comment 1.2 0.8-1.4 Activated Partial Thromboplast Time 26 24-35 SEC D-Dimer 1.42 H 0.00-0.49 UG/ML Sodium Level 142 135-145 MMOL/L Potassium Level 3.9 3.6-5.0 MMOL/L Chloride Level 108 H 98-107 MMOL/L Carbon Dioxide Level 21 21-32 MMOL/L Anion Gap 13 5-14 MMOL/L Blood Urea Nitrogen 27 H 7-18 MG/DL Creatinine 0.77 0.60-1.30 MG/DL Estimat Glomerular Filtration Rate > 60 BUN/Creatinine Ratio 35 Glucose Level 136 H 70-105 MG/DL Calcium Level 8.9 8.5-10.1 MG/DL Magnesium Level 2.1 1.8-2.4 MG/DL Total Bilirubin 0.3 0.1-1.0 MG/DL Aspartate Amino Transf (AST/SGOT) 17 5-34 U/L Alanine Aminotransferase (ALT/SGPT) 11 0-55 U/L Alkaline Phosphatase 75 40-136 U/L Myoglobin 39.1 10.0-92.0 NG/ML Troponin I < 0.30 <0.30 NG/ML Total Protein 6.0 L 6.4-8.2 GM/DL Albumin 3.5 3.2-4.5 GM/DL My Orders Orders - HERMINIO ROBERSON MD Morphine Injection (Morphine Injection (04/19/18 20:53) Ondansetron Injection (Zofran Injectio (04/19/18 20:55) Adenosine Injection (Adenocard Injection (04/19/18 20:55) Diltiazem Injection (Cardizem Injection) (04/19/18 20:57) Diltiazem (Omnicell Drip Kit) (Cardizem (04/19/18 20:57) Ns (Ivpb) (Sodium Chloride 0.9%) (04/19/18 20:59) Cbc With Automated Diff (04/19/18 20:59) Magnesium (04/19/18 20:59) Chest 1 View, Ap/Pa Only (04/19/18 20:59) Ekg Tracing (04/19/18 20:59) Cardiac Profile 1 (04/19/18 20:59) Comprehensive Metabolic Panel (04/19/18 20:59) Myoglobin Serum (04/19/18 20:59) Protime With Inr (04/19/18 20:59) Partial Thromboplastin Time (04/19/18 20:59) O2 (04/19/18 20:59) Monitor-Rhythm Ecg Trace Only (04/19/18 20:59) Lipid Panel (04/20/18 06:00) Saline Lock/Iv-Start (04/19/18 20:59) Fibrin Degradation Products (04/19/18 20:59) Morphine Injection (Morphine Injection (04/19/18 20:59) Ondansetron Injection (Zofran Injectio (04/19/18 21:00) Diltiazem Injection (Cardizem Injection) (04/19/18 21:00) D5w 100 Ml Ivpb (De... W/Diltiazem Injec (04/19/18 21:00) Morphine Injection (Morphine Injection (04/19/18 22:21) Apixaban Tablet (Eliquis Tablet) (04/19/18 23:00) Saline Lock/Iv-Start (04/19/18 22:50) Ns Iv 500 Ml (Sodium Chloride 0.9%) (04/19/18 22:50) Diltiazem Injection (Cardizem Injection) (04/19/18 23:00) Medications Given in ED Current Medications Medications Dose Ordered Sig/Lesly Route Start Time Stop Time Status Last Admin Dose Admin Diltiazem HCl 10 mg ONCE ONCE IVP 04/19/18 21:00 04/19/18 21:01 DC 04/19/18 20:57 10 MG Ondansetron HCl 4 mg ONCE ONCE IVP 04/19/18 21:00 04/19/18 21:01 DC 04/19/18 20:53 4 MG Vital Signs/I&O 04/19/18 20:47 Pulse Ox 96 O2 Delivery Nasal Cannula O2 Flow Rate 5.00 Progress Progress Note : Progress Note Seen and evaluated. Second IV ordered. Labs, EKG and chest x-ray ordered. Morphine 2 mg IV and Zofran 4 mg IV ordered. Heart rate initially 180s sustained we're going to try adenosine but it did slow down some and showed atrial fibrillation with rapid ventricular response. Cardizem initiated with 10 mg bolus and 10 mg an hour drip. Patient is feeling better. Monitor patient. 2129: Cardizem drip increased to 20 mg per hour. 2229: Continue treatment for A. fib RVR in progress. I did discuss the case with Dr. Roldan she accepts patient for admission, inpatient status. To ICU. Patient requests DO NOT RESUSCITATE status. I did discuss the case with Dr. Pastrana at 2248. Patient still has heart rate that goes up to 120s. We will repeat Cardizem bolus 10 mg IV and increase drip to 25 mg per hour. We will give 500 mL normal saline bolus. Patient did receive repeat dosing of morphine 2 at 2 mg IV and 6 mg IV. Her pain is currently a little better. I did discuss all findings concerns with family and patient who agree with plan. Initial ECG Impression Date: Apr 19, 2018 Initial ECG Impression Time: 20:56 Initial ECG Rate: 169 Initial ECG Rhythm: A Fib/Flutter Initial ECG Comparisson: Changed Comment Atrial fibrillation with rapid ventricular response. Rightward axis. Left ventricular hypertrophy. Change from 01/20/18. Interpreted by me. No evidence of ST elevation CT. Departure Communication (Admissions) Time/Spoke to Admitting Phy: 22:30 Time/Spoke to Consulting Phy: 22:48 Impression Primary Impression: Atrial fibrillation with rapid ventricular response Additional Impression: Chest pain Qualified Codes: R07.9 - Chest pain, unspecified Disposition: 09 ADMITTED INPATIENT Condition: Stable Admissions Decision to Admit Reason: Admit from ER (General) Decision to Admit/Date: Apr 19, 2018 Time/Decision to Admit Time: 22:30 Departure-Patient Inst. Referrals: LB BENITEZ MD (PCP/Family) Primary Care Physician HERMINIO ROBERSON MD Apr 19, 2018 21:14
[2018-04-19 21:42] LABS: BASOPHILS % (AUTO) 0 % (0-10); EOSINOPHILS # (AUTO) 0.3 10^3/uL (0.0-0.3); EOSINOPHILS % (AUTO) 5 % (0-10); HEMATOCRIT 32 % (35-52); HEMOGLOBIN 10.4 G/DL (11.5-16.0); LYMPHOCYTES # (AUTO) 1.3 X 10^3 (1.0-4.0); LYMPHOCYTES % (AUTO) 18 % (12-44); MEAN CORPUSCULAR HEMOGLOBIN 32 PG (25-34); MEAN CORPUSCULAR HGB CONC 33 G/DL (32-36); MEAN CORPUSCULAR VOLUME 97 FL (80-99); MEAN PLATELET VOLUME 9.7 FL (7.4-10.4); MONOCYTES # (AUTO) 0.6 X 10^3 (0.0-1.0); MONOCYTES % (AUTO) 9 % (0-12); NEUTROPHILS # (AUTO) 4.8 X 10^3 (1.8-7.8); NEUTROPHILS % (AUTO) 68 % (42-75); PLATELET COUNT 268 10^3/uL (130-400); RED BLOOD COUNT 3.27 10^6/uL (4.35-5.85); RED CELL DISTRIBUTION WIDTH 12.7 % (10.0-14.5); WHITE BLOOD COUNT 7.1 10^3/uL (4.3-11.0)
--- NOTE | 2018-04-19 21:45 | Diagnostic Imaging Report ---
INDICATION: Shortness of breath. Comparison with 01/19/2018. FINDINGS: The lungs show mild hyperaeration. Mild interstitial lung disease is present. There are no acute infiltrates. Heart mildly enlarged. The aorta is ectatic without obvious aneurysm. There are no pleural effusions. No consolidated infiltrates. No pneumothorax. IMPRESSION: 1. There has been slight increase in cardiac size with increasing interstitial infiltrates suggesting mild pulmonary edema. There is some air trapping present as well. Dictated by: Dictated on workstation # [id number]
[2018-04-19 21:53] LABS: INR 1.2 (0.8-1.4); PROTHROMBIN TIME PATIENT 14.8 SEC (12.2-14.7)
[2018-04-19 22:02] LABS: ALANINE AMINOTRANSFERASE 11 U/L (0-55); ALBUMIN 3.5 GM/DL (3.2-4.5); ALKALINE PHOSPHATASE 75 U/L (40-136); BILIRUBIN,TOTAL 0.3 MG/DL (0.1-1.0); BUN/CREATININE RATIO 35; CALCIUM 8.9 MG/DL (8.5-10.1); CARBON DIOXIDE 21 MMOL/L (21-32); CHLORIDE 108 MMOL/L (98-107); CREATININE SERUM 0.77 MG/DL (0.60-1.30); GFR ESTIMATED > 60; GLUCOSE 136 MG/DL (70-105); MAGNESIUM 2.1 MG/DL (1.8-2.4); POTASSIUM 3.9 MMOL/L (3.6-5.0); SODIUM 142 MMOL/L (135-145)
[2018-04-19 22:09] LABS: MYOGLOBIN SERUM 39.1 NG/ML (10.0-92.0)
[2018-04-19] MEDS ORDERED: NS IV 500 ML 500 ML IV ONE (22:50)
[2018-04-19] MEDS ORDERED: APIXABAN 2.5 MG (ELIQUIS) TABLET PO ONE (23:00)
[2018-04-20] VITALS (43 sets, daily range): BP systolic 111–156; BP diastolic 57–103
[2018-04-20] MEDS ORDERED: NITROGLYCERIN 0.4 MG SL TABS BTL 25'S SL PRN (01:15)
[2018-04-20] MEDS: ONDANSETRON 4 MG/2 ML (SDV) Z0FRAN IV PRN ×4 (01:25→18:10)
[2018-04-20] MEDS: morphine INJ 4 MG/ML 1 ML (VIAL/SYRINGE) IV PRN ×8 (01:25→17:26)
[2018-04-20] MEDS: NS IV 1000 ML 1,000 ML IV SCH ×2 (01:25→15:56)
[2018-04-20] MEDS: DILTIAZEM 125 MG/D5W 100 ML DRIP IV SCH ×4 (02:55→08:24)
[2018-04-20 04:18] LABS: BASOPHILS % (AUTO) 0 % (0-10); EOSINOPHILS % (AUTO) 0 % (0-10); HEMATOCRIT 31 % (35-52); HEMOGLOBIN 10.3 G/DL (11.5-16.0); LYMPHOCYTES # (AUTO) 0.6 X 10^3 (1.0-4.0); LYMPHOCYTES % (AUTO) 8 % (12-44); MEAN CORPUSCULAR HEMOGLOBIN 32 PG (25-34); MEAN CORPUSCULAR HGB CONC 33 G/DL (32-36); MEAN CORPUSCULAR VOLUME 97 FL (80-99); MEAN PLATELET VOLUME 10.5 FL (7.4-10.4); MONOCYTES # (AUTO) 0.4 X 10^3 (0.0-1.0); MONOCYTES % (AUTO) 6 % (0-12); NEUTROPHILS # (AUTO) 6.3 X 10^3 (1.8-7.8); NEUTROPHILS % (AUTO) 86 % (42-75); PLATELET COUNT 241 10^3/uL (130-400); RED BLOOD COUNT 3.18 10^6/uL (4.35-5.85); RED CELL DISTRIBUTION WIDTH 12.4 % (10.0-14.5); WHITE BLOOD COUNT 7.3 10^3/uL (4.3-11.0)
[2018-04-20 04:37] LABS: BUN/CREATININE RATIO 37; CALCIUM 8.5 MG/DL (8.5-10.1); CARBON DIOXIDE 20 MMOL/L (21-32); CHLORIDE 109 MMOL/L (98-107); CREATININE SERUM 0.67 MG/DL (0.60-1.30); GFR ESTIMATED > 60; GLUCOSE 144 MG/DL (70-105); PHOSPHORUS 3.9 MG/DL (2.3-4.7); SODIUM 140 MMOL/L (135-145)
[2018-04-20 04:39] LABS: CHOLESTEROL 128 MG/DL (< 200); HDL CHOLESTEROL 56 MG/DL (40-60); TRIGLYCERIDES 38 MG/DL (<150); VLDL CHOLESTEROL 8 MG/DL (5-40)
[2018-04-20] MEDS: KCL 20 MEQ TAB (K-DUR) PO SCH (05:50)
[2018-04-20] MEDS: POTASSIUM CL 10MEQ/50ML IVPB 50 ML IV SCH (05:50)
[2018-04-20] MEDS: MAGNESIUM 1 GM/100 ML IVPB 100 ML IV SCH (05:50)
--- NOTE | 2018-04-20 08:00 | Pulmonary Consultation ---
History of Present Illness History of Present Illness Date of Consultation 04/20/18 07:55 Time Seen by Provider: 07:55 Date of Admission History of Present Illness 87yo with hx of Afib presented to ED secondary to acute CP that started 30- 45min prior to arrival and also associated with nausea, palpitations, diaphoresis, and SOB. EMS gave ASA, and 2nitro SL with improvement after first nitro. PT was found to have Afib RVR with rate of 180's. Pt was placed on a cardizem gtt and admitted to ICU for close observation. I am consulted for ICU management. PT is currently a DNR. Allergies and Home Medications Allergies Coded Allergies: No Known Drug Allergies (Verified , 05/10/09) Home Medications Apixaban 2.5 Mg Tablet, 2.5 MG PO BID, (Reported) Diltiazem HCl 240 Mg Cap.er.24h, 240 MG PO DAILY, (Reported) Diltiazem HCl 180 Mg Cap.er.24h, 360 MG PO DAILY Prescribed by: FUNMI LANDIN on 04/22/18 0934 L. Acidophilus/Bulgaricus 1 Each Tablet, 1 TAB.CHEW PO AC, (Reported) Levothyroxine Sodium 112 Mcg Tablet, 112 MCG PO DAILY, (Reported) Lisinopril 10 Mg Tablet, 10 MG PO DAILY, (Reported) Metoprolol Succinate 50 Mg Tab.er.24h, 50 MG PO DAILY, (Reported) Metoprolol Succinate 50 Mg Tab.er.24h, 25 MG PO HS, (Reported) TAKE 1/2 (50MG) TABLET Past Ycveqoi-Zojkco-Wvamay Hx Past Med/Social Hx: Reviewed Nursing Past Med/Soc Hx Patient Social History Alcohol Use: Occasionally Uses Number of Drinks Today: Alcohol Beverage of Choice: Wine Recreational Drug Use: No Smoking Status: Current Everyday Smoker Type Used: Cigarettes 2nd Hand Smoke Exposure: No Recent Foreign Travel: No Contact w/Someone Who Travel: No Recent Infectious Disease Expo: No Recent Hopitalizations: No Physical Abuse: No Sexual Abuse: No Immunizations Up To Date Tetanus Booster (TDap): Less than 5yrs Date of Pneumonia Vaccine: Sep 17, 2015 Date of Influenza Vaccine: Sep 25, 2017 Seasonal Allergies Seasonal Allergies: No Past Medical History Surgeries: Yes Appendectomy Respiratory: No Currently Using CPAP: No Currently Using BIPAP: No Cardiac: Yes (SVT) Atrial Fibrillation Neurological: Yes (tremors) 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 Genitourinary: No Gastrointestinal: Yes Chronic Constipation, Hemorrhoids Musculoskeletal: Yes (RIGHT CARPAL TUNNEL--NO SURGERY) Arthritis Endocrine: Yes Hypothyroidsim HEENT: Yes Hearing Impairment: Hard of Hearing Cancer: No Psychosocial: Yes Sleep Difficulties Nursing Suicide Risk Score: 0 Integumentary: No Blood Disorders: Yes Family Medical History Reviewed Nursing Family Hx No Pertinent Family Hx Review of Systems Time Seen by Provider: 14:13 Exam Exam Vital Signs Date Time Temp Pulse Resp B/P (MAP) Pulse Ox O2 Delivery O2 Flow Rate FiO2 04/20/18 06:30 75 28 120/63 (82) 91 Nasal Cannula 2.00 04/20/18 06:00 80 26 114/71 (85) 96 Nasal Cannula 2.00 04/20/18 05:30 89 25 114/65 (81) 94 Nasal Cannula 2.00 04/20/18 05:00 80 17 115/77 (90) 97 Nasal Cannula 2.00 04/20/18 04:30 82 14 117/63 (81) 97 Nasal Cannula 2.00 04/20/18 04:00 96 Nasal Cannula 2.00 04/20/18 04:00 80 18 113/65 (81) 98 Nasal Cannula 2.00 04/20/18 03:30 89 19 111/65 (80) 96 Nasal Cannula 2.00 04/20/18 03:00 72 16 122/69 (86) 97 Nasal Cannula 2.00 04/20/18 02:30 87 15 123/73 (90) 98 Nasal Cannula 2.00 04/20/18 02:00 90 15 130/88 (102) 97 Nasal Cannula 2.00 04/20/18 01:45 79 17 121/67 (85) 96 Nasal Cannula 2.00 04/20/18 01:30 80 15 119/68 (85) 95 Nasal Cannula 2.00 04/20/18 01:15 86 12 135/73 (93) 97 Nasal Cannula 2.00 04/20/18 01:00 82 15 123/75 (91) 96 Nasal Cannula 2.00 04/20/18 01:00 82 04/20/18 00:45 85 16 131/77 (95) 96 Nasal Cannula 2.00 04/20/18 00:30 81 14 123/75 (91) 95 Nasal Cannula 2.00 04/20/18 00:15 84 15 121/67 (85) 90 Nasal Cannula 2.00 04/20/18 00:00 96 Nasal Cannula 2.00 04/20/18 00:00 97.4 90 20 127/76 (93) 96 Nasal Cannula 2.00 04/19/18 23:30 88 14 126/73 98 Nasal Cannula 04/19/18 20:47 96 Nasal Cannula 5.00 04/19/18 20:47 97.7 180 18 103/92 (96) 96 Nasal Cannula 5.00 I & O 04/20/18 07:00 Intake Total 100 ml Output Total 0 ml Balance 100 ml General Appearance: WD/WN, Anxious, Moderate Distress HEENT: PERRL/EOMI, Pharynx Normal Neck: Non Tender, Supple Respiratory: Lungs Clear, Normal Breath Sounds Cardiovascular: No Murmur, Irregularly Irregular, Tachycardia Capillary Refill: Less Than 3 Seconds Extremity: Normal Range of Motion, Non Tender, Pedal Edema (one to 2+ edema to the lower extremities bilateral to the level of mid tibia.) Neurologic/Psychiatric: Alert, Oriented x3 Skin: Normal Color, Warm/Dry Results Lab Laboratory Tests 04/19/18 21:30 04/20/18 03:30 Assessment/Plan Assessment/Plan Afib RVR -Cardizem gtt- is now off -Cardiology following Tobacco use -Education Hypothyroid-- iatrogenic hyperthyroid TSH is 0.1 -Hold Synthroid for now will let hospitalist continue to follow. Anemia -Monitor -Check occult stool RAMOS HARKINS DO Apr 20, 2018 08:00
[2018-04-20] MEDS: APIXABAN 2.5 MG (ELIQUIS) TABLET PO SCH ×2 (08:15→20:56)
--- NOTE | 2018-04-20 08:17 | Diagnostic Imaging Report ---
INDICATION: Dyspnea. Comparison made with prior examination 04/19/2018. FINDINGS: There is cardiomegaly. There is some left basilar atelectasis and/or pneumonitis. There is a left pleural effusion. There is no pneumothorax. Mediastinum is unremarkable. IMPRESSION: Left basilar atelectasis and/or pneumonitis and small left pleural effusion. Cardiomegaly. Dictated by: Dictated on workstation # [id number]
[2018-04-20] MEDS: ASPIRIN E.C. 81 MG (ECOTRIN) TAB PO SCH (08:18)
--- NOTE | 2018-04-20 09:00 | Consultation-Cardiology ---
HPI-Cardiology Cardiology Consultation: Date of Consultation 04/20/18 Time Seen by Provider: 08:30 Date of Admission 04-19-18 Attending Physician Luis Enrique Roldan MD Admitting Physician Nick Lau MD Consulting Physician Marilee Durham MD HPI: Chief Complaint: Chest pain A-fib with RVR Ms. Mello is an 87 year old female admitted to ICU 8 from the ED. She reports yesterday morning she was sitting on the side of the bed visiting with her daughter. She reports she was beginning to have sharp, stabbing chest pains in the middle of her chest which gradually became worse. She reports associated nausea and a sensation of "flip, flopping" of her heart. She reports the pain and nausea became unbearable and EMS was summoned. She denies any SOB at the time. She denies any syncope or near syncope. She reports the chest discomfort has resolved at this time. She is continuing to report nausea. No c /o diarrhea. She reports chronic constipation. Review of Systems-Cardiology Review of Systems Constitutional: chills; No fever; tiredness Eyes: No vision change Ears/Nose/Throat: No epistaxis, No recent hearing loss Respiratory: As described under HPI Cardiovascular: As described under HPI Gastrointestinal: constipation; No diarrhea; nausea; No vomiting Genitourinary: No dysuria, No hematuria Musculoskeletal: no symptoms reported Skin: No rash Psychiatric/Neurological: No seizure, No focal weakness, No syncope Hematologic: No bleeding abnormalities All Other Systems Reviewed Negative Unless Noted: Yes OMF-Stxomz-Gfsugh Hx Patient Social History Alcohol Use: Occasionally Uses Recreational Drug Use: No Smoking Status: Current Everyday Smoker Type Used: Cigarettes 2nd Hand Smoke Exposure: No Recent Foreign Travel: No Recent Infectious Disease Expo: No Physical Abuse Screen: No Sexual Abuse: No Immunizations Up To Date Tetanus Booster (TDap): Less than 5yrs Date of Pneumonia Vaccine: Sep 17, 2015 Date of Influenza Vaccine: Sep 25, 2017 Past Medical History PMH As described under Assessment. Family Medical History Family Medical History: Her parents of [place], mother in her 80s, father in his 70s Allergies and Home Medications Allergies Coded Allergies: No Known Drug Allergies (Verified , 05/10/09) Home Medications Apixaban 2.5 Mg Tablet, 2.5 MG PO BID, (Reported) Diltiazem HCl 240 Mg Cap.er.24h, 240 MG PO DAILY, (Reported) L. Acidophilus/Bulgaricus 1 Each Tablet, 1 TAB.CHEW PO AC, (Reported) Levothyroxine Sodium 112 Mcg Tablet, 112 MCG PO DAILY, (Reported) Lisinopril 10 Mg Tablet, 10 MG PO DAILY, (Reported) Metoprolol Succinate 50 Mg Tab.er.24h, 50 MG PO DAILY, (Reported) Metoprolol Succinate 50 Mg Tab.er.24h, 25 MG PO HS, (Reported) TAKE 1/2 (50MG) TABLET Physical Exam-Cardiology Physical Exam Vital Signs/I&O 04/20/18 04/20/18 04/20/18 04/21/18 21:00 22:00 23:00 00:00 Temp 98.7 Pulse 116 81 88 89 Resp 10 17 18 19 B/P (MAP) 136/86 (103) 128/66 (86) 130/103 (112) 140/78 (98) Pulse Ox 95 94 97 99 O2 Delivery Nasal Cannula Nasal Cannula Nasal Cannula Nasal Cannula O2 Flow Rate 2.00 2.00 2.00 2.00 04/21/18 04/21/18 04/21/18 04/21/18 00:00 01:00 01:00 02:00 Pulse 94 94 108 Resp 19 20 B/P (MAP) 136/77 (96) 135/79 (97) Pulse Ox 95 97 95 O2 Delivery Nasal Cannula Nasal Cannula Nasal Cannula O2 Flow Rate 2.00 2.00 2.00 04/21/18 04/21/18 04/21/18 04/21/18 03:00 04:00 04:00 05:00 Temp 98.2 Pulse 86 86 80 Resp 14 21 21 B/P (MAP) 128/75 (92) 139/79 (99) 130/69 (89) Pulse Ox 96 97 95 97 O2 Delivery Nasal Cannula Nasal Cannula Nasal Cannula Nasal Cannula O2 Flow Rate 2.00 2.00 2.00 2.00 04/21/18 04/21/18 04/21/18 06:00 06:22 08:00 Temp 98.7 Pulse 93 Resp 21 B/P (MAP) 130/71 (90) Pulse Ox 96 O2 Delivery Nasal Cannula Room Air O2 Flow Rate 2.00 04/21/18 00:00 Intake Total 1225 ml Output Total 550 ml Balance 675 ml Capillary Refill : Less Than 3 Seconds Constitutional: AAO x 3, other (frail) HEENT: PERRL, hearing is well preserved, oral hygience is good Neck: No carotid bruit; carotid pulses are 2 + bilaterally Respiratory: No accessory muscle use, No respiratory distress; chest expansion is symmetric, chest is bilaterally symmetric, lungs clear to auscultation Cardiovascular: irregularly irregular; No JVD; S1 and S2, systolic murmur Gastrointestinal: soft, round; No distended; audible bowel sounds Extremities: no lower extremity edema bilateral Neurologic/Psychiatric: grossly intact Skin: No rash, No ulcerations Data Review Labs Laboratory Tests 04/21/18 03:25: White Blood Count 5.8, Red Blood Count 2.79L, Hemoglobin 8.7L, Hematocrit 27L, Mean Corpuscular Volume 98, Mean Corpuscular Hemoglobin 31, Mean Corpuscular Hemoglobin Concent 32, Red Cell Distribution Width 12.7, Platelet Count 206, Mean Platelet Volume 10.2, Neutrophils (%) (Auto) 79H, Lymphocytes (%) (Auto) 8L , Monocytes (%) (Auto) 12, Eosinophils (%) (Auto) 1, Basophils (%) (Auto) 0, Neutrophils # (Auto) 4.5, Lymphocytes # (Auto) 0.5L, Monocytes # (Auto) 0.7, Eosinophils # (Auto) 0.1, Basophils # (Auto) 0.0, Sodium Level 138, Potassium Level 4.0, Chloride Level 108H, Carbon Dioxide Level 22, Anion Gap 8, Blood Urea Nitrogen 18, Creatinine 0.58L, Estimat Glomerular Filtration Rate > 60, BUN /Creatinine Ratio 31, Glucose Level 121H, Calcium Level 8.3L, Phosphorus Level 2.3, Magnesium Level 1.8, Total Bilirubin 0.5, Aspartate Amino Transf (AST/SGOT ) 16, Alanine Aminotransferase (ALT/SGPT) 11, Alkaline Phosphatase 56, Total Protein 5.5L, Albumin 3.1L Radiology NAME: TRU MELLO MED REC#: [id number] PT STATUS: ADM IN : 1930 PHYSICIAN: LUIS ENRIQUE ROLDAN MD ADMIT DATE: 04/19/18/ICU Signed Date of Exam: 04/20/18 CHEST 1 VIEW, AP/PA ONLY INDICATION: Dyspnea. Comparison made with prior examination 04/19/2018. FINDINGS: There is cardiomegaly. There is some left basilar atelectasis and/or pneumonitis. There is a left pleural effusion. There is no pneumothorax. Mediastinum is unremarkable. IMPRESSION: Left basilar atelectasis and/or pneumonitis and small left pleural effusion. Cardiomegaly. Dictated by: Dictated on workstation # [id number] Dict: 04/20/18 0759 Trans: 04/20/18 0830 Interpreted by: BERNICE FRASER MD Electronically signed by: BERNICE FRASER MD 04/20/18 0830 ECG Impression ECG Comment A-fib A/P-Cardiology Assessment/Admission Diagnosis A-fib with RVR - rate improved with IV Diltiazem H/O PAF first documented on this admission of 01/19/18 Epigastric discomfort of undetermined etiology Nausea of undetermined etiology OAC with Eliquis for stroke prophylaxis Abnormal ECG on which ischemia cannot be excluded (01/19/18). No clinical evidence of ACS Echo of 01/19/18: LVEF 70-75%, mild to mod biatrial enlargement, AoV sclerosis w/ o stenosis, PASP 40-45 mmHg H/o PSVT, short RP tachycardia, likely AVNRT, diagnosed during a hosp adm of Aug 2016 at [place], [place] MPI of September 24, 2016 showed no evidence of myocardial ischemia or infarction. Normal regional wall motion LVEF 73%. Normal LV cavity size Hypertension Chronic tobacco use Hypothyroidism, treated with thyroid replacement therapy, but she has been intermittently noncompliant Chronic insomnia Low body wgt. Reports slow wgt loss over several years Chronic head tremor, followed by her pcp H/o carpal tunnel syndrome Clinical Quality Measures AMI/AHF: ASA po Prior to arrival: Yes DVT/VTE Risk/Contraindication: Risk Factor Score Per Nursin RFS Level Per Nursing on Admit: 3=High DWAYNE COLLINS Apr 20, 2018 09:00
[2018-04-20] MEDS ORDERED: DILTIAZEM 180 MG (CARDIZEM CD) CAP PO NR (09:30)
[2018-04-20] MEDS ORDERED: PANTOPRAZOLE 40 MG/10 ML (PROTONIX) VIAL IV ONE (09:45)
[2018-04-20] MEDS ORDERED: ACID1TAB PO (09:52)
[2018-04-20] MEDS ORDERED: APIX2.5T PO (09:52)
[2018-04-20] MEDS ORDERED: DILT240C PO (09:52)
[2018-04-20] MEDS ORDERED: LEVO112T55 PO (09:52)
--- NOTE | 2018-04-20 15:03 | History & Physical-Hospitalist ---
History of Present Illness HPI/Chief Complaint The patient is an 87-year-old white female who presented with evidence of atrial fibrillation and rapid ventricular response. She has had this in the past and the family recognize that she was in a rapid rate again. They also have concerns that she is not doing well living on her own. They believe that she has not been taking her medications on a regular basis. That would include the Cardizem which she uses for rate control. She appears anxious and also complains of pain in her left lower rib cage. Date Seen 04/20/18 Time Seen by Provider: 14:50 Attending Physician Eileen Roldan MD PCP Nick Lau MD Referring Physician Date of Admission Apr 19, 2018 at 22:57 Home Medications & Allergies Home Medications Reviewed patient Home Medication Reconciliation performed by pharmacy medication reconciliations technician automated equipment and/or nursing. Patients Allergies have been reviewed. Allergies Allergies Coded Allergies No Known Drug Allergies (Verified05/10/09) Past Bonmqrj-Pggmje-Hcxsor Hx Past Med/Social Hx: Reviewed Nursing Past Med/Soc Hx Patient Social History Alcohol Use: Occasionally Uses Number of Drinks Today: Alcohol Beverage of Choice: Wine Recreational Drug Use: No Smoking Status: Current Everyday Smoker Type Used: Cigarettes 2nd Hand Smoke Exposure: No Physical Abuse Screen: No Sexual Abuse: No Recent Foreign Travel: No Contact w/other who traveled: No Recent Hopitalizations: No Recent Infectious Disease Expo: No Immunizations Up To Date Tetanus Booster (TDap): Less than 5yrs Date of Pneumonia Vaccine: Sep 17, 2015 Date of Influenza Vaccine: Sep 25, 2017 Seasonal Allergies Seasonal Allergies: No Past Medical History Surgeries: Appendectomy Currently Using CPAP: No Currently Using BIPAP: No Cardiac: Atrial Fibrillation Reproductive: Yes Hysterectomy Gastrointestinal: Chronic Constipation, Hemorrhoids Musculoskeletal: Arthritis Endocrine: Hypothyroidsim Hearing Impairment: Hard of Hearing Psychosocial: Sleep Difficulties History of Blood Disorders: Yes Family History Reviewed Nursing Family Hx No Pertinent Family Hx Review of Systems Constitutional: see HPI EENTM: no symptoms reported Respiratory: no symptoms reported Cardiovascular: palpitations Gastrointestinal: abdominal pain (epigastric) Genitourinary: no symptoms reported Musculoskeletal: muscle weakness, other (significant weight loss over the last few years) Skin: no symptoms reported Psychiatric/Neurological: Depressed Physical Exam Physical Exam Vital Signs Capillary Refill : Less Than 3 Seconds General Appearance: Mild Distress Eyes: Bilateral Eye Normal Inspection HEENT: Normal ENT Inspection Neck: Normal Inspection Respiratory: Chest Non Tender, Lungs Clear, Normal Breath Sounds, No Accessory Muscle Use, No Respiratory Distress Cardiovascular: Irregularly Irregular Gastrointestinal: Normal Bowel Sounds, No Organomegaly, No Pulsatile Mass, Non Tender, Soft Extremity: Normal Capillary Refill Neurologic/Psychiatric: Alert, Oriented x3, No Motor/Sensory Deficits, Normal Mood/Affect Results Results/Procedures Labs Patient resulted labs reviewed. Assessment/Plan Admission Diagnosis Atrial fibrillation with rapid ventricular response. 2.weight loss. Admission Status: Inpatient Order (span 2 midnights) Reason for Inpatient Admission: Stabilization of heart rate Clinical Quality Measures AMI/AHF: ASA po Prior to arrival: Yes DVT/VTE Risk/Contraindication: Risk Factor Score Per Nursin RFS Level Per Nursing on Admit: 3=High ALISSON KOVACS MD Apr 20, 2018 15:03
[2018-04-20] MEDS: LACTOBACILLUS Acidoph/Bulgar (LACTINEX/FLORANEX) TAB PO SCH (16:02)
[2018-04-20] MEDS: SUCRALFATE 1 GM (CARAFATE) TAB PO SCH ×2 (16:02→20:56)
--- NOTE | 2018-04-20 18:30 | Consultation-Cardiology ---
HPI-Cardiology Cardiology Consultation: Date of Consultation 04/20/18 Time Seen by Provider: 08:30 Date of Admission 04/19/18 Attending Physician Eileen Roldan MD Admitting Physician Nick Lau MD Consulting Physician KOBY LEE MD, MA, FACP, FACC, [facility] [place], [place], CCDS HPI: Chief Complaint: Chest pain A-fib with RVR Ms. Ortiz is an 87 year old female admitted to ICU 8 from the ED. She reports yesterday morning she was sitting on the side of the bed visiting with her daughter. She reports she was beginning to have sharp, stabbing chest pains in the middle of her chest which gradually became worse. She reports associated nausea and a sensation of "flip, flopping" of her heart. She reports the pain and nausea became unbearable and EMS was summoned. She denies any SOB at the time. She denies any syncope or near syncope. She reports the chest discomfort has resolved at this time. She is continuing to report nausea. No c /o diarrhea. She reports chronic constipation. Review of Systems-Cardiology Review of Systems Constitutional: chills; No fever; tiredness Eyes: No vision change Ears/Nose/Throat: No epistaxis, No recent hearing loss Respiratory: As described under HPI Cardiovascular: As described under HPI Gastrointestinal: constipation; No diarrhea; nausea; No vomiting Genitourinary: No dysuria, No hematuria Musculoskeletal: no symptoms reported Skin: No rash Psychiatric/Neurological: No seizure, No focal weakness, No syncope Hematologic: No bleeding abnormalities All Other Systems Reviewed Negative Unless Noted: Yes UKK-Oyacfa-Hrblkz Hx Patient Social History Alcohol Use: Occasionally Uses Recreational Drug Use: No Smoking Status: Current Everyday Smoker Type Used: Cigarettes 2nd Hand Smoke Exposure: No Recent Foreign Travel: No Recent Infectious Disease Expo: No Physical Abuse Screen: No Sexual Abuse: No Immunizations Up To Date Tetanus Booster (TDap): Less than 5yrs Date of Pneumonia Vaccine: Sep 17, 2015 Date of Influenza Vaccine: Sep 25, 2017 Past Medical History PMH As described under Assessment. Family Medical History Family Medical History: Her parents of [place], mother in her 80s, father in his 70s Allergies and Home Medications Allergies Coded Allergies: No Known Drug Allergies (Verified , 05/10/09) Home Medications Apixaban 2.5 Mg Tablet, 2.5 MG PO BID, (Reported) Diltiazem HCl 240 Mg Cap.er.24h, 240 MG PO DAILY, (Reported) L. Acidophilus/Bulgaricus 1 Each Tablet, 1 TAB.CHEW PO AC, (Reported) Levothyroxine Sodium 112 Mcg Tablet, 112 MCG PO DAILY, (Reported) Lisinopril 10 Mg Tablet, 10 MG PO DAILY, (Reported) Metoprolol Succinate 50 Mg Tab.er.24h, 50 MG PO DAILY, (Reported) Metoprolol Succinate 50 Mg Tab.er.24h, 25 MG PO HS, (Reported) TAKE 1/2 (50MG) TABLET Patient Home Medication List Home Medication List Reviewed: Yes Physical Exam-Cardiology Physical Exam Vital Signs/I&O 04/20/18 04/20/18 04/20/18 04/20/18 06:30 07:00 07:00 07:30 Pulse 75 72 87 84 Resp 28 37 42 B/P (MAP) 120/63 (82) 118/65 (82) 118/60 (79) Pulse Ox 91 96 97 O2 Delivery Nasal Cannula Nasal Cannula Nasal Cannula O2 Flow Rate 2.00 2.00 2.00 04/20/18 04/20/18 04/20/18 04/20/18 08:00 08:15 08:30 08:46 Temp 96.9 Pulse 77 78 Resp 23 21 B/P (MAP) 120/64 (82) 112/70 (84) Pulse Ox 96 98 O2 Delivery Nasal Cannula Nasal Cannula Nasal Cannula Nasal Cannula O2 Flow Rate 2.00 2.00 2.00 2.00 04/20/18 04/20/18 04/20/18 04/20/18 09:00 09:30 10:00 10:30 Pulse 74 68 77 76 Resp 24 12 12 14 B/P (MAP) 116/57 (76) 134/68 (90) 125/68 (87) 121/76 (91) Pulse Ox 97 95 97 94 O2 Delivery Nasal Cannula Nasal Cannula Nasal Cannula Nasal Cannula O2 Flow Rate 2.00 2.00 2.00 2.00 04/20/18 04/20/18 04/20/18 04/20/18 11:00 11:30 11:30 12:00 Pulse 75 83 79 Resp 16 14 16 B/P (MAP) 130/65 (86) 133/72 (92) 125/73 (90) Pulse Ox 98 98 99 97 O2 Delivery Nasal Cannula Nasal Cannula Nasal Cannula Nasal Cannula O2 Flow Rate 2.00 2.00 2.00 2.00 04/20/18 04/20/18 04/20/18 04/20/18 12:30 12:30 12:30 13:00 Temp 97.0 Pulse 81 78 Resp 48 B/P (MAP) 127/81 (96) Pulse Ox 95 O2 Delivery Nasal Cannula Nasal Cannula Nasal Cannula O2 Flow Rate 2.00 2.00 2.00 04/20/18 04/20/18 04/20/18 04/20/18 13:00 13:30 14:00 14:30 Pulse 70 79 85 80 Resp 13 22 35 21 B/P (MAP) 132/69 (90) 134/71 (92) 148/71 (96) 133/70 (91) Pulse Ox 96 97 97 97 O2 Delivery Nasal Cannula Nasal Cannula Nasal Cannula Nasal Cannula O2 Flow Rate 2.00 2.00 2.00 2.00 04/20/18 04/20/18 04/20/18 15:07 16:37 16:37 Temp 99.8 Pulse 81 Resp 19 B/P (MAP) 129/73 (91) Pulse Ox 97 O2 Delivery Nasal Cannula Nasal Cannula O2 Flow Rate 2.00 2.00 Capillary Refill : Less Than 3 Seconds Constitutional: AAO x 3, other (frail) HEENT: PERRL, hearing is well preserved, oral hygience is good Neck: No carotid bruit; carotid pulses are 2 + bilaterally Respiratory: No accessory muscle use, No respiratory distress; chest expansion is symmetric, chest is bilaterally symmetric, lungs clear to auscultation Cardiovascular: irregularly irregular; No JVD; S1 and S2, systolic murmur Gastrointestinal: soft, round; No distended; audible bowel sounds Extremities: no lower extremity edema bilateral Neurologic/Psychiatric: grossly intact Skin: No rash, No ulcerations Data Review Labs Laboratory Tests 04/19/18 21:30: White Blood Count 7.1, Red Blood Count 3.27L, Hemoglobin 10.4L, Hematocrit 32L, Mean Corpuscular Volume 97, Mean Corpuscular Hemoglobin 32, Mean Corpuscular Hemoglobin Concent 33, Red Cell Distribution Width 12.7, Platelet Count 268, Mean Platelet Volume 9.7, Neutrophils (%) (Auto) 68, Lymphocytes (%) (Auto) 18, Monocytes (%) (Auto) 9, Eosinophils (%) (Auto) 5, Basophils (%) (Auto) 0, Neutrophils # (Auto) 4.8, Lymphocytes # (Auto) 1.3, Monocytes # (Auto) 0.6, Eosinophils # (Auto) 0.3, Basophils # (Auto) 0.0, Prothrombin Time 14.8H, INR Comment 1.2, Activated Partial Thromboplast Time 26, D-Dimer 1.42H, Sodium Level 142, Potassium Level 3.9, Chloride Level 108H, Carbon Dioxide Level 21, Anion Gap 13, Blood Urea Nitrogen 27H, Creatinine 0.77, Estimat Glomerular Filtration Rate > 60, BUN/Creatinine Ratio 35, Glucose Level 136H, Calcium Level 8.9, Magnesium Level 2.1, Total Bilirubin 0.3, Aspartate Amino Transf (AST /SGOT) 17, Alanine Aminotransferase (ALT/SGPT) 11, Alkaline Phosphatase 75, Myoglobin 39.1, Troponin I < 0.30, Total Protein 6.0L, Albumin 3.5 04/20/18 03:30: White Blood Count 7.3, Red Blood Count 3.18L, Hemoglobin 10.3L, Hematocrit 31L, Mean Corpuscular Volume 97, Mean Corpuscular Hemoglobin 32, Mean Corpuscular Hemoglobin Concent 33, Red Cell Distribution Width 12.4, Platelet Count 241, Mean Platelet Volume 10.5H, Neutrophils (%) (Auto) 86H, Lymphocytes (%) (Auto) 8L, Monocytes (%) (Auto) 6, Eosinophils (%) (Auto) 0, Basophils (%) (Auto) 0, Neutrophils # (Auto) 6.3, Lymphocytes # (Auto) 0.6L, Monocytes # (Auto) 0.4, Eosinophils # (Auto) 0.0, Basophils # (Auto) 0.0, Sodium Level 140, Potassium Level 4.0, Chloride Level 109H, Carbon Dioxide Level 20L, Anion Gap 11, Blood Urea Nitrogen 25H, Creatinine 0.67, Estimat Glomerular Filtration Rate > 60, BUN /Creatinine Ratio 37, Glucose Level 144H, Calcium Level 8.5, Magnesium Level 2.0 , Troponin I < 0.30, Phosphorus Level 3.9, Triglycerides Level 38, Cholesterol Level 128, LDL Cholesterol Direct 53, VLDL Cholesterol 8, HDL Cholesterol 56, Thyroid Stimulating Hormone (TSH) 0.01L A/P-Cardiology Assessment/Admission Diagnosis A-fib with RVR - rate improved with IV Diltiazem H/O PAF first documented on this admission of 01/19/18 Epigastric discomfort of undetermined etiology Nausea of undetermined etiology OAC with Eliquis for stroke prophylaxis Abnormal ECG on which ischemia cannot be excluded (01/19/18). No clinical evidence of ACS Echo of 01/19/18: LVEF 70-75%, mild to mod biatrial enlargement, AoV sclerosis w/ o stenosis, PASP 40-45 mmHg H/o PSVT, short RP tachycardia, likely AVNRT, diagnosed during a hosp adm of Aug 2016 at [place], [place] MPI of September 24, 2016 showed no evidence of myocardial ischemia or infarction. Normal regional wall motion LVEF 73%. Normal LV cavity size Hypertension Chronic tobacco use Hypothyroidism, treated with thyroid replacement therapy, but she has been intermittently noncompliant Chronic insomnia Low body wgt. Reports slow wgt loss over several years Chronic head tremor, followed by her pcp H/o carpal tunnel syndrome Discussion and Recomendations * Treat nausea * When able to take oral meds, change to oral dilt * Continue stroke prophylaxis with anticoag * Monitor labs * I spoke with her and answered CV-related questions Clinical Quality Measures AMI/AHF: ASA po Prior to arrival: Yes DVT/VTE Risk/Contraindication: Risk Factor Score Per Nursin RFS Level Per Nursing on Admit: 3=High KOBY LEE MD FACP FAC CCDS Apr 20, 2018 18:30
[2018-04-20] MEDS ORDERED: KETOROLAC 15 MG/ML VIAL IV NR (19:00)
[2018-04-20] MEDS: meTOproloL SUCCINATE 50 MG (TOPROL XL) TAB PO SCH (20:56)
[2018-04-20] MEDS: MELATONIN 3 MG TABLET PO PRN (20:56)
[2018-04-20] MEDS ORDERED: APIXABAN 2.5 MG (ELIQUIS) TABLET PO SCH (21:00)
[2018-04-21] VITALS (15 sets, daily range): BP systolic 110–140; BP diastolic 67–85
[2018-04-21] MEDS: ONDANSETRON 4 MG/2 ML (SDV) Z0FRAN IV PRN (01:50)
[2018-04-21 04:20] LABS: BASOPHILS % (AUTO) 0 % (0-10); EOSINOPHILS # (AUTO) 0.1 10^3/uL (0.0-0.3); EOSINOPHILS % (AUTO) 1 % (0-10); HEMATOCRIT 27 % (35-52); HEMOGLOBIN 8.7 G/DL (11.5-16.0); LYMPHOCYTES # (AUTO) 0.5 X 10^3 (1.0-4.0); LYMPHOCYTES % (AUTO) 8 % (12-44); MEAN CORPUSCULAR HEMOGLOBIN 31 PG (25-34); MEAN CORPUSCULAR HGB CONC 32 G/DL (32-36); MEAN CORPUSCULAR VOLUME 98 FL (80-99); MEAN PLATELET VOLUME 10.2 FL (7.4-10.4); MONOCYTES # (AUTO) 0.7 X 10^3 (0.0-1.0); MONOCYTES % (AUTO) 12 % (0-12); NEUTROPHILS # (AUTO) 4.5 X 10^3 (1.8-7.8); NEUTROPHILS % (AUTO) 79 % (42-75); PLATELET COUNT 206 10^3/uL (130-400); RED BLOOD COUNT 2.79 10^6/uL (4.35-5.85); RED CELL DISTRIBUTION WIDTH 12.7 % (10.0-14.5); WHITE BLOOD COUNT 5.8 10^3/uL (4.3-11.0)
[2018-04-21 04:51] LABS: ALANINE AMINOTRANSFERASE 11 U/L (0-55); ALBUMIN 3.1 GM/DL (3.2-4.5); ALKALINE PHOSPHATASE 56 U/L (40-136); BILIRUBIN,TOTAL 0.5 MG/DL (0.1-1.0); BUN/CREATININE RATIO 31; CALCIUM 8.3 MG/DL (8.5-10.1); CARBON DIOXIDE 22 MMOL/L (21-32); CHLORIDE 108 MMOL/L (98-107); CREATININE SERUM 0.58 MG/DL (0.60-1.30); GFR ESTIMATED > 60; GLUCOSE 121 MG/DL (70-105); MAGNESIUM 1.8 MG/DL (1.8-2.4); PHOSPHORUS 2.3 MG/DL (2.3-4.7); SODIUM 138 MMOL/L (135-145); TOTAL PROTEIN 5.5 GM/DL (6.4-8.2)
[2018-04-21] MEDS: POTASSIUM CL 10MEQ/50ML IVPB 50 ML IV SCH (05:02)
[2018-04-21] MEDS: KCL 20 MEQ TAB (K-DUR) PO SCH (05:02)
[2018-04-21] MEDS: MAGNESIUM 1 GM/100 ML IVPB 100 ML IV SCH (05:02)
[2018-04-21] MEDS: SUCRALFATE 1 GM (CARAFATE) TAB PO SCH ×4 (06:06→21:03)
[2018-04-21] MEDS: LACTOBACILLUS Acidoph/Bulgar (LACTINEX/FLORANEX) TAB PO SCH ×3 (06:06→16:18)
[2018-04-21] MEDS: PANTOPRAZOLE 40 MG (PROTONIX) TAB PO SCH (06:06)
[2018-04-21] MEDS: NS IV 1000 ML 1,000 ML IV SCH (06:06)
--- NOTE | 2018-04-21 06:11 | Pulmonary Progress Note ---
Subjective Time Seen by Provider: 06:23 Subjective/Events-last exam Pt wants to go home. Exam Exam Vital Signs Date Time Temp Pulse Resp B/P (MAP) Pulse Ox O2 Delivery O2 Flow Rate FiO2 04/21/18 06:00 93 21 130/71 (90) 96 Nasal Cannula 2.00 04/21/18 05:00 80 21 130/69 (89) 97 Nasal Cannula 2.00 04/21/18 04:00 95 Nasal Cannula 2.00 04/21/18 04:00 98.2 86 21 139/79 (99) 97 Nasal Cannula 2.00 04/21/18 03:00 86 14 128/75 (92) 96 Nasal Cannula 2.00 04/21/18 02:00 108 20 135/79 (97) 95 Nasal Cannula 2.00 04/21/18 01:00 94 19 136/77 (96) 97 Nasal Cannula 2.00 04/21/18 01:00 94 04/21/18 00:00 95 Nasal Cannula 2.00 04/21/18 00:00 98.7 89 19 140/78 (98) 99 Nasal Cannula 2.00 04/20/18 23:00 88 18 130/103 (112) 97 Nasal Cannula 2.00 04/20/18 22:00 81 17 128/66 (86) 94 Nasal Cannula 2.00 04/20/18 21:00 116 10 136/86 (103) 95 Nasal Cannula 2.00 04/20/18 20:00 95 Nasal Cannula 2.00 04/20/18 20:00 99.1 98 10 136/73 (94) 96 Nasal Cannula 2.00 04/20/18 19:00 91 04/20/18 19:00 91 16 141/83 (102) 96 Nasal Cannula 2.00 04/20/18 18:00 103 19 144/71 (95) 96 Nasal Cannula 2.00 04/20/18 17:00 105 19 143/76 (98) 96 Nasal Cannula 2.00 04/20/18 16:37 99.8 04/20/18 16:37 Nasal Cannula 2.00 04/20/18 16:00 100 9 156/80 (105) 97 Nasal Cannula 2.00 04/20/18 15:07 81 19 129/73 (91) 97 Nasal Cannula 2.00 04/20/18 14:30 80 21 133/70 (91) 97 Nasal Cannula 2.00 04/20/18 14:00 85 35 148/71 (96) 97 Nasal Cannula 2.00 04/20/18 13:30 79 22 134/71 (92) 97 Nasal Cannula 2.00 04/20/18 13:00 70 13 132/69 (90) 96 Nasal Cannula 2.00 04/20/18 13:00 78 04/20/18 12:30 81 48 127/81 (96) 95 Nasal Cannula 2.00 04/20/18 12:30 97.0 Nasal Cannula 2.00 04/20/18 12:30 Nasal Cannula 2.00 04/20/18 12:00 79 16 125/73 (90) 97 Nasal Cannula 2.00 04/20/18 11:30 83 14 133/72 (92) 99 Nasal Cannula 2.00 04/20/18 11:30 98 Nasal Cannula 2.00 04/20/18 11:00 75 16 130/65 (86) 98 Nasal Cannula 2.00 04/20/18 10:30 76 14 121/76 (91) 94 Nasal Cannula 2.00 04/20/18 10:00 77 12 125/68 (87) 97 Nasal Cannula 2.00 04/20/18 09:30 68 12 134/68 (90) 95 Nasal Cannula 2.00 04/20/18 09:00 74 24 116/57 (76) 97 Nasal Cannula 2.00 04/20/18 08:46 96.9 Nasal Cannula 2.00 04/20/18 08:30 78 21 112/70 (84) 98 Nasal Cannula 2.00 04/20/18 08:15 Nasal Cannula 2.00 04/20/18 08:00 77 23 120/64 (82) 96 Nasal Cannula 2.00 04/20/18 07:30 84 42 118/60 (79) 97 Nasal Cannula 2.00 04/20/18 07:00 87 04/20/18 07:00 72 37 118/65 (82) 96 Nasal Cannula 2.00 04/20/18 06:30 75 28 120/63 (82) 91 Nasal Cannula 2.00 I & O 04/21/18 07:00 Intake Total 1500 ml Output Total 750 ml Balance 750 ml General Appearance: No Apparent Distress HEENT: Normal ENT Inspection Neck: Normal Inspection Respiratory: Chest Non Tender, Lungs Clear, Normal Breath Sounds, No Accessory Muscle Use, No Respiratory Distress Cardiovascular: Irregularly Irregular Capillary Refill: Less Than 3 Seconds Extremity: Normal Capillary Refill Neurologic/Psychiatric: Alert, Oriented x3, No Motor/Sensory Deficits, Normal Mood/Affect Skin: Normal Color, Warm/Dry Results Lab Laboratory Tests 04/19/18 21:30 04/20/18 03:30 04/21/18 03:25 Assessment/Plan Assessment/Plan Afib RVR -Cardizem gtt- is now off -Cardiology following Tobacco use -Education Hypothyroid-- iatrogenic hyperthyroid TSH is 0.1 -Hold Synthroid for now will let hospitalist continue to follow. Anemia -Monitor -Check occult stool Will transfer to [facility] with tele RAMOS HARKINS DO Apr 21, 2018 06:11
[2018-04-21] MEDS ORDERED: LEVOTHYROXINE 112 MCG (LEVOTHROID) TAB PO SCH (06:30)
--- NOTE | 2018-04-21 07:45 | Diagnostic Imaging Report ---
INDICATION: Shortness of breath, 04/20/2018. Single view of the chest demonstrates cardiac enlargement with stable hilar fullness left greater than right. There is increasing infiltrate and effusion in both bases. There is no pneumothorax. Osseous structures are stable. IMPRESSION: Slightly increased effusion and infiltrate in both bases. Dictated by: Dictated on workstation # [id number]
--- NOTE | 2018-04-21 08:44 | Progress Note-Cardiology ---
Cardiology SOAP Progress Note Subjective: Sitting up in bed. Reports epigastric discomfort has improved and only has a "twinge" now. No c/o dyspnea or palpitations. Wants to go home. Objective: I&O/Vital Signs 04/21/18 04/21/18 04/21/18 04/21/18 06:00 06:22 07:00 07:00 Pulse 93 86 93 Resp 21 21 B/P (MAP) 130/71 (90) 133/77 (95) Pulse Ox 96 93 O2 Delivery Nasal Cannula Room Air Room Air O2 Flow Rate 2.00 04/21/18 04/21/18 04/21/18 04/21/18 08:00 08:00 08:30 09:00 Temp 98.7 Pulse 92 91 Resp 22 23 B/P (MAP) 140/67 (91) O2 Delivery Room Air Room Air Room Air 04/21/18 04/21/18 04/21/18 04/21/18 10:00 11:00 11:31 11:46 Temp 100.3 100.3 Pulse 93 85 Resp 16 24 B/P (MAP) 138/85 (102) 133/80 (97) Pulse Ox 96 O2 Delivery Room Air Room Air 04/21/18 04/21/18 04/21/18 04/21/18 12:00 12:16 13:00 13:00 Temp 99.1 Pulse 96 90 90 Resp 18 18 B/P (MAP) 111/72 (85) 110/72 (85) Pulse Ox 93 95 O2 Delivery Room Air Room Air 04/21/18 04/21/18 04/21/18 04/21/18 14:00 15:00 16:00 16:36 Temp 99.3 Pulse 86 85 86 91 Resp 28 24 25 24 B/P (MAP) 116/71 (86) Pulse Ox 92 96 92 93 O2 Delivery Room Air Room Air Room Air Room Air 04/21/18 00:00 Intake Total 1225 ml Output Total 550 ml Balance 675 ml Weight (Pounds): 108 Weight (Ounces): 5.0 Weight (Calculated Kilograms): [id number] Constitutional: AAO x 3, other (frail) Respiratory: No accessory muscle use, No respiratory distress; chest expansion is symmetric, chest is bilaterally symmetric, lungs clear to auscultation Cardiovascular: irregularly irregular; No JVD; S1 and S2, systolic murmur Gastrointestional: soft, round; No distended; audible bowel sounds Extremities: no lower extremity edema bilateral Neurologic/Psychiatric: grossly intact Skin: No rash, No ulcerations Results/Procedures: Labs Laboratory Tests 04/21/18 03:25: White Blood Count 5.8, Red Blood Count 2.79L, Hemoglobin 8.7L, Hematocrit 27L, Mean Corpuscular Volume 98, Mean Corpuscular Hemoglobin 31, Mean Corpuscular Hemoglobin Concent 32, Red Cell Distribution Width 12.7, Platelet Count 206, Mean Platelet Volume 10.2, Neutrophils (%) (Auto) 79H, Lymphocytes (%) (Auto) 8L , Monocytes (%) (Auto) 12, Eosinophils (%) (Auto) 1, Basophils (%) (Auto) 0, Neutrophils # (Auto) 4.5, Lymphocytes # (Auto) 0.5L, Monocytes # (Auto) 0.7, Eosinophils # (Auto) 0.1, Basophils # (Auto) 0.0, Sodium Level 138, Potassium Level 4.0, Chloride Level 108H, Carbon Dioxide Level 22, Anion Gap 8, Blood Urea Nitrogen 18, Creatinine 0.58L, Estimat Glomerular Filtration Rate > 60, BUN /Creatinine Ratio 31, Glucose Level 121H, Calcium Level 8.3L, Phosphorus Level 2.3, Magnesium Level 1.8, Total Bilirubin 0.5, Aspartate Amino Transf (AST/SGOT ) 16, Alanine Aminotransferase (ALT/SGPT) 11, Alkaline Phosphatase 56, Total Protein 5.5L, Albumin 3.1L 04/21/18 14:05: Urine Color YELLOW, Urine Clarity CLEAR, Urine pH 5, Urine Specific [place] 1.015L, Urine Protein 2+H, Urine Glucose (UA) NEGATIVE, Urine Ketones 2+H, Urine Nitrite NEGATIVE, Urine Bilirubin NEGATIVE, Urine Urobilinogen NORMAL, Urine Leukocyte Esterase 3+H, Urine RBC (Auto) 4+H, Urine RBC 2-5H, Urine WBC TNTCH, Urine Squamous Epithelial Cells 2-5, Urine Crystals NONE, Urine Bacteria LARGEH, Urine Casts NONE, Urine Mucus NEGATIVE, Urine Culture Indicated YES Microbiology 04/20/18 MRSA Screen - Final, Complete MRSA not isolated 04/21/18 Urine Culture - Preliminary, Resulted Sent To [facility] A/P: Assessment: A-fib with RVR - rate improved, but not ideal H/O PAF first documented on this admission of 01/19/18 Epigastric discomfort and nausea of undetermined etiology - improved with addition of PPI/Carafate Anemia of undetermined etiology, consider GI bleed (Hospitalist Svce managing) Hyperthyroidism, probably iatrogenic (Hospitalist Svce managing) OAC with Eliquis for stroke prophylaxis Abnormal ECG on which ischemia cannot be excluded (01/19/18). No clinical evidence of ACS Echo of 01/19/18: LVEF 70-75%, mild to mod biatrial enlargement, AoV sclerosis w/ o stenosis, PASP 40-45 mmHg H/o PSVT, short RP tachycardia, likely AVNRT, diagnosed during a hosp adm of Aug 2016 at [place], [place] MPI of September 24, 2016 showed no evidence of myocardial ischemia or infarction. Normal regional wall motion LVEF 73%. Normal LV cavity size Hypertension Chronic tobacco use Hypothyroidism, treated with thyroid replacement therapy, but she has been intermittently noncompliant - currently hyperthyroid Chronic insomnia Low body wgt. Reports slow wgt loss over several years Chronic head tremor, followed by her pcp H/o carpal tunnel syndrome Plan: * HR improved, but not ideal - Toprol XL 50mg (home dose) re-started this morning - monitor HR and adjust medications as indicated * Continue stroke prophylaxis with anticoag * Monitor labs * Dr. Durham spoke with her and answered CV-related questions * Hyperthyroidism - TSH 0.01 - levothyroxine on hold - medical services managing * OK to transfer to medical floor * Discharge planning in place - home vs facility - family/pt to decide today * Mild anemia - medical services managing Physician Assessment Physician Assessment Feels better today. No cp or palp or syncope. Nausea and abdominal discomfort resolved Lungs: good bilat air entry Cor: irreg Ext: no c/c/e A&R * As documented in our note above that I updated (italics) and as noted below * Consider w/u for GI bleed * Consider blood transfusion if further drop in H/H * Hold thyroid replacement for now and consider reduced dose in future * I spoke with her and her fam and answered CV-related questions Clinical Quality Measures AMI/AHF: ASA po Prior to arrival: Yes DWAYNE COLLINS LEASING MANAGER Apr 21, 2018 08:44 KOBY DURHAM MD FACP FACC [facility] Apr 21, 2018 17:06
[2018-04-21] MEDS: APIXABAN 2.5 MG (ELIQUIS) TABLET PO SCH ×2 (08:50→21:03)
[2018-04-21] MEDS: ASPIRIN E.C. 81 MG (ECOTRIN) TAB PO SCH (08:51)
[2018-04-21] MEDS ORDERED: lisINopril 10 MG (PRINIVIL) TABLET PO SCH (09:00)
[2018-04-21] MEDS ORDERED: DILTIAZEM 240 MG (CARDIZEM CD) CAP PO SCH (09:00)
[2018-04-21] MEDS ORDERED: meTOproloL SUCCINATE 50 MG (TOPROL XL) TAB PO SCH (09:00)
[2018-04-21] MEDS ORDERED: DILTIAZEM 180 MG (CARDIZEM CD) CAP PO SCH (09:00)
[2018-04-21] MEDS ORDERED: NON-FORMULARY MEDICATION 1 EA EA (Diltiazem HCl (Diltiazem 24Hr ER) 240 MG) PO SCH (09:00)
[2018-04-21] MEDS: ACETAMINOPHEN 325 MG TABLET/CAPLET (TYLENOL) PO PRN ×2 (11:46→19:36)
[2018-04-21 15:24] LABS: BILIRUBIN,URINE NEGATIVE (NEGATIVE); CLARITY,URINE CLEAR; COLOR,URINE YELLOW; GLUCOSE, URINE (UA) NEGATIVE (NEGATIVE); KETONES,URINE 2+ (NEGATIVE); LEUKOCYTE ESTERASE ,URINE 3+ (NEGATIVE); NITRITE,URINE NEGATIVE (NEGATIVE); PH,URINE 5 (5-9); PROTEIN,URINE 2+ (NEGATIVE); UROBILINOGEN,URINE NORMAL (NORMAL)
[2018-04-21 15:36] LABS: BACTERIA,URINE LARGE /HPF; WBC,URINE TNTC /HPF
[2018-04-21] MEDS ORDERED: PIPERACILLIN SODIUM/TAZOBACTAM 4.5 GM in D5W 100 ML IVPB 100 ML IV NR (17:30)
[2018-04-21] MEDS: meTOproloL SUCCINATE 50 MG (TOPROL XL) TAB PO SCH (21:03)
[2018-04-21] MEDS: MELATONIN 3 MG TABLET PO PRN (21:03)
[2018-04-21] MEDS: PIPERACILLIN SODIUM/TAZOBACTAM 4.5 GM in D5W 100 ML IVPB 100 ML IV SCH (23:43)
[2018-04-22] VITALS (8 sets, daily range): BP systolic 103–134; BP diastolic 64–79
[2018-04-22 06:08] LABS: BASOPHILS % (AUTO) 0 % (0-10); EOSINOPHILS # (AUTO) 0.1 10^3/uL (0.0-0.3); EOSINOPHILS % (AUTO) 1 % (0-10); HEMATOCRIT 25 % (35-52); HEMOGLOBIN 8.1 G/DL (11.5-16.0); LYMPHOCYTES # (AUTO) 0.6 X 10^3 (1.0-4.0); LYMPHOCYTES % (AUTO) 11 % (12-44); MEAN CORPUSCULAR HEMOGLOBIN 32 PG (25-34); MEAN CORPUSCULAR HGB CONC 33 G/DL (32-36); MEAN CORPUSCULAR VOLUME 98 FL (80-99); MEAN PLATELET VOLUME 10.6 FL (7.4-10.4); MONOCYTES # (AUTO) 0.7 X 10^3 (0.0-1.0); MONOCYTES % (AUTO) 13 % (0-12); NEUTROPHILS # (AUTO) 4.2 X 10^3 (1.8-7.8); NEUTROPHILS % (AUTO) 75 % (42-75); PLATELET COUNT 178 10^3/uL (130-400); RED BLOOD COUNT 2.54 10^6/uL (4.35-5.85); RED CELL DISTRIBUTION WIDTH 12.4 % (10.0-14.5); WHITE BLOOD COUNT 5.5 10^3/uL (4.3-11.0)
--- NOTE | 2018-04-22 06:12 | Pulmonary Progress Note ---
Subjective Time Seen by Provider: 06:11 Subjective/Events-last exam Pt has been running a fever. CXR shows new left pleural effusion. PT has worsening SOB and pleuritic CP. Labs pending. UA is positive for UTI. Exam Exam Vital Signs Date Time Temp Pulse Resp B/P (MAP) Pulse Ox O2 Delivery O2 Flow Rate FiO2 04/22/18 03:34 99.4 114 16 123/73 (90) 90 Room Air 04/22/18 01:00 95 04/21/18 20:10 100.1 89 22 134/78 (96) 94 Room Air 04/21/18 20:05 94 Room Air 04/21/18 19:00 96 04/21/18 16:36 99.3 91 24 116/71 (86) 93 Room Air 04/21/18 16:00 86 25 92 Room Air 04/21/18 15:00 85 24 96 Room Air 04/21/18 14:00 86 28 92 Room Air 04/21/18 13:00 90 18 110/72 (85) 95 Room Air 04/21/18 13:00 90 04/21/18 12:16 99.1 04/21/18 12:00 96 18 111/72 (85) 93 Room Air 04/21/18 11:46 100.3 04/21/18 11:31 100.3 04/21/18 11:00 85 24 133/80 (97) 96 Room Air 04/21/18 10:00 93 16 138/85 (102) Room Air 04/21/18 09:00 91 23 Room Air 04/21/18 08:30 Room Air 04/21/18 08:00 98.7 04/21/18 08:00 92 22 140/67 (91) Room Air 04/21/18 07:00 93 21 133/77 (95) 93 Room Air 04/21/18 07:00 86 04/21/18 06:22 Room Air I & O 04/22/18 07:00 Intake Total 800 ml Output Total 475 ml Balance 325 ml General Appearance: Anxious, Chronically ill, Moderate Distress, Thin HEENT: Normal ENT Inspection Neck: Normal Inspection Respiratory: Normal Breath Sounds, Accessory Muscle Use, Decreased Breath Sounds (L>R), Respiratory Distress Cardiovascular: Tachycardia Capillary Refill: Less Than 3 Seconds Extremity: Normal Capillary Refill Neurologic/Psychiatric: Alert, Oriented x3, No Motor/Sensory Deficits, Normal Mood/Affect Skin: Normal Color, Warm/Dry Results Lab Laboratory Tests 04/21/18 03:25 Assessment/Plan Assessment/Plan Left pleural effusion - new r/o PNA -Continue Zosyn cline cultures pending -CBC is pending - if leukocytosis will cline culture - MRSA swab was negative - BNP is >500 -Will give lasix 40 mg IV X 1 -Check CT scan with contrast r/o empyema vs simple effusion -PT is on Eliquis doubt PE CP pleuritic - probably secondary to pneumonia -check EKG and troponin s HYpophos, hypomag -replace UTI -Zosyn Afib -Cardiology following Tobacco use -Education Hypothyroid-- iatrogenic hyperthyroid TSH is 0.1 -Hold Synthroid for now will let hospitalist continue to follow. Anemia -Monitor -Check occult stool 233 Will have low threshold for transferring back to ICU. RAMOS HARKINS DO Apr 22, 2018 06:12
[2018-04-22 06:31] LABS: BUN/CREATININE RATIO 35; CALCIUM 8.3 MG/DL (8.5-10.1); CARBON DIOXIDE 22 MMOL/L (21-32); CHLORIDE 107 MMOL/L (98-107); CREATININE SERUM 0.62 MG/DL (0.60-1.30); GFR ESTIMATED > 60; GLUCOSE 118 MG/DL (70-105); MAGNESIUM 1.9 MG/DL (1.8-2.4); PHOSPHORUS 2.2 MG/DL (2.3-4.7); POTASSIUM 3.8 MMOL/L (3.6-5.0); SODIUM 138 MMOL/L (135-145)
[2018-04-22] MEDS: PIPERACILLIN SODIUM/TAZOBACTAM 4.5 GM in D5W 100 ML IVPB 100 ML IV SCH (06:33)
[2018-04-22] MEDS: LACTOBACILLUS Acidoph/Bulgar (LACTINEX/FLORANEX) TAB PO SCH (06:34)
[2018-04-22] MEDS: PANTOPRAZOLE 40 MG (PROTONIX) TAB PO SCH (06:34)
[2018-04-22] MEDS: SUCRALFATE 1 GM (CARAFATE) TAB PO SCH (06:34)
[2018-04-22] MEDS ORDERED: KCL 20 MEQ TAB (K-DUR) PO NR (07:30)
[2018-04-22] MEDS ORDERED: FUROSEMIDE 40 MG/4 ML INJ (LASIX) IVP NR ×2 (07:30→09:15)
[2018-04-22] MEDS ORDERED: IOHEXOL 350 MG/ML 150 ML (OMNIPAQUE 350) VIAL IV ONE (08:00)
[2018-04-22] MEDS ORDERED: NS 250 ML (IVPB) BAG IV ONE (08:00)
[2018-04-22] MEDS: ACETAMINOPHEN 325 MG TABLET/CAPLET (TYLENOL) PO PRN (08:04)
--- NOTE | 2018-04-22 08:08 | Diagnostic Imaging Report ---
INDICATION: Dyspnea. 0308 hrs. FINDINGS: Upright portable AP view of the chest is obtained. Since the study one day earlier, there has been further volume loss in the left lung with perihilar and basilar infiltrate showing interval increase as well. There is blunting of the costophrenic sulci, greater on the left with persistent right perihilar and basilar atelectasis and/or pneumonitis. IMPRESSION: Atelectasis and probable increasing infiltrate in the left lung with associated pleural fluid, greater on the left. Dictated by: Dictated on workstation # [id number]
[2018-04-22] MEDS: morphine INJ 4 MG/ML 1 ML (VIAL/SYRINGE) IV PRN ×2 (08:09→10:58)
[2018-04-22] MEDS ORDERED: POT PHOS/NA PHOS (K-PHOS NEUTRAL) PO ONE (09:00)
--- NOTE | 2018-04-22 09:21 | Progress Note-Cardiology ---
Cardiology SOAP Progress Note Subjective: Generally feels unwell. Somewhat short of breath. Generalized discomfort that she is not able to specify. No palp or syncope Objective: I&O/Vital Signs 04/22/18 04/22/18 04/22/18 01:00 03:34 07:27 Temp 99.4 98.8 Pulse 95 114 111 Resp 16 26 B/P (MAP) 123/73 (90) 114/79 (91) Pulse Ox 90 94 O2 Delivery Room Air Room Air 04/22/18 00:00 Intake Total 600 ml Output Total 275 ml Balance 325 ml Weight (Pounds): 106 Weight (Ounces): 9.0 Weight (Calculated Kilograms): [id number] Constitutional: AAO x 3, other (frail) Respiratory: No accessory muscle use, No respiratory distress; chest expansion is symmetric, chest is bilaterally symmetric, lungs clear to auscultation Cardiovascular: irregularly irregular; No JVD; S1 and S2, systolic murmur Gastrointestional: soft, round; No distended; audible bowel sounds Extremities: no lower extremity edema bilateral Neurologic/Psychiatric: grossly intact Skin: No rash, No ulcerations Results/Procedures: Labs Laboratory Tests 04/21/18 14:05: Urine Color YELLOW, Urine Clarity CLEAR, Urine pH 5, Urine Specific [place] 1.015L, Urine Protein 2+H, Urine Glucose (UA) NEGATIVE, Urine Ketones 2+H, Urine Nitrite NEGATIVE, Urine Bilirubin NEGATIVE, Urine Urobilinogen NORMAL, Urine Leukocyte Esterase 3+H, Urine RBC (Auto) 4+H, Urine RBC 2-5H, Urine WBC TNTCH, Urine Squamous Epithelial Cells 2-5, Urine Crystals NONE, Urine Bacteria LARGEH, Urine Casts NONE, Urine Mucus NEGATIVE, Urine Culture Indicated YES 04/22/18 05:20: White Blood Count 5.5, Red Blood Count 2.54L, Hemoglobin 8.1L, Hematocrit 25L, Mean Corpuscular Volume 98, Mean Corpuscular Hemoglobin 32, Mean Corpuscular Hemoglobin Concent 33, Red Cell Distribution Width 12.4, Platelet Count 178, Mean Platelet Volume 10.6H, Neutrophils (%) (Auto) 75, Lymphocytes (%) (Auto) 11L, Monocytes (%) (Auto) 13H, Eosinophils (%) (Auto) 1, Basophils (%) (Auto) 0 , Neutrophils # (Auto) 4.2, Lymphocytes # (Auto) 0.6L, Monocytes # (Auto) 0.7, Eosinophils # (Auto) 0.1, Basophils # (Auto) 0.0, Sodium Level 138, Potassium Level 3.8, Chloride Level 107, Carbon Dioxide Level 22, Anion Gap 9, Blood Urea Nitrogen 22H, Creatinine 0.62, Estimat Glomerular Filtration Rate > 60, BUN/ Creatinine Ratio 35, Glucose Level 118H, Calcium Level 8.3L, Phosphorus Level 2.2L, Magnesium Level 1.9, B-Type Natriuretic Peptide 540.0H 04/22/18 06:22: Lactic Acid Level 1.35 Microbiology 04/20/18 MRSA Screen - Final, Complete MRSA not isolated 04/21/18 Urine Culture - Preliminary, Resulted Sent To [facility] Laboratory Tests 04/21/18 03:25 04/22/18 05:20 A/P: Assessment: A-fib with RVR H/O PAF first documented on this admission of 01/19/18 Epigastric discomfort and nausea of undetermined etiology - improved with addition of PPI/Carafate Anemia of undetermined etiology, consider GI bleed (Hospitalist Svce managing) Hyperthyroidism, probably iatrogenic (Hospitalist Svce managing) OAC with Eliquis for stroke prophylaxis Probable pneumonia, being managed by Dr Lal Abnormal ECG on which ischemia cannot be excluded (01/19/18). No clinical evidence of ACS Echo of 01/19/18: LVEF 70-75%, mild to mod biatrial enlargement, AoV sclerosis w/ o stenosis, PASP 40-45 mmHg H/o PSVT, short RP tachycardia, likely AVNRT, diagnosed during a hosp adm of Aug 2016 at [place], [place] MPI of September 24, 2016 showed no evidence of myocardial ischemia or infarction. Normal regional wall motion LVEF 73%. Normal LV cavity size Hypertension Chronic tobacco use Hypothyroidism, treated with thyroid replacement therapy, but she has been intermittently noncompliant - currently hyperthyroid Chronic insomnia Low body wgt. Reports slow wgt loss over several years Chronic head tremor, followed by her pcp H/o carpal tunnel syndrome Plan: * Appears clinically somewhat worse than yesterday * We recommend blood transfusion to keep Hgb greater than 10 (H/H has been declining) * We recommend a w/u for GI bleed * Continue long-acting dilt and beta-venkata for vent rate control * Monitor labs closely * Keep on tele Clinical Quality Measures AMI/AHF: ASA po Prior to arrival: Yes KOBY LEE MD FACP FAC CCDS Apr 22, 2018 09:20
--- NOTE | 2018-04-22 09:32 | Diagnostic Imaging Report ---
PROCEDURE: CT angiography of the chest with contrast. TECHNIQUE: Multiple contiguous axial images were obtained through the chest after uneventful bolus administration of intravenous contrast. Reconstructed CTA MIP acquisitions were also performed. INDICATION: Dyspnea or possible pulmonary embolism with abnormal chest x-ray. Comparison is made to the study of 01/08/2017. There is aneurysmal dilatation of the thoracic aorta reaching approximately 3.5 cm in diameter at the level of the aortic arch. In addition, there does appear to be mural thrombus possibly related to dissection at the level of the aortic arch and proximal descending thoracic aorta with partial opacification of what appears be a false lumen superiorly with contrast. In addition, there has been development of significant mediastinal hematoma along the aorta and associated pericardial and bilateral pleural fluid. There is collapse of the lower lobes, bilaterally with partial collapse of the left upper lobe. No pulmonary arterial filling defect is identified. IMPRESSION: Findings are most compatible with probable leak arising from the second thoracic aortic aneurysm with eccentric mural thrombus and irregularity involving the aorta just distal to the take off of great vessels from the arch. This may represent hemopericardium and possible hemothorax. These findings were telephoned to the referring clinician at 0920 hours on 04/22/2018. Dictated by: Dictated on workstation # [id number]
[2018-04-22] MEDS ORDERED: DILT180C90 PO (09:34)
[2018-04-22] MEDS ORDERED: NS IV 1000 ML 1,000 ML IV SCH (09:45)
[2018-04-22] MEDS ORDERED: CATHETER FLUSH 10 ML SYR IV PRN (09:45)
--- NOTE | 2018-04-22 09:52 | Discharge Summary-Hospitalist ---
Diagnosis/Chief Complaint Date of Admission Apr 19, 2018 at 22:57 Date of Discharge Discharge Date: Apr 22, 2018 Admission Diagnosis Atrial fibrillation with rapid ventricular response. 2.weight loss. Discharge Diagnosis (1) Leaking thoracic aortic aneurysm (TAA) Status: Acute (2) Aneurysm of aortic arch Status: Acute (3) Atrial fibrillation with rapid ventricular response Status: Acute (4) Chest pain Status: Acute (5) Hypothyroidism Status: Chronic (6) HTN (hypertension) Status: Chronic (7) UTI (urinary tract infection) Status: Acute Discharge Summary Discharge Physical Exam Allergies: Coded Allergies: No Known Drug Allergies (Verified , 05/10/09) Vitals & I&Os Vital Signs Date Time Temp Pulse Resp B/P (MAP) Pulse Ox O2 Delivery O2 Flow Rate FiO2 04/22/18 10:15 98.7 118 107/69 (82) 95 Room Air 04/22/18 07:27 26 04/21/18 06:00 2.00 General Appearance: Alert, Oriented X3, Cooperative Respiratory: Clear to Auscultation, Normal Air Movement Cardiovascular: Other (Irr Irr) Hospital Course Hospital course: Patient had a fairly standard hospital course when she was admitted for atrial fibrillation with rapid ventricular response with UTI placed on appropriate medical management by cardiology and empirically placed her on Zosyn and she stabilized and was moved from the ICU down to [facility] room 401. Due to continued chest pain and infiltrate on chest x-ray on the left side with possible pleural effusion and hemoglobin decreased to 8.1 pulmonology was consulted and he ordered CT angiogram of the chest that revealed aneurysm that was not present on prior CT scan January 2017 it appeared to have a leak and may be focal dissection along with the 3.5 cm thoracic aneurysm so she was deemed a candidate for CT surgery evaluation and I updated [facility] with the entire case and they accepted the patient in transfer via air ambulance and she was stable at time of transfer but receiving 2 units of blood along with normal saline at 70 mL an hour and was awake and alert but appeared to be in a change of clinical status from the aneurysm leak. Labs (last 24 hrs) Laboratory Tests 04/21/18 14:05: Urine Color YELLOW, Urine Clarity CLEAR, Urine pH 5, Urine Specific [place] 1.015L, Urine Protein 2+H, Urine Glucose (UA) NEGATIVE, Urine Ketones 2+H, Urine Nitrite NEGATIVE, Urine Bilirubin NEGATIVE, Urine Urobilinogen NORMAL, Urine Leukocyte Esterase 3+H, Urine RBC (Auto) 4+H, Urine RBC 2-5H, Urine WBC TNTCH, Urine Squamous Epithelial Cells 2-5, Urine Crystals NONE, Urine Bacteria LARGEH, Urine Casts NONE, Urine Mucus NEGATIVE, Urine Culture Indicated YES 04/22/18 05:20: White Blood Count 5.5, Red Blood Count 2.54L, Hemoglobin 8.1L, Hematocrit 25L, Mean Corpuscular Volume 98, Mean Corpuscular Hemoglobin 32, Mean Corpuscular Hemoglobin Concent 33, Red Cell Distribution Width 12.4, Platelet Count 178, Mean Platelet Volume 10.6H, Neutrophils (%) (Auto) 75, Lymphocytes (%) (Auto) 11L, Monocytes (%) (Auto) 13H, Eosinophils (%) (Auto) 1, Basophils (%) (Auto) 0 , Neutrophils # (Auto) 4.2, Lymphocytes # (Auto) 0.6L, Monocytes # (Auto) 0.7, Eosinophils # (Auto) 0.1, Basophils # (Auto) 0.0, Sodium Level 138, Potassium Level 3.8, Chloride Level 107, Carbon Dioxide Level 22, Anion Gap 9, Blood Urea Nitrogen 22H, Creatinine 0.62, Estimat Glomerular Filtration Rate > 60, BUN/ Creatinine Ratio 35, Glucose Level 118H, Calcium Level 8.3L, Phosphorus Level 2.2L, Magnesium Level 1.9, B-Type Natriuretic Peptide 540.0H 04/22/18 06:22: Lactic Acid Level 1.35 Microbiology 04/20/18 MRSA Screen - Final, Complete MRSA not isolated 04/21/18 Urine Culture - Preliminary, Resulted Gram Negative Russ Sent To [facility] Patient resulted labs reviewed. Pending Labs Laboratory Tests 04/22/18 05:20: White Blood Count 5.5, Red Blood Count 2.54, Hemoglobin 8.1, Hematocrit 25, Mean Corpuscular Volume 98, Mean Corpuscular Hemoglobin 32, Mean Corpuscular Hemoglobin Concent 33, Red Cell Distribution Width 12.4, Platelet Count 178, Mean Platelet Volume 10.6, Neutrophils (%) (Auto) 75, Lymphocytes (%) (Auto) 11 , Monocytes (%) (Auto) 13, Eosinophils (%) (Auto) 1, Basophils (%) (Auto) 0, Neutrophils # (Auto) 4.2, Lymphocytes # (Auto) 0.6, Monocytes # (Auto) 0.7, Eosinophils # (Auto) 0.1, Basophils # (Auto) 0.0, Sodium Level 138, Potassium Level 3.8, Chloride Level 107, Carbon Dioxide Level 22, Anion Gap 9, Blood Urea Nitrogen 22, Creatinine 0.62, Estimat Glomerular Filtration Rate > 60, BUN/ Creatinine Ratio 35, Glucose Level 118, Calcium Level 8.3, Phosphorus Level 2.2 , Magnesium Level 1.9, B-Type Natriuretic Peptide 540.0 04/22/18 06:22: Lactic Acid Level 1.35 Discussion & Recommendations Discharge Planning: >30 minutes discharge planning Discharge Home Medications: Active Scripts Active Diltiazem 24Hr Cd (Diltiazem HCl) 180 Mg Cap.er.24h 360 Mg PO DAILY 14 Days Reported Floranex Tablet (L. Acidophilus/Bulgaricus) 1 Each Tablet 1 Tab.chew PO AC Diltiazem 24Hr ER (Diltiazem HCl) 240 Mg Cap.er.24h 240 Mg PO DAILY Eliquis (Apixaban) 2.5 Mg Tablet 2.5 Mg PO BID Levothyroxine Sodium 112 Mcg Tablet 112 Mcg PO DAILY Metoprolol Succinate 50 Mg Tab.er.24h 25 Mg PO HS TAKE 1/2 (50MG) TABLET Metoprolol Succinate 50 Mg Tab.er.24h 50 Mg PO DAILY Lisinopril 10 Mg Tablet 10 Mg PO DAILY Instructions to patient/family Please see electronic discharge instructions given to patient. Clinical Quality Measures AMI/AHF: ASA po Prior to arrival: Yes DVT/VTE Risk/Contraindication: Risk Factor Score Per Nursin RFS Level Per Nursing on Admit: 3=High Problem Qualifiers (1) Chest pain: Chest pain type: unspecified Qualified Codes: R07.9 - Chest pain, unspecified (2) HTN (hypertension): Hypertension type: essential hypertension Qualified Codes: I10 - Essential ( primary) hypertension (3) UTI (urinary tract infection): Urinary tract infection type: acute cystitis FUNMI LANDIN DO Apr 22, 2018 09:52
[2018-04-22] MEDS ORDERED: NS IV 500 ML 500 ML IV SCH (09:54)
== END 2018-04-22 11:25 | disposition short-term general hospital (02) | DRG 308 ==
LOC: EDUNIT# 20:46 → ER 20:47 → ICU 22:57 → 4TH 04-21 16:25
PROVIDERS: ADMIT Family Medicine; ATTEND Family Medicine
DX: I48.91 Unspecified atrial fibrillation (principal); I71.1 Thoracic aortic aneurysm, ruptured; N30.00 Acute cystitis without hematuria; F17.210 Nicotine dependence, cigarettes, uncomplicated; I10 Essential (primary) hypertension; E03.9 Hypothyroidism, unspecified; D64.9 Anemia, unspecified; Z66 Do not resuscitate; G47.00 Insomnia, unspecified; R63.4 Abnormal weight loss; R25.1 Tremor, unspecified; F41.9 Anxiety disorder, unspecified; K59.09 Other constipation; M19.91 Primary osteoarthritis, unspecified site; K64.9 Unspecified hemorrhoids; R94.31 Abnormal electrocardiogram [ECG] [EKG]; H91.90 Unspecified hearing loss, unspecified ear; Z79.01 Long term (current) use of anticoagulants; Z86.79 Personal history of other diseases of the circulatory system; Z82.49 Family history of ischemic heart disease and other diseases of the circulatory system; Z91.19 Patient's noncompliance with other medical treatment and regimen
CPT/HCPCS: 36415; 71045; 71275; 80048; 80053; 80061; 81000; 83605; 83735; 83874; 83880; 84100; 84443; 84484; 85025; 85379; 85610; 85730; 86850; 86900; 86901; 86920; 87040; 87081; 87088; 87186; 93005; 93041; 96361; 96365; 96366; 96375; 96376

== ENCOUNTER 2018-05-19 21:04 | Emergency (ER) | payer MEDICARE, OTHER ==
[~2018-05-19] VITALS: Ht 165.1 cm; Wt 42.2 kg
[~2018-05-19 21:04] MED LIST changes: +DILT180C90 PO; +DILT240C PO; +LEVO112T55 PO
--- NOTE | 2018-05-19 21:25 | ED Cough/URI ---
General Stated Complaint: COUGH/SOB Source: patient Exam Limitations: no limitations History of Present Illness Date Seen by Provider: May 19, 2018 Time Seen by Provider: 21:23 Initial Comments To ER with reports of cough and shortness of breath. Her oxygen saturation was in the low 90% range and she was fairly dyspneic per report. Outpatient labs, chest x-ray, Mucinex, Tessalon Perles and Z-Marty were ordered for tomorrow by the patient's primary care provider SINDY Harding. However family wanted the patient evaluated tonight. She was recently admitted for atrial fibrillation with rapid ventricular response, transferred to the [facility] for a leaking aortic arch aneurysm. Elected not to have any surgical repair done. Timing/Duration: constant Severity/Quality: productive cough Associated Symptoms: cough Allergies and Home Medications Allergies Coded Allergies: No Known Drug Allergies (Verified , 05/10/09) Home Medications Apixaban 2.5 Mg Tablet, 2.5 MG PO BID, (Reported) Diltiazem HCl 240 Mg Cap.er.24h, 240 MG PO DAILY, (Reported) Diltiazem HCl 180 Mg Cap.er.24h, 360 MG PO DAILY Prescribed by: FUNMI LANDIN on 04/22/18 0934 L. Acidophilus/Bulgaricus 1 Each Tablet, 1 TAB.CHEW PO AC, (Reported) Levothyroxine Sodium 112 Mcg Tablet, 112 MCG PO DAILY, (Reported) Lisinopril 10 Mg Tablet, 10 MG PO DAILY, (Reported) Metoprolol Succinate 50 Mg Tab.er.24h, 50 MG PO DAILY, (Reported) Metoprolol Succinate 50 Mg Tab.er.24h, 25 MG PO HS, (Reported) TAKE 1/2 (50MG) TABLET Patient Home Medication List Home Medication List Reviewed: Yes Review of Systems Constitutional: see HPI EENTM: see HPI Respiratory: see HPI, cough Cardiovascular: no symptoms reported Genitourinary: no symptoms reported Musculoskeletal: no symptoms reported Skin: no symptoms reported Psychiatric/Neurological: No Symptoms Reported Hematologic/Lymphatic: No Symptoms Reported Past Uznashq-Frgocu-Ssfdkh Hx Patient Social History Alcohol Beverage of Choice: Wine Type Used: Cigarettes 2nd Hand Smoke Exposure: No Recent Hopitalizations: No Immunizations Up To Date Tetanus Booster (TDap): Less than 5yrs Date of Pneumonia Vaccine: Sep 17, 2015 Date of Influenza Vaccine: Sep 25, 2017 Seasonal Allergies Seasonal Allergies: No Past Medical History Surgeries: Yes Appendectomy Respiratory: No Currently Using CPAP: No Currently Using BIPAP: No Cardiac: Yes (SVT) Atrial Fibrillation Neurological: Yes (tremors) 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 Genitourinary: No Gastrointestinal: Yes Chronic Constipation, Hemorrhoids Musculoskeletal: Yes (RIGHT CARPAL TUNNEL--NO SURGERY) Arthritis Endocrine: Yes Hypothyroidsim HEENT: Yes Hearing Impairment: Hard of Hearing Cancer: No Psychosocial: Yes Sleep Difficulties Integumentary: No Blood Disorders: Yes Family Medical History No Pertinent Family Hx Physical Exam Vital Signs Vital Signs - First Documented 05/19/18 21:06 Temp 98.2 Pulse 80 Resp 19 B/P (MAP) 109/78 (88) Pulse Ox 98 O2 Delivery Nasal Cannula O2 Flow Rate 2.00 Capillary Refill : General Appearance: WD/WN, no apparent distress Eyes: Bilateral Eye Normal Inspection, Bilateral Eye PERRL, Bilateral Eye EOMI HEENT: PERRL/EOMI, normal ENT inspection Neck: non-tender, full range of motion Respiratory: normal breath sounds, no respiratory distress, no accessory muscle use Gastrointestinal: normal bowel sounds, non tender Neurologic/Psychiatric: alert, normal mood/affect, oriented x 3 Skin: normal color, warm/dry Progress/Results/Core Measures Suspected Sepsis SIRS Temperature: Pulse: Respiratory Rate: Laboratory Tests 05/19/18 21:15: White Blood Count 11.0 Blood Pressure / Mean: Laboratory Tests 05/19/18 21:15: Creatinine 0.76, Platelet Count 399, Total Bilirubin 0.5 Results/Orders Lab Results Laboratory Tests Test 05/19/18 21:15 Range/Units White Blood Count 11.0 4.3-11.0 10^3/uL Red Blood Count 3.83 L 4.35-5.85 10^6/uL Hemoglobin 11.4 L 11.5-16.0 G/DL Hematocrit 35 35-52 % Mean Corpuscular Volume 92 80-99 FL Mean Corpuscular Hemoglobin 30 25-34 PG Mean Corpuscular Hemoglobin Concent 32 32-36 G/DL Red Cell Distribution Width 15.5 H 10.0-14.5 % Platelet Count 399 130-400 10^3/uL Mean Platelet Volume 9.6 7.4-10.4 FL Neutrophils (%) (Auto) 87 H 42-75 % Lymphocytes (%) (Auto) 7 L 12-44 % Monocytes (%) (Auto) 6 0-12 % Eosinophils (%) (Auto) 1 0-10 % Basophils (%) (Auto) 0 0-10 % Neutrophils # (Auto) 9.5 H 1.8-7.8 X 10^3 Lymphocytes # (Auto) 0.8 L 1.0-4.0 X 10^3 Monocytes # (Auto) 0.6 0.0-1.0 X 10^3 Eosinophils # (Auto) 0.1 0.0-0.3 10^3/uL Basophils # (Auto) 0.0 0.0-0.1 10^3/uL Neutrophils % (Manual) 87 % Lymphocytes % (Manual) 7 % Monocytes % (Manual) 3 % Eosinophils % (Manual) 3 % Basophils % (Manual) 0 % Band Neutrophils 0 % Clumped Platelets OCCASIONAL Blood Morphology Comment NORMAL Sodium Level 137 135-145 MMOL/L Potassium Level 4.0 3.6-5.0 MMOL/L Chloride Level 103 98-107 MMOL/L Carbon Dioxide Level 20 L 21-32 MMOL/L Anion Gap 14 5-14 MMOL/L Blood Urea Nitrogen 15 7-18 MG/DL Creatinine 0.76 0.60-1.30 MG/DL Estimat Glomerular Filtration Rate > 60 BUN/Creatinine Ratio 20 Glucose Level 125 H 70-105 MG/DL Calcium Level 8.6 8.5-10.1 MG/DL Total Bilirubin 0.5 0.1-1.0 MG/DL Aspartate Amino Transf (AST/SGOT) 16 5-34 U/L Alanine Aminotransferase (ALT/SGPT) 7 0-55 U/L Alkaline Phosphatase 84 40-136 U/L B-Type Natriuretic Peptide 374.3 H <100.0 PG/ML Total Protein 6.1 L 6.4-8.2 GM/DL Albumin 3.0 L 3.2-4.5 GM/DL My Orders Orders - TORRIE ALCALA APRN Cbc With Automated Diff (05/19/18 21:19) Comprehensive Metabolic Panel (05/19/18 21:19) Iv Heplock-Insert (Order) (05/19/18 21:19) BNP (05/19/18 21:19) Ekg Tracing (05/19/18 21:19) Manual Differential (05/19/18 21:15) Chest 1 View, Ap/Pa Only (05/19/18 21:19) Azithromycin Tablet (Zithromax Tablet) (05/19/18 22:00) Vital Signs/I&O 05/19/18 21:06 Temp 98.2 Pulse 80 Resp 19 B/P (MAP) 109/78 (88) Pulse Ox 98 O2 Delivery Nasal Cannula O2 Flow Rate 2.00 Capillary Refill : Diagnostic Imaging Diagonstic Imaging: Xray Plain Films/CT/US/NM/MRI: chest Comments NAME: TRU MELLO MED REC#: [id number] PT STATUS: REG ER : 1930 PHYSICIAN: TORRIE ALCALA APRN ADMIT DATE: 05/19/18/ER Draft Date of Exam:05/19/18 CHEST 1 VIEW, AP/PA ONLY INDICATION: Shortness of breath and cough. COMPARISON: 04/22/2018. FINDINGS: Vszqh-[id number] left pleural effusion persists. Left perihilar and basilar heterogeneous opacities are present. Right pleural effusion has resolved. Ill-defined right upper lobe nodular opacity is likely secondary to monitoring lead. No pneumothorax. Stable cardiomegaly. IMPRESSION: 1. Persistent small to moderate left pleural effusion and associated left basilar pulmonary opacities. This could represent chronic atelectasis, though a recurrent/persistent pneumonia could be present. Underlying mass lesion is also a possibility. Dictated on workstation # [id number] Dict: 05/19/[id number] Trans: 05/19/182138 [facility] [id number] Interpreted by: ANDRE EVERETT MD Electronically signed by: Departure Communication (Admissions) 2221-patient is been 94-95% on room air during her entire ER stay. Impression Primary Impression: Aneurysm of aortic arch Additional Impressions: Atrial fibrillation Cough Atelectasis Disposition: 01 HOME, SELF-CARE Condition: Stable Departure-Patient Inst. Decision time for Depature: 21:41 Referrals: LB BENITEZ MD (PCP/Family) Primary Care Physician Patient Instructions: Cough, Adult (DC) Add. Discharge Instructions: 1. Return to ER for any concerns 2. Follow-up with your doctor next week 3. TORRIE ALCALA APRN May 19, 2018 21:25
[2018-05-19 21:27] LABS: BASOPHILS % (AUTO) 0 % (0-10); EOSINOPHILS # (AUTO) 0.1 10^3/uL (0.0-0.3); EOSINOPHILS % (AUTO) 1 % (0-10); HEMATOCRIT 35 % (35-52); HEMOGLOBIN 11.4 G/DL (11.5-16.0); LYMPHOCYTES # (AUTO) 0.8 X 10^3 (1.0-4.0); LYMPHOCYTES % (AUTO) 7 % (12-44); MEAN CORPUSCULAR HEMOGLOBIN 30 PG (25-34); MEAN CORPUSCULAR HGB CONC 32 G/DL (32-36); MEAN CORPUSCULAR VOLUME 92 FL (80-99); MEAN PLATELET VOLUME 9.6 FL (7.4-10.4); MONOCYTES # (AUTO) 0.6 X 10^3 (0.0-1.0); MONOCYTES % (AUTO) 6 % (0-12); NEUTROPHILS # (AUTO) 9.5 X 10^3 (1.8-7.8); NEUTROPHILS % (AUTO) 87 % (42-75); PLATELET COUNT 399 10^3/uL (130-400); RED BLOOD COUNT 3.83 10^6/uL (4.35-5.85); RED CELL DISTRIBUTION WIDTH 15.5 % (10.0-14.5)
--- NOTE | 2018-05-19 21:39 | Diagnostic Imaging Report ---
INDICATION: Shortness of breath and cough. COMPARISON: 04/22/2018. FINDINGS: Uxvhj-[id number] left pleural effusion persists. Left perihilar and basilar heterogeneous opacities are present. Right pleural effusion has resolved. Ill-defined right upper lobe nodular opacity is likely secondary to monitoring lead. No pneumothorax. Stable cardiomegaly. IMPRESSION: 1. Persistent small to moderate left pleural effusion and associated left basilar pulmonary opacities. This could represent chronic atelectasis, though a recurrent/persistent pneumonia could be present. Underlying mass lesion is also a possibility. Dictated by: Dictated on workstation # [id number]
[2018-05-19] MEDS ORDERED: LEVO500T2 PO (21:42)
[2018-05-19 21:46] LABS: BAND NEUTROPHILS 0 %; BASOPHILS % (MANUAL) 0 %; EOSINOPHILS % (MANUAL) 3 %; LYMPHOCYTES % (MANUAL) 7 %; MONOCYTES % (MANUAL) 3 %; NEUTROPHILS % (MANUAL) 87 %; PLATELET CLUMPS OCCASIONAL; RBC MORPH NORMAL
[2018-05-19 21:52] LABS: ALANINE AMINOTRANSFERASE 7 U/L (0-55); ALKALINE PHOSPHATASE 84 U/L (40-136); BILIRUBIN,TOTAL 0.5 MG/DL (0.1-1.0); BUN/CREATININE RATIO 20; CALCIUM 8.6 MG/DL (8.5-10.1); CARBON DIOXIDE 20 MMOL/L (21-32); CHLORIDE 103 MMOL/L (98-107); CREATININE SERUM 0.76 MG/DL (0.60-1.30); GFR ESTIMATED > 60; GLUCOSE 125 MG/DL (70-105); SODIUM 137 MMOL/L (135-145); TOTAL PROTEIN 6.1 GM/DL (6.4-8.2)
[2018-05-19] MEDS ORDERED: AZITHROMYCIN 250 MG TAB (ZITHROMAX) PO SCH (22:00)
[2018-05-19 23:06] VITALS: BP 111/74
== END 2018-05-19 23:06 | disposition home or self-care (01) ==
LOC: EDUNIT# 21:04 → ER 21:05
DX: I71.2 Thoracic aortic aneurysm, without rupture (principal); I48.91 Unspecified atrial fibrillation; J98.11 Atelectasis; E03.9 Hypothyroidism, unspecified; Z87.19 Personal history of other diseases of the digestive system; Z90.710 Acquired absence of both cervix and uterus; Z79.01 Long term (current) use of anticoagulants; Z90.89 Acquired absence of other organs
CPT/HCPCS: 36415; 71045; 80053; 83880; 85007; 85027; 93005